=== PATIENT | female | born 1975 | race Hispanic/Latino ===

== ENCOUNTER 2018-02-08 07:41 | Emergency (ER) | payer BC ==
--- NOTE | 2018-02-08 08:19 | ER ---
Nurse's Notes [facility] Name: Melody Hoffman Age: 42 yrs Sex: Female : 1975 Arrival Date: 02/08/2018 Time: 07:43 Bed 14 Private MD: Zev Jean Baptiste Diagnosis: Cutaneous abscess of right lower limb Presentation: 02/08 07:59 Presenting complaint: Patient states: abscess to right inner thigh since Thursday, she iw squeezed it on Thursday and has been draining, also feels like her right knee is swollen and her thigh is painful, denies fever, c/o nausea. Transition of care: patient was not received from another setting of care. Onset of symptoms was February 05, 2018. Risk Assessment: Do you want to hurt yourself or someone else? Patient reports no desire to harm self or others. Initial Sepsis Screen: Does the patient meet any 2 criteria? No. Patient's initial sepsis screen is negative. Does the patient have a suspected source of infection? No. Patient's initial sepsis screen is negative. Care prior to arrival: None. 07:59 Method Of Arrival: Ambulatory iw 07:59 Acuity: ALMA 4 iw Triage Assessment: 08:25 Bite description: bite sustained to right leg and medial aspect of right thigh by an hj unknown animal, animal information: vaccination(s) is not applicable. General: Appears in no apparent distress. uncomfortable, Behavior is calm, cooperative, appropriate for age. Pain: Complains of pain in right leg and medial aspect of right thigh. 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 - Social history:: Smoking status: Patient/guardian denies using tobacco. - Ebola Screening: : Patient negative for fever greater than or equal to 101.5 degrees Fahrenheit, and additional compatible Ebola Virus Disease symptoms Patient denies exposure to infectious person Patient denies travel to an Ebola-affected area in the 21 days before illness onset No symptoms or risks identified at this time. Screenin:25 Abuse screen: Denies threats or abuse. Denies injuries from another. Nutritional hj screening: No deficits noted. Tuberculosis screening: No symptoms or risk factors identified. Fall Risk None identified. Assessment: 08:25 Derm: Skin Skin is pink, warm \T\ dry. hj Vital Signs: 08:03 BP 156 / 105; Pulse 70; Resp 16; Temp 98.2; Pulse Ox 97% on R/A; Weight 103.42 kg; iw Height 5 ft. 3 in. (160.02 cm); Pain 7/10; 08:03 Body Mass Index 40.39 (103.42 kg, 160.02 cm) iw ED Course: 07:43 Patient arrived in ED. rg4 07:44 Zev Jean Baptiste MD is Private Physician. rg4 07:48 Dori Luna FNP-C [facility]. kb 07:48 Giovanni Poon MD is Attending Physician. kb 08:02 Triage completed. iw 08:03 Arm band placed on. iw 08:24 Cortez Leon, RN is Primary Nurse. hj 08:24 Wound Culture Sent. hj 08:26 Patient has correct armband on for positive identification. Placed in gown. Bed in low hj position. Call light in reach. Side rails up X 1. 08:33 No provider procedures requiring assistance completed. Patient did not have IV access hj during this emergency room visit. Administered Medications: 08:18 Drug: Bactrim (160 mg-800 mg (DS) 1 tablet Route: PO; hj 08:24 Follow up: Response: No adverse reaction hj Outcome: 08:18 Discharge ordered by . kb 08:33 Discharged to home ambulatory, with family. hj 08:33 Condition: stable 08:33 Discharge instructions given to patient, family, Instructed on discharge instructions, follow up and referral plans. medication usage, Demonstrated understanding of instructions, follow-up care, medications, Prescriptions given X 1. 08:34 Patient left the ED. hj Addendum: 02/11/2018 10:20 Addendum: Culture Results: Positive wound culture. No further action required. Bacteria s s sensitive to prescribed antibiotic. Signatures: Dori Luna FNP-C FNP-Ckb Williams, Irene, RN RN Chel Neal RN RN Cortez Leon RN RN Opal Flowers rg4
--- NOTE | 2018-02-08 08:19 | EDPHYS ---
Physician Documentation [facility] Name: Melody Hoffman Age: 42 yrs Sex: Female : 1975 Arrival Date: 02/08/2018 Time: 07:43 Bed 14 Private MD: Zev Jean Baptiste ED Physician Giovanni Poon HPI: 02/08 08:17 This 42 yrs old Female presents to ER via Ambulatory with complaints of Insect kb Bite. 08:17 The patient presents with an abscess of the medial aspect of right thigh. Description: kb draining, erythematous, swollen. Onset: The symptoms/episode began/occurred 4 day(s) ago. Possible cause(s): unknown. Associated signs and symptoms: Pertinent positives: drainage, erythema, swelling, Pertinent negatives: foreign body sensation, fever, headache, nausea, shortness of breath, vomiting. Modifying factors: the symptoms are alleviated by nothing, the symptoms are aggravated by squeezing the lesion and expressing the contents, touching. Severity of symptoms: At their worst the symptoms were mild, in the emergency department the symptoms are unchanged. The patient has not experienced similar symptoms in the past. The patient has not recently seen a physician. 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 - Social history:: Smoking status: Patient/guardian denies using tobacco. - Ebola Screening: : Patient negative for fever greater than or equal to 101.5 degrees Fahrenheit, and additional compatible Ebola Virus Disease symptoms Patient denies exposure to infectious person Patient denies travel to an Ebola-affected area in the 21 days before illness onset No symptoms or risks identified at this time. ROS: 08:16 Constitutional: Negative for fever, chills, and weight loss, Cardiovascular: Negative kb for chest pain, palpitations, and edema, Respiratory: Negative for shortness of breath, cough, wheezing, and pleuritic chest pain, Abdomen/GI: Negative for abdominal pain, nausea, vomiting, diarrhea, and constipation, MS/Extremity: Negative for injury and deformity, Neuro: Negative for headache, weakness, numbness, tingling, and seizure. 08:16 Skin: Positive for abscess, of the medial aspect of right thigh. Exam: 08:16 Constitutional: This is a well developed, well nourished patient who is awake, alert, kb and in no acute distress. Head/Face: Normocephalic, atraumatic. Chest/axilla: Normal chest wall appearance and motion. Nontender with no deformity. No lesions are appreciated. Cardiovascular: Regular rate and rhythm with a normal S1 and S2. No gallops, murmurs, or rubs. Normal PMI, no JVD. No pulse deficits. Respiratory: Lungs have equal breath sounds bilaterally, clear to auscultation and percussion. No rales, rhonchi or wheezes noted. No increased work of breathing, no retractions or nasal flaring. Abdomen/GI: Soft, non-tender, with normal bowel sounds. No distension or tympany. No guarding or rebound. No evidence of tenderness throughout. MS/ Extremity: Pulses equal, no cyanosis. Neurovascular intact. Full, normal range of motion. Neuro: Awake and alert, GCS 15, oriented to person, place, time, and situation. Cranial nerves II-XII grossly intact. Motor strength 5/5 in all extremities. Sensory grossly intact. Cerebellar exam normal. Normal gait. 08:16 Skin: abscess, that is small, of the medial aspect of right thigh, with drainage, that is purulent. Vital Signs: 08:03 BP 156 / 105; Pulse 70; Resp 16; Temp 98.2; Pulse Ox 97% on R/A; Weight 103.42 kg; iw Height 5 ft. 3 in. (160.02 cm); Pain 7/10; 08:03 Body Mass Index 40.39 (103.42 kg, 160.02 cm) iw MDM: 07:52 Patient medically screened. kb 08:16 Data reviewed: vital signs, nurses notes. Data interpreted: Pulse oximetry: on room air kb is 97 %. Interpretation: normal. Counseling: I had a detailed discussion with the patient and/or guardian regarding: the historical points, exam findings, and any diagnostic results supporting the discharge/admit diagnosis, lab results, the need for outpatient follow up, a family practitioner, to return to the emergency department if symptoms worsen or persist or if there are any questions or concerns that arise at home. 02/08 08:15 Order name: Wound Culture kb Administered Medications: 08:18 Drug: Bactrim (160 mg-800 mg (DS) 1 tablet Route: PO; hj 08:24 Follow up: Response: No adverse reaction Disposition: 13:27 Co-signature as Attending Physician, Giovanni Poon MD I agree with the assessment and vicente plan of care. Disposition: 02/08/18 08:18 Discharged to Home. Impression: Cutaneous abscess of right lower limb. - Condition is Stable. - Discharge Instructions: Skin Abscess, [id number]. - Prescriptions for Bactrim DS 800- 160 mg Oral Tablet - take 1 tablet by ORAL route every 12 hours for 7 days; 14 tablet. - Work release form, Medication Reconciliation Form, Thank You Letter, Antibiotic Education, Family Work Release form. - Follow up: Emergency Department; When: As needed; Reason: Worsening of condition. Follow up: Private Physician; When: 2 - 3 days; Reason: Recheck today's complaints, Continuance of care, Re-evaluation by your physician. Signatures: Dispatcher [employer] EDDori Griggs, VALANCE CUTTER-C VALANCE CUTTER-Ckb Giovanni Poon MD MD cha Williams, Irene, JORDY RN Cortez Cunha RN RN Corrections: (The following items were deleted from the chart) 08:34 08:18 02/08/2018 08:18 Discharged to Home. Impression: Cutaneous abscess of right lower hj limb. Condition is Stable. Forms are Medication Reconciliation Form, Thank You Letter, Antibiotic Education, Prescription Opioid Use. Follow up: Emergency Department; When: As needed; Reason: Worsening of condition. Follow up: Private Physician; When: 2 - 3 days; Reason: Recheck today's complaints, Continuance of care, Re-evaluation by your physician. kb
[2018-02-08] MEDS ORDERED: SMZ./TMP. 800/160 MG TABLET ONE (08:26)
[2018-02-08 08:38] VITALS: BP 156/105; TEMP 98.2; O2SAT 97
== END 2018-02-08 08:34 | disposition home or self-care (01) ==
LOC: ER 07:41
DX: L02.415 Cutaneous abscess of right lower limb (principal); I10 Essential (primary) hypertension
CPT/HCPCS: 87070; 87077; 87186; 87205; 99283

== ENCOUNTER 2018-02-28 13:50 | Emergency (ER) | payer BC ==
[2018-02-28] MEDS ORDERED: HYDROCODONE/APAP 10/325 TAB ONE (15:38)
[2018-02-28] MEDS ORDERED: IBUPROFEN 200 MG TAB PO ONE (15:38)
[2018-02-28] MEDS ORDERED: IBUPROFEN 400 MG TAB ONE (15:38)
--- NOTE | 2018-02-28 16:44 | RAD REPORT ---
EXAM DESCRIPTION: RAD - Ankle Left 3 View - 02/28/2018 4:31 pm CLINICAL HISTORY: PAIN COMPARISON: No comparisons FINDINGS: Soft tissue swelling is seen about the ankle. A fracture is not identified. Small calcanea l spur seen. IMPRESSION: Soft tissue swelling without fracture.
--- NOTE | 2018-02-28 16:45 | RAD REPORT ---
EXAM DESCRIPTION: RAD - Knee Left 3 View - 02/28/2018 4:31 pm CLINICAL HISTORY: PAIN COMPARISON: No comparisons FINDINGS: Mild medial joint compartment space narrowing is present. No acute fracture or dislocation is seen. Soft tissue swelling is evident.
--- NOTE | 2018-02-28 16:45 | RAD REPORT ---
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 Small suprapatellar joint effusion is present. No acute fracture delineated.
--- NOTE | 2018-02-28 17:34 | ER ---
Nurse's Notes [facility] Name: Melody Hoffman Age: 42 yrs Sex: Female : 1975 Arrival Date: 02/28/2018 Time: 13:53 Bed 27 Private MD: Zev Jean Baptiste Diagnosis: Pain in left ankle and joints of left foot;Pain in right knee;Pain in left knee Presentation: 02/28 13:58 Presenting complaint: Patient states: last night i fell though a porch and hurt my L hj knee and L ankle; denies hitting head and LOC:. Transition of care: patient was not received from another setting of care. Onset of symptoms was February 28, 2018. Risk Assessment: Do you want to hurt yourself or someone else? Patient reports no desire to harm self or others. Initial Sepsis Screen: Does the patient meet any 2 criteria? No. Patient's initial sepsis screen is negative. Does the patient have a suspected source of infection? No. Patient's initial sepsis screen is negative. Care prior to arrival: None. 13:58 Method Of Arrival: Ambulatory 13:58 Acuity: ALMA 4 hj Triage Assessment: 14:00 General: Appears in no apparent distress. uncomfortable, Behavior is calm, cooperative, hj appropriate for age. Pain: Complains of pain in left leg. 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 - Social history:: Smoking status: Patient/guardian denies using tobacco, Patient uses alcohol, occasionally. - Ebola Screening: : Patient negative for fever greater than or equal to 101.5 degrees Fahrenheit, and additional compatible Ebola Virus Disease symptoms Patient denies exposure to infectious person Patient denies travel to an Ebola-affected area in the 21 days before illness onset. Screenin:00 Abuse screen: Denies threats or abuse. Denies injuries from another. Nutritional hj screening: No deficits noted. Tuberculosis screening: No symptoms or risk factors identified. Fall Risk None identified. Assessment: 17:08 Musculoskeletal: Circulation, motion, and sensation intact. Capillary refill < 3 mg2 seconds, Swelling present in left leg, left ankle. Vital Signs: 14:00 BP 130 / 92; Pulse 88; Resp 18; Temp 98.0(O); Pulse Ox 100% on R/A; Weight 95.25 kg; hj Height 5 ft. 3 in. (160.02 cm); Pain 10/10; 16:59 BP 137 / 81; Pulse 77; Resp 18; Pulse Ox 100% on R/A; mg2 17:32 BP 127 / 80; Pulse 88; Resp 18; Pulse Ox 100% on R/A; mg2 14:00 Body Mass Index 37.20 (95.25 kg, 160.02 cm) hj ED Course: 13:53 Patient arrived in ED. mr 13:54 Zev Jean Baptiste MD is Private Physician. mr 13:59 Triage completed. hj 14:00 Arm band placed on right wrist. hj 14:02 Patient has correct armband on for positive identification. Bed in low position. Call hj light in reach. Side rails up X 1. Adult w/ patient. 15:01 Edson Rajan, PHIL is PHCP. pm1 15:01 Delmer Mirza MD is Attending Physician. pm1 15:30 Marcello Blanco RN is Primary Nurse. mg2 16:26 X-ray completed. Portable x-ray completed in exam room. Patient tolerated procedure la2 well. 16:31 Knee Left 3 View XRAY In Process Unspecified. EDMS 16:31 Knee Right 3 View XRAY In Process Unspecified. EDMS 16:31 Ankle Left 3 View XRAY In Process Unspecified. EDMS 16:59 No provider procedures requiring assistance completed. Patient did not have IV access mg2 during this emergency room visit. 17:20 Crutch training done. Air stirrup applied to left ankle. mg2 17:33 Curtis Becerra MD is Referral Physician. pm1 Administered Medications: 15:57 Drug: [place] 10 mg-325 mg 1 tabs Route: PO; mg2 17:19 Follow up: Response: No adverse reaction; Marked relief of symptoms mg2 15:57 Drug: Ibuprofen 600 mg Route: PO; mg2 17:19 Follow up: Response: No adverse reaction; Marked relief of symptoms mg2 Outcome: 17:33 Discharge ordered by . pm1 17:48 Discharged to home via wheelchair. mg2 17:48 Condition: stable 17:48 Discharge instructions given to patient, Instructed on discharge instructions, follow up and referral plans. medication usage, crutch walking, Demonstrated understanding of instructions, follow-up care, crutch walking, Prescriptions given X 2. 17:48 Patient left the ED. mg2 Signatures: Dispatcher [employer] EDMA KaelChiara Henry, RN RN Edson Vasquez NP COFFEE TASTER pm1 Angie Moses la2 Marcello Blanco RN RN mg2
--- NOTE | 2018-02-28 17:34 | EDPHYS ---
Physician Documentation [facility] Name: Melody Hoffman Age: 42 yrs Sex: Female : 1975 Arrival Date: 02/28/2018 Time: 13:53 Bed 27 Private MD: Zev Jean Baptiste ED Physician Delmer Mirza HPI: 02/28 17:00 This 42 yrs old Female presents to ER via Ambulatory with complaints of Fall pm1 Injury. 17:00 Onset: The symptoms/episode began/occurred last night. Severity of symptoms: in the pm1 emergency department the symptoms are unchanged. The patient has not experienced similar symptoms in the past. Patient was walking on a rotten porch last night and her right leg broke through the porch with her left leg moving laterally, as if she was doing the splits. Patient complaining of pain to left ankle and bilateral knees. 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 - Social history:: Smoking status: Patient/guardian denies using tobacco, Patient uses alcohol, occasionally. - Ebola Screening: : Patient negative for fever greater than or equal to 101.5 degrees Fahrenheit, and additional compatible Ebola Virus Disease symptoms Patient denies exposure to infectious person Patient denies travel to an Ebola-affected area in the 21 days before illness onset. ROS: 17:00 Constitutional: Negative for fever, chills, and weight loss, Eyes: Negative for injury, pm1 pain, redness, and discharge, ENT: Negative for injury, pain, and discharge, Neck: Negative for injury, pain, and swelling, Cardiovascular: Negative for chest pain, palpitations, and edema, Respiratory: Negative for shortness of breath, cough, wheezing, and pleuritic chest pain, Abdomen/GI: Negative for abdominal pain, nausea, vomiting, diarrhea, and constipation, Back: Negative for injury and pain, : Negative for injury, bleeding, discharge, and swelling. 17:00 Skin: Negative for injury, rash, and discoloration, Neuro: Negative for headache, weakness, numbness, tingling, and seizure. 17:00 MS/extremity: Positive for pain, left knee, right knee, and right ankle. Exam: 17:00 Constitutional: This is a well developed, well nourished patient who is awake, alert, pm1 and in no acute distress. Head/Face: Normocephalic, atraumatic. Eyes: Pupils equal round and reactive to light, extra-ocular motions intact. Lids and lashes normal. Conjunctiva and sclera are non-icteric and not injected. Cornea within normal limits. Periorbital areas with no swelling, redness, or edema. ENT: Nares patent. No nasal discharge, no septal abnormalities noted. Tympanic membranes are normal and external auditory canals are clear. Oropharynx with no redness, swelling, or masses, exudates, or evidence of obstruction, uvula midline. Mucous membranes moist. Neck: Trachea midline, no thyromegaly or masses palpated, and no cervical lymphadenopathy. Supple, full range of motion without nuchal rigidity, or vertebral point tenderness. No Meningismus. Chest/axilla: Normal chest wall appearance and motion. Nontender with no deformity. No lesions are appreciated. Cardiovascular: Regular rate and rhythm with a normal S1 and S2. No gallops, murmurs, or rubs. Normal PMI, no JVD. No pulse deficits. Respiratory: Lungs have equal breath sounds bilaterally, clear to auscultation and percussion. No rales, rhonchi or wheezes noted. No increased work of breathing, no retractions or nasal flaring. Abdomen/GI: Soft, non-tender, with normal bowel sounds. No distension or tympany. No guarding or rebound. No evidence of tenderness throughout. Back: No spinal tenderness. No costovertebral tenderness. Full range of motion. 17:00 Skin: Warm, dry with normal turgor. Normal color with no rashes, no lesions, and no evidence of cellulitis. 17:00 Musculoskeletal/extremity: Extremities: grossly normal except: noted in the right knee: pain, noted in the left knee: tenderness, noted in the left lateral ankle: swelling, tenderness. 17:00 Musculoskeletal/extremity: ROM: intact in all extremities, Circulation is intact in all extremities. 17:00 Neuro: Orientation: is normal, Motor: is normal, no acute changes, moves all fours. Vital Signs: 14:00 BP 130 / 92; Pulse 88; Resp 18; Temp 98.0(O); Pulse Ox 100% on R/A; Weight 95.25 kg; hj Height 5 ft. 3 in. (160.02 cm); Pain 10/10; 16:59 BP 137 / 81; Pulse 77; Resp 18; Pulse Ox 100% on R/A; mg2 17:32 BP 127 / 80; Pulse 88; Resp 18; Pulse Ox 100% on R/A; mg2 14:00 Body Mass Index 37.20 (95.25 kg, 160.02 cm) hj MDM: 15:01 Patient medically screened. pm1 17:32 Data reviewed: vital signs. Counseling: I had a detailed discussion with the patient pm1 and/or guardian regarding: the historical points, exam findings, and any diagnostic results supporting the discharge/admit diagnosis, radiology results, the need for outpatient follow up, to return to the emergency department if symptoms worsen or persist or if there are any questions or concerns that arise at home. 02/28 17:25 Order name: Urine Dipstick--Ancillary (enter results) bd 02/28 17:25 Order name: Urine --Ancillary (enter results) bd 02/28 15:23 Order name: Knee Left 3 View XRAY; Complete Time: 16:48 pm1 02/28 15:23 Order name: Knee Right 3 View XRAY; Complete Time: 16:48 pm1 02/28 15:23 Order name: Ankle Left 3 View XRAY; Complete Time: 16:48 pm1 02/28 15:23 Order name: Urine Dipstick-Ancillary (obtain specimen); Complete Time: 15:57 pm1 02/28 15:23 Order name: Urine Test (obtain specimen); Complete Time: 15:57 pm1 02/28 16:49 Order name: Crutches; Complete Time: 17:19 pm1 02/28 16:49 Order name: Aircast Ankle Splint; Complete Time: 17:19 pm1 Administered Medications: 15:57 Drug: [place] 10 mg-325 mg 1 tabs Route: PO; mg2 17:19 Follow up: Response: No adverse reaction; Marked relief of symptoms mg2 15:57 Drug: Ibuprofen 600 mg Route: PO; mg2 17:19 Follow up: Response: No adverse reaction; Marked relief of symptoms mg2 Disposition: 03/01 09:58 Co-signature as Attending Physician, Delmer Mirza MD. Chart complete. ma2 Disposition: 02/28/18 17:33 Discharged to Home. Impression: Pain in left ankle and joints of left foot, Pain in right knee, Pain in left knee. - Condition is Stable. - Discharge Instructions: Cast or Splint Care, Adult, Crutch Use, Knee Pain, Ankle Pain. - Prescriptions for Tylenol- Codeine #3 300-30 mg Oral Tablet - take 2 tablets by ORAL route every 6 hours As needed; 20 tablet. Naprosyn 500 mg Oral Tablet - take 1 tablet by ORAL route 2 times per day take with food; 30 tablet. - Medication Reconciliation Form, Thank You Letter, Prescription Opioid Use form. - Follow up: Emergency Department; When: As needed; Reason: Worsening of condition. Follow up: Curtis Becerra MD; When: 5 - 6 days; Reason: Recheck today's complaints, Continuance of care, Re-evaluation by your physician. Follow up: Private Physician; When: 5 - 6 days; Reason: Recheck today's complaints, Continuance of care, Re-evaluation by your physician. - Problem is new. - Symptoms have improved. Signatures: Dispatcher [employer] EDMS Cortez Leon RN RN hj Edson Rajan NP WASH OPERATOR pm1 Delmer Mirza MD MD ma2 Marcello Blanco RN RN mg2 Corrections: (The following items were deleted from the chart) 02/28 17:48 17:33 02/28/2018 17:33 Discharged to Home. Impression: Pain in left ankle and joints of mg2 left foot; Pain in right knee; Pain in left knee. Condition is Stable. Forms are Medication Reconciliation Form, Thank You Letter, Antibiotic Education, Prescription Opioid Use. Follow up: Emergency Department; When: As needed; Reason: Worsening of condition. Follow up: Curtis Becerra; When: 5 - 6 days; Reason: Recheck today's complaints, Continuance of care, Re-evaluation by your physician. Follow up: Private Physician; When: 5 - 6 days; Reason: Recheck today's complaints, Continuance of care, Re-evaluation by your physician. Problem is new. Symptoms have improved. pm1
[2018-02-28 22:07] LABS: Urine Blood NEGATIVE (NEG); Urine Glucose NEGATIVE (NEG); Urine Protein NEGATIVE (NEG)
[2018-03-02 13:58] VITALS: BP 127/80; TEMP 98; O2SAT 100
== END 2018-02-28 17:48 | disposition home or self-care (01) ==
LOC: ER 13:50
DX: M25.562 Pain in left knee (principal); M25.561 Pain in right knee; I10 Essential (primary) hypertension
CPT/HCPCS: 81003; 81025; 99284

== ENCOUNTER 2018-04-19 18:31 | Emergency (ER) | payer BC, SELFPAY ==
[2018-04-19] MEDS ORDERED: DEXAMETHASONE 4 MG TAB ONE (19:36)
--- NOTE | 2018-04-19 20:11 | EDPHYS ---
Physician Documentation [facility] Name: Melody Hoffman Age: 43 yrs Sex: Female : 1975 Arrival Date: 04/19/2018 Time: 18:35 Bed 11 Private MD: Zev Jean Baptiste ED Physician Adolfo Schafer HPI: 04/19 19:17 This 43 yrs old Female presents to ER via Ambulatory with complaints of Ear snw Pain, Sore Throat. 19:17 The patient presents with pain. The complaints affect the bilateral. Onset: The snw symptoms/episode began/occurred suddenly, 3 day(s) ago, and became worse and became persistent. Associated signs and symptoms: Pertinent positives: sore throat. Severity of symptoms: At their worst the symptoms were moderate severe. The patient has not experienced similar symptoms in the past. It is unknown whether or not the patient has recently seen a physician. 19:[address] Jean Baptiste. 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 - Social history:: Smoking status: Patient/guardian denies using tobacco, Patient uses alcohol, occasionally. Patient/guardian denies using street drugs, IV drugs. - Ebola Screening: : No symptoms or risks identified at this time. ROS: 19:16 Constitutional: Negative for fever, chills, and weight loss, Eyes: Negative for injury, snw pain, redness, and discharge, Neck: Negative for injury, pain, and swelling, Cardiovascular: Negative for chest pain, palpitations, and edema, Respiratory: Negative for shortness of breath, cough, wheezing, and pleuritic chest pain, Abdomen/GI: Negative for abdominal pain, nausea, vomiting, diarrhea, and constipation, Back: Negative for injury and pain, : Negative for injury, bleeding, discharge, and swelling, MS/Extremity: Negative for injury and deformity, Skin: Negative for injury, rash, and discoloration, Neuro: Negative for headache, weakness, numbness, tingling, and seizure. 19:16 ENT: Positive for sinus congestion, sore throat. Exam: 19:10 Constitutional: This is a well developed, well nourished patient who is awake, alert, snw and in no acute distress. Head/Face: Normocephalic, atraumatic. Eyes: Pupils equal round and reactive to light, extra-ocular motions intact. Lids and lashes normal. Conjunctiva and sclera are non-icteric and not injected. Cornea within normal limits. Periorbital areas with no swelling, redness, or edema. Neck: Trachea midline, no thyromegaly or masses palpated, and no cervical lymphadenopathy. Supple, full range of motion without nuchal rigidity, or vertebral point tenderness. No Meningismus. Chest/axilla: Normal chest wall appearance and motion. Nontender with no deformity. No lesions are appreciated. Cardiovascular: Regular rate and rhythm with a normal S1 and S2. No gallops, murmurs, or rubs. Normal PMI, no JVD. No pulse deficits. Respiratory: Lungs have equal breath sounds bilaterally, clear to auscultation and percussion. No rales, rhonchi or wheezes noted. No increased work of breathing, no retractions or nasal flaring. Abdomen/GI: Soft, non-tender, with normal bowel sounds. No distension or tympany. No guarding or rebound. No evidence of tenderness throughout. Back: No spinal tenderness. No costovertebral tenderness. Full range of motion. Skin: Warm, dry with normal turgor. Normal color with no rashes, no lesions, and no evidence of cellulitis. MS/ Extremity: Pulses equal, no cyanosis. Neurovascular intact. Full, normal range of motion. Neuro: Awake and alert, GCS 15, oriented to person, place, time, and situation. Cranial nerves II-XII grossly intact. Motor strength 5/5 in all extremities. Sensory grossly intact. Cerebellar exam normal. Normal gait. 19:10 ENT: External ear(s): are unremarkable, Ear canal(s): are normal, TM's: are normal, Nose: is normal, Mouth: Oral mucosa: moist, Tongue: is normal, Posterior pharynx: swelling, is not appreciated, erythema, that is moderate, that is marked, exudate, that is mild, that is moderate, Voice: is normal. 19:10 Neck: External neck: no acute changes, Lymph nodes: lymphadenopathy is appreciated, anterior cervical nodes, + severe tenderness. Vital Signs: 18:51 BP 172 / 102; Pulse 83; Resp 18; Temp 99.2(O); Pulse Ox 98% on R/A; Weight 90.72 kg; mg2 Height 5 ft. 3 in. (160.02 cm); Pain 5/10; 18:51 Body Mass Index 35.43 (90.72 kg, 160.02 cm) mg2 MDM: 19:01 Patient medically screened. snw 20:12 Data reviewed: vital signs, nurses notes. Data interpreted: Pulse oximetry: on room air snw is 98 %. Interpretation: normal. Counseling: I had a detailed discussion with the patient and/or guardian regarding: the historical points, exam findings, and any diagnostic results supporting the discharge/admit diagnosis, the presence of at least one elevated blood pressure reading (>120/80) during this emergency department visit, lab results, the need for outpatient follow up, to return to the emergency department if symptoms worsen or persist or if there are any questions or concerns that arise at home. Special discussion: Based on the history and exam findings, there is no indication for further emergent testing or inpatient evaluation. I discussed with the patient/guardian the need to see the primary care provider for further evaluation of the symptoms. 04/19 18:53 Order name: Strep; Complete Time: 19:38 mg2 04/19 18:54 Order name: Flu; Complete Time: 19:56 snw 04/19 19:41 Order name: Throat Culture EDMS Administered Medications: 19:34 Drug: Decadron 10 mg Route: PO; aj1 20:46 Follow up: Response: No adverse reaction aj1 Disposition: 04/19/18 20:10 Discharged to Home. Impression: Acute pharyngitis. - Condition is Stable. - Discharge Instructions: Hypertension, Pharyngitis, Rehydration, Adult. - Prescriptions for Tessalon Perles 100 mg Oral Capsule - take 1 capsule by ORAL route every 8 hours As needed; 15 capsule. Prednisone 20 mg Oral Tablet - take 2 tablet by ORAL route once daily for 5 days; 10 tablet. - Work release form, Medication Reconciliation Form, Thank You Letter, Antibiotic Education, Prescription Opioid Use form. - Follow up: Zev Jean Baptiste MD; When: 2 - 3 days; Reason: Recheck today's complaints, Continuance of care, Re-evaluation by your physician. Follow up: Emergency Department; When: As needed; Reason: Worsening of condition. Addendum: 04/21/2018 20:52 Co-signature as Attending Physician, Adolfo Schafer MD. g s Signatures: Dispatcher [employer] EDMica Smith RN RN aj1 Sonal Padilla, TESTS SUPERINTENDENT-C TESTS SUPERINTENDENT-Csnw Adolfo Schafer MD MD Marcello Blanco RN RN mg2 Corrections: (The following items were deleted from the chart) 04/19 20:46 20:10 04/19/2018 20:10 Discharged to Home. Impression: Acute pharyngitis. Condition is aj1 Stable. Forms are Medication Reconciliation Form, Thank You Letter, Antibiotic Education, Prescription Opioid Use. Follow up: Zev Jean Baptiste; When: 2 - 3 days; Reason: Recheck today's complaints, Continuance of care, Re-evaluation by your physician. Follow up: Emergency Department; When: As needed; Reason: Worsening of condition. snw
--- NOTE | 2018-04-19 20:11 | ER ---
Nurse's Notes [facility] Name: Melody Hoffman Age: 43 yrs Sex: Female : 1975 Arrival Date: 04/19/2018 Time: 18:35 Bed 11 Private MD: Zev Jean Baptiste Diagnosis: Acute pharyngitis Presentation: 04/19 18:50 Presenting complaint: Patient states: she has fever, sore throat and bilateral ear pain mg2 for 3 days. tylenol taken \T\ 1500H. Transition of care: patient was not received from another setting of care. Onset of symptoms was April 16, 2018. Risk Assessment: Do you want to hurt yourself or someone else? Patient reports no desire to harm self or others. Initial Sepsis Screen: Does the patient meet any 2 criteria? No. Patient's initial sepsis screen is negative. Does the patient have a suspected source of infection? No. Patient's initial sepsis screen is negative. Care prior to arrival: None. 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 - Social history:: Smoking status: Patient/guardian denies using tobacco, Patient uses alcohol, occasionally. Patient/guardian denies using street drugs, IV drugs. - Ebola Screening: : No symptoms or risks identified at this time. Screenin:53 Abuse screen: Denies threats or abuse. Denies injuries from another. Nutritional mg2 screening: No deficits noted. Tuberculosis screening: No symptoms or risk factors identified. Fall Risk None identified. Assessment: 19:15 General: Appears in no apparent distress. uncomfortable, Behavior is calm, cooperative, aj1 appropriate for age. Pain: Complains of pain in left aspect of posterior pharynx and right aspect of posterior pharynx. Neuro: Level of Consciousness is awake, alert, obeys commands. Cardiovascular: Patient's skin is warm and dry. Respiratory: Airway is patent Respiratory effort is even, unlabored, Respiratory pattern is regular, symmetrical. GI: No signs and/or symptoms were reported involving the gastrointestinal system. : No signs and/or symptoms were reported regarding the genitourinary system. EENT: Reports difficulty swallowing. Derm: No signs and/or symptoms reported regarding the dermatologic system. Skin is pink, warm \T\ dry. normal. Musculoskeletal: No signs and/or symptoms reported regarding the musculoskeletal system. Circulation, motion, and sensation intact. 20:15 Reassessment: Patient appears in no apparent distress at this time. No changes from aj1 previously documented assessment. Patient and/or family updated on plan of care and expected duration. Pain level reassessed. Patient is alert, oriented x 3, equal unlabored respirations, skin warm/dry/pink. Vital Signs: 18:51 BP 172 / 102; Pulse 83; Resp 18; Temp 99.2(O); Pulse Ox 98% on R/A; Weight 90.72 kg; mg2 Height 5 ft. 3 in. (160.02 cm); Pain 5/10; 18:51 Body Mass Index 35.43 (90.72 kg, 160.02 cm) mg2 ED Course: 18:35 Patient arrived in ED. mr 18:35 Zev Jean Baptiste MD is Private Physician. mr 18:46 Marcello Blanco, JORDY is Primary Nurse. mg2 18:51 Triage completed. mg2 18:53 Sonal Padilla FNP-C is [facility]. snw 18:53 Adolfo Schafer MD is Attending Physician. snw 19:15 Patient has correct armband on for positive identification. Bed in low position. Call aj1 light in reach. 19:15 Arm band placed on. aj1 19:15 No provider procedures requiring assistance completed. Patient did not have IV access aj1 during this emergency room visit. 20:09 Zev Jean Baptiste MD is Referral Physician. snw Administered Medications: 19:34 Drug: Decadron 10 mg Route: PO; aj1 20:46 Follow up: Response: No adverse reaction aj1 Outcome: 20:10 Discharge ordered by . snw 20:46 Discharged to home ambulatory. aj1 20:46 Condition: good 20:46 Discharge instructions given to patient, Instructed on discharge instructions, follow up and referral plans. medication usage, Demonstrated understanding of instructions, follow-up care, medications, Prescriptions given X 1. 20:46 Patient left the ED. aj1 Signatures: Mica Vega RN RN aj1 Sonal Padilla, SUPERVISOR INSPECTION DEPARTMENT-C SUPERVISOR INSPECTION DEPARTMENT-Csnw Chiara Scruggs mr Marcello Blanco, RN RN mg2
[2018-04-19 21:08] VITALS: BP 172/102; TEMP 99.2; O2SAT 98
== END 2018-04-19 20:46 | disposition home or self-care (01) ==
LOC: ER 18:31
DX: J02.9 Acute pharyngitis, unspecified (principal); I10 Essential (primary) hypertension
CPT/HCPCS: 87070; 87081; 87804; 99283

== ENCOUNTER 2018-11-28 04:28 | Emergency (ER) | payer BC, SELFPAY ==
--- OUTSIDE RECORDS SUMMARY | 2018-11-28 04:30 | XMS REPORT ---
:1975 [facility] [address] [place] [address] Dr. Dave [address] [place] [id number] Care Team Providers Name Role Phone Unavailable Unavailable Unavailable Problems This patient has no known problems. Allergies, Adverse Reactions, Alerts This patient has no known allergies or adverse reactions. Medications This patient has no known medications.
--- NOTE | 2018-11-28 05:13 | EDPHYS ---
Physician Documentation [facility] Name: Melody Dominguez Age: 43 yrs Sex: Female : 1975 Arrival Date: 11/28/2018 Time: 04:29 Bed 5 Private MD: ED Physician Adolfo Schafer HPI: 11/28 05:01 This 43 yrs old Female presents to ER via Wheelchair with complaints of Knee gs Pain. 05:01 The patient presents with pain. The complaints affect the right knee. Onset: The gs symptoms/episode began/occurred 3 month(s) ago. Modifying factors: The symptoms are alleviated by nothing. the symptoms are aggravated by movement, weight bearing, bending knee. Associated signs and symptoms: Pertinent negatives calf tenderness, numbness. Treatment prior to arrival includes: no previous treatment. Severity of symptoms: At their worst the symptoms were moderate, in the emergency department the symptoms are unchanged. The patient has experienced similar episodes in the past, chronically. The patient has been recently seen by a physician: an orthopedic surgeon, 3 month(s) ago, with similar presenting complaints. 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 - Social history:: Smoking status: Patient/guardian denies using tobacco, Patient/guardian denies using alcohol, street drugs. - Ebola Screening: : Patient negative for fever greater than or equal to 101.5 degrees Fahrenheit, and additional compatible Ebola Virus Disease symptoms Patient denies exposure to infectious person Patient denies travel to an Ebola-affected area in the 21 days before illness onset. ROS: 05:01 All other systems are negative. gs Exam: 05:01 Cardiovascular: Regular rate and rhythm with a normal S1 and S2. No gallops, murmurs, gs or rubs. Normal PMI, no JVD. No pulse deficits. Respiratory: Lungs have equal breath sounds bilaterally, clear to auscultation and percussion. No rales, rhonchi or wheezes noted. No increased work of breathing, no retractions or nasal flaring. Back: No spinal tenderness. No costovertebral tenderness. Full range of motion. Skin: Warm, dry with normal turgor. Normal color with no rashes, no lesions, and no evidence of cellulitis. Neuro: Awake and alert, GCS 15, oriented to person, place, time, and situation. Cranial nerves II-XII grossly intact. Motor strength 5/5 in all extremities. Sensory grossly intact. Cerebellar exam normal. Normal gait. 05:01 Constitutional: The patient appears alert, awake. 05:01 Musculoskeletal/extremity: ROM: limited active range of motion due to pain, limited passive range of motion due to pain, Circulation is intact in all extremities. Joints: the right knee displays tenderness, mild swelling . Vital Signs: 04:50 BP 121 / 75; Pulse 70; Resp 17; Temp 97.5; Pulse Ox 97% ; Weight 99.79 kg; Height 5 ft. rr5 3 in. (160.02 cm); Pain 10/10; 04:50 Body Mass Index 38.97 (99.79 kg, 160.02 cm) rr5 MDM: 04:52 Patient medically screened. 05:01 Data reviewed: vital signs, nurses notes. Administered Medications: No medications were administered Disposition: 11/28/18 05:12 Discharged to Home. Impression: Encounter for screening, unspecified. - Condition is Stable. - Medication Reconciliation Form, Thank You Letter, Antibiotic Education, Prescription Opioid Use form. Signatures: Adolfo Schafer MD MD Robin Merida RN RN rr5 Corrections: (The following items were deleted from the chart) 05:16 05:12 11/28/2018 05:12 Discharged to Home. Impression: Encounter for screening, rr5 unspecified. Condition is Stable. Forms are Medication Reconciliation Form, Thank You Letter, Antibiotic Education, Prescription Opioid Use.
--- NOTE | 2018-11-28 05:13 | ER ---
Nurse's Notes [facility] Name: Melody Dominguez Age: 43 yrs Sex: Female : 1975 Arrival Date: 11/28/2018 Time: 04:29 Bed 5 Private MD: Diagnosis: Encounter for screening, unspecified Presentation: 11/28 04:45 Presenting complaint: Patient states: patient started several months ago right knee rr5 pain,seen by dr. brown advised for MRI but I have not done it yet. few days ago started having sharp pain, then last night unable to bend my knee and swelling on my right leg noted. its like a sharp pain right knee radiating right buttock. denies any trauma. Transition of care: patient was not received from another setting of care. Onset of symptoms was 2018. Risk Assessment: Do you want to hurt yourself or someone else? Patient reports no desire to harm self or others. Initial Sepsis Screen: Does the patient meet any 2 criteria? No. Patient's initial sepsis screen is negative. Does the patient have a suspected source of infection? No. Patient's initial sepsis screen is negative. Care prior to arrival: None. 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 - Social history:: Smoking status: Patient/guardian denies using tobacco, Patient/guardian denies using alcohol, street drugs. - Ebola Screening: : Patient negative for fever greater than or equal to 101.5 degrees Fahrenheit, and additional compatible Ebola Virus Disease symptoms Patient denies exposure to infectious person Patient denies travel to an Ebola-affected area in the 21 days before illness onset. Screenin:57 Abuse screen: Denies threats or abuse. Denies injuries from another. Nutritional rr5 screening: No deficits noted. Tuberculosis screening: No symptoms or risk factors identified. Fall Risk Ambulatory Aid- None/Bed Rest/Nurse Assist (0 pts). Gait- Impaired (20 pts.). Total Ramos Fall Scale indicates No Risk (0-24 pts). Assessment: 04:50 General: Appears in no apparent distress. uncomfortable, Behavior is calm, cooperative, rr5 appropriate for age. Pain: Complains of pain in right leg Pain radiates to right gluteus taylor Pain currently is 10 out of 10 on a pain scale. Quality of pain is described as sharp, Pain began gradually, Is intermittent. 04:50 Neuro: Level of Consciousness is awake, alert, obeys commands, Oriented to person, rr5 place, time, situation, Appropriate for age. Cardiovascular: Capillary refill < 3 seconds Patient's skin is warm and dry. Respiratory: Airway is patent Respiratory effort is even, unlabored, Respiratory pattern is regular, symmetrical. GI: No signs and/or symptoms were reported involving the gastrointestinal system. : No signs and/or symptoms were reported regarding the genitourinary system. EENT: No signs and/or symptoms were reported regarding the EENT system. Derm: Skin is intact, Skin temperature is warm. Musculoskeletal: Capillary refill < 3 seconds, Range of motion: limited in right knee Swelling present in right leg. 04:57 Reassessment: seen by ED provider ordered for medical screen. patient declined for the rr5 treatment. Vital Signs: 04:50 BP 121 / 75; Pulse 70; Resp 17; Temp 97.5; Pulse Ox 97% ; Weight 99.79 kg; Height 5 ft. rr5 3 in. (160.02 cm); Pain 10/10; 04:50 Body Mass Index 38.97 (99.79 kg, 160.02 cm) rr5 ED Course: 04:29 Patient arrived in ED. ds1 04:40 Adolfo Schafer MD is Attending Physician. gs 04:45 Robin Merida, JORDY is Primary Nurse. rr5 04:50 Arm band placed on. rr5 04:50 Patient has correct armband on for positive identification. rr5 04:51 Triage completed. rr5 05:01 No provider procedures requiring assistance completed. Patient did not have IV access rr5 during this emergency room visit. Administered Medications: No medications were administered Outcome: 05:00 Medical screen evaluation completed per provider. Patient declined treatment. rr5 05:00 Condition: unchanged 05:00 Following a medical screening exam, the patient was provided information regarding alternative care sites and resources available per registration personnel. 05:12 Discharge ordered by . lesly 05:16 Patient left the ED. rr5 Signatures: Ana Bravo ds1 Adolfo Schafer MD MD gs Roque, Raymond RN RN rr5
[2018-11-28 06:00] VITALS: BP 121/75; TEMP 97.5; O2SAT 97
== END 2018-11-28 05:16 | disposition home or self-care (01) ==
LOC: ER 04:28
DX: M25.561 Pain in right knee (principal); I10 Essential (primary) hypertension; E11.9 Type 2 diabetes mellitus without complications
CPT/HCPCS: 99281

== ENCOUNTER 2019-01-17 15:17 | Emergency (ER) | payer BC ==
--- OUTSIDE RECORDS SUMMARY | 2019-01-17 15:19 | XMS REPORT ---
:1975 [facility] Address [address] [place] [address] Dr. Dave [address] [place] [id number] Care Team Providers Name Role Phone Unavailable Unavailable Unavailable Problems This patient has no known problems. Allergies, Adverse Reactions, Alerts This patient has no known allergies or adverse reactions. Medications This patient has no known medications.
[2019-01-17 16:17] LABS: Absolute Lymphocytes (CBC) 1.7 K/uL (0.7-4.9); Basophils % 0.8 % (0-1.3); Hematocrit 34.2 % (36.0-45.0); Lymphocytes % 23.6 % (15.3-44.8); MPV 9.8 fL (7.6-11.3); RBC Red Blood Cell Count 4.29 M/uL (3.86-4.86)
[2019-01-17 16:18] LABS: Protime INR 0.92
[2019-01-17 16:36] LABS: ALT/SGPT 25 U/L (12-78); AST/SGOT 18 U/L (15-37); Albumin 3.2 g/dL (3.4-5.0); Alkaline Phosphatase 75 U/L (45-117); BUN Blood Urea Nitrogen 9 mg/dL (7-18); Bicarbonate 28 mmol/L (21-32); Bilirubin Direct < 0.1 mg/dL (0-0.2); Bilirubin Total 0.2 mg/dL (0.2-1.0); Glucose Level 129 mg/dL (74-106); Lipase 187 U/L (73-393); Magnesium 1.5 mg/dL (1.8-2.4); NT PRO-BNP 224 pg/mL (<125); Potassium 3.4 mmol/L (3.5-5.1); Protein, Total 6.7 g/dL (6.4-8.2); Sodium Level 142 mmol/L (136-145); Troponin (Emerg Dept Use Only) < 0.02 ng/mL (0.0-0.045)
[2019-01-17 16:41] LABS: Urine Blood NEGATIVE (NEG); Urine Glucose NEGATIVE (NEG); Urine Protein NEGATIVE (NEG); Urine pH 5.5 (5.0-7.0)
[2019-01-17] MEDS ORDERED: NA CHLORIDE 0.9% 1,000 ML ONE (16:45)
--- NOTE | 2019-01-17 16:55 | ER ---
Nurse's Notes [facility] Name: Melody Dominguez Age: 43 yrs Sex: Female : 1975 Arrival Date: 01/17/2019 Time: 15:19 Bed 19 Private MD: Zev Jean Baptiste Diagnosis: Dizziness and giddiness;Essential (primary) hypertension;Type 2 diabetes mellitus;Hypokalemia;Hypomagnesemia Presentation: 01/17 15:22 Presenting complaint: Patient states: fatigue, dizziness, BLE and BUE swelling started sv today. Transition of care: patient was not received from another setting of care. Onset of symptoms was January 17, 2019. Risk Assessment: Do you want to hurt yourself or someone else? Patient reports no desire to harm self or others. Care prior to arrival: None. 15:22 Method Of Arrival: Ambulatory sv 15:22 Acuity: ALMA 3 sv Triage Assessment: 15:22 General: Appears in no apparent distress. uncomfortable, well developed, Behavior is sv cooperative. General: Reports fatigue for 0-12 hours. Neuro: Level of Consciousness is awake, alert, obeys commands, Oriented to person, place, time, situation, Gait is steady, Reports dizziness. Respiratory: Respiratory effort is even, unlabored, Respiratory pattern is regular, symmetrical. Musculoskeletal: Reports swelling. Historical: - Allergies: 15:23 NKA; sv - PMHx: 15:23 Anemia; Diabetes - NIDDM; Hypertension; Vitamin B12 Deficiency; sv - PSHx: 15:23 Cholecystectomy; Gastric Bypass; laparoscopy reversal of gastric sleeve; sv - Immunization history:: Adult Immunizations up to date. - Social history:: Smoking status: Patient/guardian denies using tobacco. - Ebola Screening: : No symptoms or risks identified at this time. - Family history:: not pertinent. Screenin:37 Abuse screen: Denies injuries from another. Nutritional screening: No deficits noted. la1 Tuberculosis screening: No symptoms or risk factors identified. Fall Risk None identified. Assessment: 15:36 General: Appears in no apparent distress. Behavior is calm, cooperative. Pain: Denies la1 pain. Neuro: Level of Consciousness is awake, alert, obeys commands, Oriented to person, place, time, situation. Cardiovascular: Capillary refill < 3 seconds Patient's skin is warm and dry. Cardiovascular: Heart tones S1 S2 present. Respiratory: Airway is patent Respiratory effort is even, unlabored, Respiratory pattern is regular, symmetrical. GI: No signs and/or symptoms were reported involving the gastrointestinal system. : No signs and/or symptoms were reported regarding the genitourinary system. 17:08 Reassessment: D/C ordered at same time as one gram of magnesium IV over one hour Will la1 dc after completion. Vital Signs: 15:23 BP 153 / 92; Pulse 87; Resp 18; Temp 98.3; Pulse Ox 98% ; Weight 99.79 kg; Height 5 ft. sv 3 in. (160.02 cm); Pain 10/10; 17:47 BP 112 / 65; Pulse 74; Resp 16; Temp 97.1; Pulse Ox 100% on R/A; la1 15:23 Body Mass Index 38.97 (99.79 kg, 160.02 cm) sv ED Course: 15:19 Patient arrived in ED. as 15:19 Zev Jean Baptiste MD is Private Physician. as 15:22 Triage completed. sv 15:23 Arm band placed on. sv 15:29 Alex Fink, RN is Primary Nurse. la1 15:37 Patient has correct armband on for positive identification. la1 15:53 Giovanni Poon MD is Attending Physician. vicente 16:19 X-ray completed. Portable x-ray completed in exam room. Patient tolerated procedure kw well. 16:20 XRAY Chest (1 view) In Process Unspecified. EDMS 16:53 Zev Jean Baptiste MD is Referral Physician. vicente 16:53 Nick Lee MD is Referral Physician. vicente 17:16 EKG done, by ED staff, reviewed by Giovanni Poon MD. 5 17:17 Warm blanket given. cardiac monitor technician on. Pulse ox on. NIBP on. mh5 17:49 No provider procedures requiring assistance completed. IV discontinued, intact, la1 bleeding controlled, No redness/swelling at site. Pressure dressing applied. Administered Medications: 16:50 Drug: NS 0.9% 1000 ml Route: IV; Rate: 1 bolus; Site: right antecubital; la1 17:35 Follow up: IV Status: Completed infusion la1 17:48 Follow up: IV Status: Completed infusion la1 17:06 Drug: Magnesium Sulfate 1 grams Route: IVPB; Infused Over: 1 hrs; Site: right la1 antecubital; 17:35 Follow up: IV Status: Completed infusion la1 17:48 Follow up: IV Status: Completed infusion la1 17:07 Drug: Magnesium Oxide 400 mg Route: PO; la1 17:36 Follow up: Response: No adverse reaction la1 17:48 Follow up: Response: No adverse reaction la1 17:07 Drug: Potassium Effervescent Tablet 25 mEq Route: PO; la1 17:36 Follow up: Response: No adverse reaction la1 17:48 Follow up: Response: No adverse reaction la1 Outcome: 16:54 Discharge ordered by MD. zhang 17:49 Discharged to home ambulatory. la1 17:49 Condition: stable 17:49 Discharge instructions given to patient, Instructed on discharge instructions, follow up and referral plans. Demonstrated understanding of instructions, follow-up care. 17:50 Patient left the ED. la1 Signatures: Dispatcher [employer] Lorenza Walton RN RN sv Anderson, Corey, MD MD cha Martinez, Amelia as Whitley, Kimberlee kw Attema, Lee, RN RN la1 Martinez, Maria [facility]
--- NOTE | 2019-01-17 16:56 | EDPHYS ---
Physician Documentation [facility] [place], [place] Name: Melody Dominguez Age: 43 yrs Sex: Female : 1975 Arrival Date: 01/17/2019 Time: 15:19 Bed 19 Private MD: Zev Jean Baptiste ED Physician Giovanni Poon HPI: 01/17 16:05 This 43 yrs old Female presents to ER via Ambulatory with complaints of vicente Dizziness, Edema, Fatigue. 16:05 The patient presents with dizziness. Onset: The symptoms/episode began/occurred just vicente prior to arrival, this morning. 16:06 The patient presents with pain, swelling. The complaints affect the right arm, left vicente arm, right leg and left leg. Modifying factors: The symptoms are alleviated by nothing. the symptoms are aggravated by nothing. Associated signs and symptoms: Pertinent positives: weakness. Historical: - Allergies: 15:23 NKA; sv - PMHx: 15:23 Anemia; Diabetes - NIDDM; Hypertension; Vitamin B12 Deficiency; sv - PSHx: 15:23 Cholecystectomy; Gastric Bypass; laparoscopy reversal of gastric sleeve; sv - Immunization history:: Adult Immunizations up to date. - Social history:: Smoking status: Patient/guardian denies using tobacco. - Ebola Screening: : No symptoms or risks identified at this time. - Family history:: not pertinent. ROS: 16:06 Constitutional: Negative for fever, chills, and weight loss, Eyes: Negative for injury, vicente pain, redness, and discharge, ENT: Negative for injury, pain, and discharge, Neck: Negative for injury, pain, and swelling, Cardiovascular: Negative for chest pain, palpitations, and edema, Respiratory: Negative for shortness of breath, cough, wheezing, and pleuritic chest pain, Abdomen/GI: Negative for abdominal pain, nausea, vomiting, diarrhea, and constipation, Back: Negative for injury and pain, : Negative for injury, bleeding, discharge, and swelling, Skin: Negative for injury, rash, and discoloration, Psych: Negative for depression, anxiety, suicide ideation, homicidal ideation, and hallucinations, Allergy/Immunology: Negative for hives, rash, and allergies, Endocrine: Negative for neck swelling, polydipsia, polyuria, polyphagia, and marked weight changes, Hematologic/Lymphatic: Negative for swollen nodes, abnormal bleeding, and unusual bruising. 16:06 MS/extremity: Positive for swelling. Exam: 16:06 Constitutional: This is a well developed, well nourished patient who is awake, alert, vicente and in no acute distress. Head/Face: Normocephalic, atraumatic. Eyes: Pupils equal round and reactive to light, extra-ocular motions intact. Lids and lashes normal. Conjunctiva and sclera are non-icteric and not injected. Cornea within normal limits. Periorbital areas with no swelling, redness, or edema. ENT: Nares patent. No nasal discharge, no septal abnormalities noted. Tympanic membranes are normal and external auditory canals are clear. Oropharynx with no redness, swelling, or masses, exudates, or evidence of obstruction, uvula midline. Mucous membranes moist. Neck: Trachea midline, no thyromegaly or masses palpated, and no cervical lymphadenopathy. Supple, full range of motion without nuchal rigidity, or vertebral point tenderness. No Meningismus. Chest/axilla: Normal chest wall appearance and motion. Nontender with no deformity. No lesions are appreciated. Cardiovascular: Regular rate and rhythm with a normal S1 and S2. No gallops, murmurs, or rubs. Normal PMI, no JVD. No pulse deficits. Respiratory: Lungs have equal breath sounds bilaterally, clear to auscultation and percussion. No rales, rhonchi or wheezes noted. No increased work of breathing, no retractions or nasal flaring. Abdomen/GI: Soft, non-tender, with normal bowel sounds. No distension or tympany. No guarding or rebound. No evidence of tenderness throughout. Back: No spinal tenderness. No costovertebral tenderness. Full range of motion. Female : Normal external genitalia. Skin: Warm, dry with normal turgor. Normal color with no rashes, no lesions, and no evidence of cellulitis. MS/ Extremity: Pulses equal, no cyanosis. Neurovascular intact. Full, normal range of motion. Neuro: Awake and alert, GCS 15, oriented to person, place, time, and situation. Cranial nerves II-XII grossly intact. Motor strength 5/5 in all extremities. Sensory grossly intact. Cerebellar exam normal. Normal gait. Psych: Awake, alert, with orientation to person, place and time. Behavior, mood, and affect are within normal limits. 16:06 Respiratory: the patient does not display signs of respiratory distress, Respirations: normal, Breath sounds: are clear throughout. 16:06 Musculoskeletal/extremity: DVT Exam: No signs of deep vein thrombosis. no pain, no swelling, no tenderness, negative Homans' sign noted on exam, no appreciated bluish discoloration, no erythema, no increased warmth. Vital Signs: 15:23 BP 153 / 92; Pulse 87; Resp 18; Temp 98.3; Pulse Ox 98% ; Weight 99.79 kg; Height 5 ft. sv 3 in. (160.02 cm); Pain 10/10; 17:47 BP 112 / 65; Pulse 74; Resp 16; Temp 97.1; Pulse Ox 100% on R/A; la1 15:23 Body Mass Index 38.97 (99.79 kg, 160.02 cm) sv MDM: 15:55 Patient medically screened. [facility] 16:07 Data reviewed: vital signs, nurses notes, lab test result(s), EKG, radiologic studies, vicente plain films. 01/17 15:54 Order name: Basic Metabolic Panel; Complete Time: 16:52 [facility] 01/17 15:54 Order name: CBC with Diff; Complete Time: 16:52 [facility] 01/17 15:54 Order name: LFT's; Complete Time: 16:52 [facility] 01/17 15:54 Order name: Magnesium; Complete Time: 16:52 [facility] 01/17 15:54 Order name: NT PRO-BNP; Complete Time: 16:52 [facility] 01/17 15:54 Order name: PT-INR; Complete Time: 16:52 [facility] 01/17 15:54 Order name: Troponin (emerg Dept Use Only); Complete Time: 16:52 [facility] 01/17 15:54 Order name: XRAY Chest (1 view) [facility] 01/17 15:54 Order name: Lipase; Complete Time: 16:52 [facility] 01/17 15:54 Order name: Urine Culture [facility] 01/17 16:13 Order name: Urine Dipstick--Ancillary (enter results); Complete Time: 16:52 sd 01/17 16:13 Order name: Urine --Ancillary (enter results); Complete Time: 16:52 sd 01/17 15:54 Order name: EKG; Complete Time: 15:55 [facility] 01/17 15:54 Order name: Cardiac monitoring; Complete Time: 16:42 [facility] 01/17 15:54 Order name: EKG - Nurse/Tech; Complete Time: 16:42 [facility] 01/17 15:54 Order name: IV Saline Lock; Complete Time: 16:15 [facility] 01/17 15:54 Order name: Labs collected and sent; Complete Time: 16:15 [facility] 01/17 15:54 Order name: O2 Per Protocol; Complete Time: 16:15 [facility] 01/17 15:54 Order name: O2 Sat Monitoring; Complete Time: 16:15 [facility] 01/17 15:54 Order name: Urine Dipstick-Ancillary (obtain specimen); Complete Time: 16:12 [facility] Administered Medications: 16:50 Drug: NS 0.9% 1000 ml Route: IV; Rate: 1 bolus; Site: right antecubital; la1 17:35 Follow up: IV Status: Completed infusion la1 17:48 Follow up: IV Status: Completed infusion la1 17:06 Drug: Magnesium Sulfate 1 grams Route: IVPB; Infused Over: 1 hrs; Site: right la1 antecubital; 17:35 Follow up: IV Status: Completed infusion la1 17:48 Follow up: IV Status: Completed infusion la1 17:07 Drug: Magnesium Oxide 400 mg Route: PO; la1 17:36 Follow up: Response: No adverse reaction la1 17:48 Follow up: Response: No adverse reaction la1 17:07 Drug: Potassium Effervescent Tablet 25 mEq Route: PO; la1 17:36 Follow up: Response: No adverse reaction la1 17:48 Follow up: Response: No adverse reaction la1 Disposition: 01/17/19 16:54 Discharged to Home. Impression: Dizziness and giddiness, Essential (primary) hypertension, Type 2 diabetes mellitus, Hypokalemia, Hypomagnesemia. - Condition is Stable. - Discharge Instructions: Type 2 Diabetes Mellitus, Diagnosis, Adult, Dizziness, Hypertension, Hypomagnesemia, Hypertension, [id number], How to Take Your Blood Pressure, [id number], Aspirin and Your Heart, Type 2 Diabetes Mellitus, Diagnosis, Adult, [id number], Dizziness, Hgzk-de-Ivyi, Managing Your Hypertension. - Medication Reconciliation Form, Thank You Letter, Antibiotic Education, Prescription Opioid Use form. - Follow up: Zev Jean Baptiste MD; When: 2 - 3 days; Reason: Recheck today's complaints, Continuance of care, Re-evaluation by your physician. Follow up: Nick Lee MD; When: 2 - 3 days; Reason: Recheck today's complaints, Continuance of care, Re-evaluation by your physician. - Problem is new. - Symptoms have improved. Signatures: Dispatcher [employer] EDLorenza Mathew RN RN sv Anderson, Corey, MD MD cha Attema, Lee, RN RN la1 Corrections: (The following items were deleted from the chart) 17:50 16:54 01/17/2019 16:54 Discharged to Home. Impression: Dizziness and giddiness; la1 Essential (primary) hypertension; Type 2 diabetes mellitus; Hypokalemia; Hypomagnesemia. Condition is Stable. Forms are Medication Reconciliation Form, Thank You Letter, Antibiotic Education, Prescription Opioid Use. Follow up: Zev Jean Baptiste; When: 2 - 3 days; Reason: Recheck today's complaints, Continuance of care, Re-evaluation by your physician. Follow up: Nick Lee; When: 2 - 3 days; Reason: Recheck today's complaints, Continuance of care, Re-evaluation by your physician. Problem is new. Symptoms have improved. vicente
[2019-01-17] MEDS ORDERED: MAGNESIUM OXIDE 400 MG TAB ONE (17:02)
[2019-01-17] MEDS ORDERED: POTASSIUM 25 MEQ EFFERV TAB ONE (17:02)
[2019-01-17] MEDS ORDERED: MAGNESIUM SULFATE 1 gm IVPB 1 GM/100 ML BAG IV ONE (17:03)
--- NOTE | 2019-01-17 17:03 | RAD REPORT ---
EXAM DESCRIPTION: RAD - Chest Single View - 01/17/2019 4:20 pm CLINICAL HISTORY: Cough COMPARISON: None. TECHNIQUE: AP portable chest image was obtained 1616 hours . FINDINGS: Lung volumes are low. Lung chávez are clear. Heart and vasculature are normal. No measurab le pleural effusion and no pneumothorax. No acute bony abnormality seen. No acute aortic findings ismael pected. IMPRESSION: No acute cardiopulmonary process.
[2019-01-17 18:23] VITALS: BP 112/65; TEMP 97.1; O2SAT 100
--- NOTE | 2019-01-18 17:37 | EKG ---
Test Date: 2019-01-17 Test Time: 16:38:21 Commercial Attache: TRIP MEASUREMENT RESULTS: Intervals: Rate: 66 MT: 192 QRSD: 92 QT: 438 QTc: 459 Mobile: P: 11 MT: 192 QRS: 26 T: 34 INTERPRETIVE STATEMENTS: Normal sinus rhythm Incomplete right bundle branch block Cannot rule out Anterior infarct, age undetermined Abnormal ECG No previous ECG available for comparison Electronically Signed On 01-18-19 17:35:09 CDT by Nick Lee
== END 2019-01-17 17:50 | disposition home or self-care (01) ==
LOC: ER 15:17
DX: I10 Essential (primary) hypertension (principal); E11.9 Type 2 diabetes mellitus without complications; E87.6 Hypokalemia; E83.42 Hypomagnesemia
CPT/HCPCS: 96365; 93005; 87088; 85025; 87086; 80048; 36415; 83735; 81025; 85610; 80076; 81003; 84484; 83690; 83880; 71045; 99284; J3475; J7030

== ENCOUNTER 2019-03-28 08:16 | Emergency (ER) | payer BC ==
--- OUTSIDE RECORDS SUMMARY | 2019-03-28 08:19 | XMS REPORT ---
:1975 [facility] [address] [place] [address] Dr. Dave [address] [place] [id number] Care Team Providers Name Role Phone Unavailable Unavailable Unavailable Problems This patient has no known problems. Allergies, Adverse Reactions, Alerts This patient has no known allergies or adverse reactions. Medications This patient has no known medications.
[2019-03-28 09:18] LABS: Urine Blood NEGATIVE (NEG); Urine Glucose NEGATIVE (NEG); Urine Protein NEGATIVE (NEG); Urine pH 7.5 (5.0-7.0)
[2019-03-28 09:18] LABS: Absolute Lymphocytes (CBC) 1.5 K/uL (0.7-4.9); Basophils % 1.4 % (0-1.3); Hematocrit 33.3 % (36.0-45.0); Lymphocytes % 29.3 % (15.3-44.8); MPV 9.1 fL (7.6-11.3); RBC Red Blood Cell Count 4.16 M/uL (3.86-4.86)
[2019-03-28 09:36] LABS: ALT/SGPT 27 U/L (12-78); AST/SGOT 24 U/L (15-37); Albumin 3.3 g/dL (3.4-5.0); Alkaline Phosphatase 62 U/L (45-117); BUN Blood Urea Nitrogen 10 mg/dL (7-18); Bicarbonate 28 mmol/L (21-32); Bilirubin Direct < 0.1 mg/dL (0-0.2); Bilirubin Total 0.3 mg/dL (0.2-1.0); Glucose Level 110 mg/dL (74-106); Lipase 95 U/L (73-393); Potassium 3.7 mmol/L (3.5-5.1); Protein, Total 6.8 g/dL (6.4-8.2); Sodium Level 140 mmol/L (136-145)
[2019-03-28 09:46] LABS: Urine Bacteria 20-50 /HPF (<20); Urine Culture Reflex Order REFLEXED; Urine Mucus SLIGHT /HPF (NONE SEEN); Urine RBC <5 /HPF (NONE SEEN)
--- NOTE | 2019-03-28 10:10 | RAD REPORT ---
EXAM DESCRIPTION: CTAbdomen Pelvis W Contrast - 03/28/2019 9:59 am CLINICAL HISTORY: Abdominal pain. abd distension;Abd pain COMPARISON: No comparisons TECHNIQUE: Biphasic CT imaging of the abdomen and pelvis was performed with 100 ml non-ionic IV cont rast. All CT scans are performed using dose optimization technique as appropriate and may include automated exposure control or mA/KV adjustment according to patient size. FINDINGS: The lung bases are clear.Cholecystectomy clips. Postsurgical changes are seen about the st omach with mild distention of the distal esophagus. The liver, spleen, pancreas, adrenal glands and kidneys are within normal limits. No bowel obstruction, free air, free fluid or abscess. The appendix is normal. No evidence of signi ficant lymphadenopathy. No suspicious bony findings. IMPRESSION: No acute intra-abdominal or pelvic finding.
--- NOTE | 2019-03-28 10:44 | ER ---
Nurse's Notes [facility] Name: Melody Dominguez Age: 44 yrs Sex: Female : 1975 Arrival Date: 03/28/2019 Time: 08:20 Bed 18 Private MD: Zev Jean Baptiste Diagnosis: Unspecified abdominal pain Presentation: 03/28 08:34 Presenting complaint: Patient states: hx of gastric sleeve, stomach has been distended iw X 1 week , felt heaviness down in pelvic region last night, started having more pain today, appt with GI because esophagus feels inflamed, Dr. Fulton. Transition of care: patient was not received from another setting of care. Onset of symptoms was March 21, 2019. Risk Assessment: Do you want to hurt yourself or someone else? Patient reports no desire to harm self or others. Initial Sepsis Screen: Does the patient meet any 2 criteria? No. Patient's initial sepsis screen is negative. Does the patient have a suspected source of infection? No. Patient's initial sepsis screen is negative. Care prior to arrival: None. 08:34 Method Of Arrival: Ambulatory iw 08:34 Acuity: ALMA 3 iw Triage Assessment: 09:00 General: Appears in no apparent distress. comfortable, obese, Behavior is cooperative, bp appropriate for age, anxious. Pain: Complains of pain in suprapubic area, right lower quadrant and left lower quadrant. EENT: No deficits noted. Neuro: No deficits noted. Cardiovascular: No deficits noted. Respiratory: No deficits noted. GI: Reports lower abdominal pain, bloating. : No signs and/or symptoms were reported regarding the genitourinary system. Derm: No deficits noted. Musculoskeletal: No deficits noted. 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 - Ebola Screening: : Patient negative for fever greater than or equal to 101.5 degrees Fahrenheit, and additional compatible Ebola Virus Disease symptoms Patient denies exposure to infectious person Patient denies travel to an Ebola-affected area in the 21 days before illness onset No symptoms or risks identified at this time. - Family history:: not pertinent. - Social history:: Smoking status: Patient/guardian denies using tobacco. - Hospitalizations: : No recent hospitalization is reported. Screenin:00 Abuse screen: Denies threats or abuse. Denies injuries from another. Nutritional bp screening: No deficits noted. Tuberculosis screening: No symptoms or risk factors identified. Fall Risk None identified. Assessment: 09:00 General: SEE TRIAGE NOTE. bp 09:00 GI: Bowel sounds present X 4 quads. Abd is soft X 4 quads. bp 10:10 Reassessment: PT RETURNED FROM CT. bp 10:59 Reassessment: PT D/C HOME AMBULATORY, DX WITH UNSPECIFIED ABDOMINAL PAIN. bp Vital Signs: 08:37 BP 183 / 110; Pulse 85; Resp 16; Temp 98.2; Pulse Ox 98% on R/A; Weight 99.79 kg; iw Height 5 ft. 3 in. (160.02 cm); Pain 9/10; 10:10 BP 162 / 103; Pulse 73; Resp 16; Pulse Ox 99% ; bp 11:00 BP 163 / 98; Pulse 67; Resp 16; Temp 98; Pulse Ox 97% ; bp 08:37 Body Mass Index 38.97 (99.79 kg, 160.02 cm) ED Course: 08:20 Patient arrived in ED. ag5 08:21 Zev Jean Baptiste MD is Private Physician. ag5 08:36 Triage completed. iw 08:37 Arm band placed on. iw 08:49 Yefri Correa MD is Attending Physician. rn 08:51 Zev Broussard, JORDY is Primary Nurse. bp 08:56 Radiology exam delayed due to lab results not completed at this time. (BUN/Creatinine). md1 08:57 Urine collected: clean catch specimen, clear, Amount Voided: 20mL. ms 09:00 Patient has correct armband on for positive identification. Bed in low position. Call bp light in reach. Side rails up X2. 09:13 Inserted saline lock: 20 gauge in right antecubital area, using aseptic technique. bp Blood collected. 09:54 CT completed. Patient tolerated procedure well. Patient moved to CT via wheelchair. sw 10:00 CT Abd/Pelvis - IV Contrast Only In Process Unspecified. EDMS 11:00 No provider procedures requiring assistance completed. IV discontinued, intact, bp bleeding controlled, No redness/swelling at site. Pressure dressing applied. Administered Medications: No medications were administered Outcome: : Discharge ordered by . rn 11:00 Discharged to home ambulatory. bp 11:00 Condition: stable 11:00 Discharge instructions given to patient, Instructed on discharge instructions, follow up and referral plans. Demonstrated understanding of instructions, follow-up care. 11:02 Patient left the ED. bp Signatures: Dispatcher [employer] EDRI Sahara Zhong RN Lucy Posada ms Yefri Correa MD MD rn Warren, Shannon sw Peltier, Brian, RN RN Charlie Camarillo ag5 Lala Salguero md1
--- NOTE | 2019-03-28 10:44 | EDPHYS ---
Physician Documentation [facility] Name: Melody Dominguez Age: 44 yrs Sex: Female : 1975 Arrival Date: 03/28/2019 Time: 08:20 Bed 18 Private MD: Zev Jean Baptiste ED Physician Yefri Correa HPI: 03/28 10:04 This 44 yrs old Female presents to ER via Ambulatory with complaints of rn Abdominal Problem. 10:04 The patient presents with abdominal distention. Onset: The symptoms/episode rn began/occurred 1 month(s) ago. The symptoms do not radiate. Associated signs and symptoms: Pertinent negatives: nausea and vomiting, anorexia, blood in stools, chest pain, constipation, diarrhea, dysuria, fever, hematuria, vaginal discharge, vomiting, vomiting blood. The symptoms are described as dull. Modifying factors: The symptoms are alleviated by nothing, the symptoms are aggravated by nothing. Severity of pain: At its worst the pain was mild in the emergency department the pain is unchanged. The patient has not experienced similar symptoms in the past. The patient has not recently seen a physician. Reports atleast a month of abd discomfort and feeling like is bloated, no vomiting/diarrhea/constipation. Having normal bowel movements. Reports gastric sleeve 2 years ago and never followed up. Reports weight gain. . 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 - Ebola Screening: : Patient negative for fever greater than or equal to 101.5 degrees Fahrenheit, and additional compatible Ebola Virus Disease symptoms Patient denies exposure to infectious person Patient denies travel to an Ebola-affected area in the 21 days before illness onset No symptoms or risks identified at this time. - Family history:: not pertinent. - Social history:: Smoking status: Patient/guardian denies using tobacco. - Hospitalizations: : No recent hospitalization is reported. ROS: 10:04 Constitutional: Negative for fever, chills, and weight loss, Eyes: Negative for injury, rn pain, redness, and discharge, Neck: Negative for injury, pain, and swelling, Cardiovascular: Negative for chest pain, palpitations, and edema, Respiratory: Negative for shortness of breath, cough, wheezing, and pleuritic chest pain, Abdomen/GI: Negative for nausea, vomiting, diarrhea, and constipation, MS/Extremity: Negative for injury and deformity, Skin: Negative for injury, rash, and discoloration, Neuro: Negative for headache, weakness, numbness, tingling, and seizure. Exam: 10:04 Constitutional: This is a well developed, well nourished patient who is awake, alert, rn and in no acute distress. Head/Face: Normocephalic, atraumatic. ENT: MMM Cardiovascular: Regular rate and rhythm. No pulse deficits. Respiratory: No increased work of breathing, no retractions or nasal flaring. Abdomen/GI: soft, non-tender, non-distended, no fluid wave MS/ Extremity: Pulses equal, no cyanosis. Neurovascular intact. Full, normal range of motion. Equal circumference. Neuro: Awake and alert, GCS 15, oriented to person, place, time, and situation. Cranial nerves II-XII grossly intact. Motor strength 5/5 in all extremities. Sensory grossly intact. Vital Signs: 08:37 BP 183 / 110; Pulse 85; Resp 16; Temp 98.2; Pulse Ox 98% on R/A; Weight 99.79 kg; iw Height 5 ft. 3 in. (160.02 cm); Pain 9/10; 10:10 BP 162 / 103; Pulse 73; Resp 16; Pulse Ox 99% ; bp 11:00 BP 163 / 98; Pulse 67; Resp 16; Temp 98; Pulse Ox 97% ; bp 08:37 Body Mass Index 38.97 (99.79 kg, 160.02 cm) iw MDM: 08:49 Patient medically screened. rn 10:42 Differential diagnosis: bowel obstruction, diverticulitis, gastritis, gastroesophageal rn reflux disease, non-specific abd pain, pancreatitis, Peptic Ulcer Disease, Ureterolithiasis, urinary tract infection. Data reviewed: vital signs, nurses notes, lab test result(s), radiologic studies, CT scan, and as a result, I will discharge patient. Counseling: I had a detailed discussion with the patient and/or guardian regarding: the historical points, exam findings, and any diagnostic results supporting the discharge/admit diagnosis, lab results, radiology results, the need for outpatient follow up, to return to the emergency department if symptoms worsen or persist or if there are any questions or concerns that arise at home. Special discussion: I discussed with the patient/guardian in detail that at this point there is no indication for admission to the hospital. It is understood, however, that if the symptoms persist or worsen the patient needs to return immediately for re-evaluation. Based on the history and exam findings, there is no indication for further emergent testing or inpatient evaluation. I discussed with the patient/guardian the need to see the secret code expert for further evaluation of the symptoms. I discussed with the patient/guardian the need to see the primary care provider for further evaluation of the symptoms. ED course: No acute findings on bloodwork or ct abdomen, has appt with GI for scope. Recommend f/u with pcp as well in addition to her gastric surgeon. . 03/28 08:58 Order name: Basic Metabolic Panel; Complete Time: 09:47 rn 03/28 08:58 Order name: CBC with Diff; Complete Time: 09:47 rn 03/28 08:58 Order name: Creatinine for Radiology; Complete Time: 09:47 rn 03/28 08:58 Order name: Hepatic Function; Complete Time: 09:47 rn 03/28 08:58 Order name: Lipase; Complete Time: 09:47 rn 03/28 08:58 Order name: Urine Microscopic Only; Complete Time: 09:47 rn 03/28 08:58 Order name: IV Saline Lock; Complete Time: : rn 03/28 08:58 Order name: Labs collected and sent; Complete Time: : rn 03/28 08:58 Order name: CT Abd/Pelvis - IV Contrast Only; Complete Time: 10:23 rn 03/28 08:58 Order name: Urine Test (obtain specimen); Complete Time: : rn 03/28 08:58 Order name: Urine Dipstick-Ancillary (obtain specimen); Complete Time: 09: rn 03/28 09:02 Order name: Urine Dipstick--Ancillary (enter results); Complete Time: 09:47 bd 03/28 09:02 Order name: Urine --Ancillary (enter results); Complete Time: 09:47 bd 03/28 09:51 Order name: Urine Culture EDMS Administered Medications: No medications were administered Disposition: 03/28/19 10:43 Discharged to Home. Impression: Unspecified abdominal pain. - Condition is Stable. - Discharge Instructions: Abdominal Pain, Adult. - Medication Reconciliation Form, Thank You Letter, Antibiotic Education, Prescription Opioid Use, Work release form form. - Follow up: Private Physician; When: As needed; Reason: Recheck today's complaints, Re-evaluation by your physician. - Problem is an ongoing problem. - Symptoms have improved. Signatures: Dispatcher [employer] EDMS Sahara Zhong RN Yefri Smith MD MD rn Peltier, Brian, RN RN bp Corrections: (The following items were deleted from the chart) 11:02 10:43 03/28/2019 10:43 Discharged to Home. Impression: Unspecified abdominal pain. bp Condition is Stable. Forms are Medication Reconciliation Form, Thank You Letter, Antibiotic Education, Prescription Opioid Use. Follow up: Private Physician; When: As needed; Reason: Recheck today's complaints, Re-evaluation by your physician. Problem is an ongoing problem. Symptoms have improved. rn
[2019-03-28 11:12] VITALS: BP 163/98; TEMP 98; O2SAT 97
== END 2019-03-28 11:02 | disposition home or self-care (01) ==
LOC: ER 08:16
DX: R10.9 Unspecified abdominal pain (principal); I10 Essential (primary) hypertension
CPT/HCPCS: 36415; 74177; 80048; 80076; 81003; 81015; 81025; 83690; 85025; 87077; 87086; 87088; 87186; 99284

== ENCOUNTER 2020-01-27 10:35 | Emergency (ER) | payer BC, SELFPAY ==
--- OUTSIDE RECORDS SUMMARY | 2020-01-27 10:50 | XMS REPORT | Continuity of Care Document ---
:1975 Author Organization [facility] t Address [address] [place] [address] Care Team Providers Name Role Phone Carmita SPENCE, Arely Boyd Attending Clinician Unavailable Problems This patient has no known problems. Allergies, Adverse Reactions, Alerts This patient has no known allergies or adverse reactions. Medications This patient has no known medications. Procedures This patient has no known procedures. Encounters Start End Encounter Admission Attending Care Care Encounter Source Date/Time Date/Time Type Type Clinicians Facility Department ID 2019-11-26 2019-11-26 Nurse Arely Vizcarra [id number] 00:00:00 00:00:00 Triage [facility] [id number] [facility] [id number] Results This patient has no known results.
--- OUTSIDE RECORDS SUMMARY | 2020-01-27 10:50 | XMS REPORT | Summary of Care ---
:1975 Author Organization [facility] Address [address] [place] [id number] Care Team Providers Name Role Phone Zev Jean Baptiste Colt Primary Care Provider Ernie York MD Unavailable Unavailable 2, Lab Unavailable Unavailable Reason for Visit Reason Comments Information Encounter Details Date Type Department Care Team Description 11/26/2019 Nurse Triage [facility] Arely Vizcarra RN Information [address] [place] [phone] [place] [address] Allergies No Known Allergiesdocumented as of this encounter (statuses as of 11/26/2019) Medications Medication Sig Dispensed Refills Start Date End Date Status levoFLOXacin 500 mg tablet 0 08/08/2016 Active ondansetron 4 mg tablet 0 08/24/2016 Active tamsulosin 0.4 mg 24 hr 0 08/08/2016 Active capsule lisinopril 10 mg tablet Take 10 mg by 0 Active mouth daily. naproxen 500 mg Take 1 tablet 30 tablet 0 08/26/2016 Active tabletIndications: Pain by mouth 2 pelvic (two) times daily with meals. losartan 50 mg tablet Take 50 mg by 0 Active mouth daily. acetaminophen-codeine Take 1 tablet 10 tablet 0 06/12/2018 Active (TYLENOL-CODEINE #3) by mouth every 300-30 mg 4 (four) hours tabletIndications: Dysuria as needed for Pain (scale 4-6). hydroCHLOROthiazide 12.5 TAKE 1 TABLET 1 10/25/2018 Active mg tablet BY MOUTH EVERY DAY. PATIENT DUE FOR LABS AND OFFICE VISIT BEFORE NEXT REFILL. ertugliflozin (STEGLATRO) Take by 0 Active 5 mg Tab mouth. losartan-hydrochlorothiazi Take 1 tablet 0 Active de 50-12.5 mg per tablet by mouth daily. Cholecalciferol, Vitamin Take by 0 Active D3, (VITAMIN D3) 5,000 mouth. unit tablet ferrous sulfate (IRON Take by 0 Active ORAL) mouth. cyanocobalamin/salcaprozat Take by 0 Active sod (ELIGEN B12 ORAL) mouth. cyanocobalamin, vitamin Inject as 0 Active B-12, (DIRECTOR PROCESS IMPROVEMENT-B12 INJECTION) directed. vitamin B complex (B Take by 0 Active COMPLEX 1 ORAL) mouth. metroNIDAZOLE 500 mg Take 1 tablet 14 tablet 0 11/22/2018 Active tabletIndications: BV by mouth every (bacterial vaginosis) 12 (twelve) hours. documented as of this encounter (statuses as of 11/26/2019) Active Problems Problem Noted Date Morbid obesity with body mass index of 40.0-49.9 11/09 Obesity (BMI 30-39.9) 10/30/2016 Seroma of breast 09/23/2016 Chronic midline low back pain without sciatica 017 Dysplasia of cervix, high grade ROMANA 2 09/18/2016 Absence of menstruation 09/18/2016 History of laparoscopic cholecystectomy 08/26/2016 History of removal of laparoscopic gastric banding dev ice 08/26/2016 Pain pelvic 08/26/2016 Mammogram abnormal 08/26/2016 Estrogen increased 08/26/2016 Right ovarian cyst 08/26/2016 Postcoital bleeding 08/26/2016 Dyspareunia in female 08/26/2016 Pelvic adhesive disease 08/26/2016 documented as of this encounter (statuses as of 11/26/2019) Social History Tobacco Use Types Packs/Day Years Used Date Never Smoker Smokeless Tobacco: Never Used Alcohol Use Drinks/Week oz/Week Comments Yes occasional Sex Assigned at Date Recorded Not on file Job Start Date Occupation Industry Not on file Not on file Not on file Travel History Travel Start Travel End No recent travel history available. documented as of this encounter Last Filed Vital Signs Not on filedocumented in this encounter Plan of Treatment Health Maintenance Due Date Last Done Comments DTaP,Tdap,and Td Vaccines (1 1985 - Tdap) Depression Screening 1986 Breast Cancer Screening 09/11/2017 09/11/2016 (MAMMOGRAM) INFLUENZA VACCINE (#1) 2020 PAP SMEAR 11/09/2021 11/09/2018, 12/13/2009 PNEUMOCOCCAL 0-64 YEARS Aged Out No longe r eligible based COMBINED SERIES on patient's age to complete this to [facility] documented as of this encounter Results Not on filedocumented in this encounter Insurance Payer Benefit Plan Subscriber ID Effective Dates Phone Address Type / Group [facility] [id number] 2014-[place] [phone] [address] [place] P[place] [id number] [place] [address] documented as of this encounter
--- NOTE | 2020-01-27 11:50 | RAD REPORT ---
EXAM DESCRIPTION: CT - Head Brain Wo Cont - 01/27/2020 11:43 am CLINICAL HISTORY: right sided weakness Headache, drowsiness COMPARISON: HEAD BRAIN W O CONTRAST dated 03/08/2012 TECHNIQUE: All CT scans are performed using dose optimization technique as appropriate and may inclu de automated exposure control or mA/KV adjustment according to patient size. FINDINGS: No intracranial hemorrhage, hydrocephalus or extra-axial fluid collection.No areas of brai n edema or evidence of midline shift. The paranasal sinuses and mastoids are clear. The calvarium is intact. IMPRESSION: No acute intracranial abnormality.
--- NOTE | 2020-01-27 12:22 | RAD REPORT ---
EXAM DESCRIPTION: RAD - Chest Single View - 01/27/2020 12:04 pm CLINICAL HISTORY: CONGESTION Chest pain. COMPARISON: Chest Single View dated 01/17/2019; ABDOMEN 1 VIEW KUB dated 10/02/2014 FINDINGS: Portable technique limits examination quality. The lungs are grossly clear. The heart is normal in size. No displaced fractures. IMPRESSION: No acute intrathoracic process suspected.
--- NOTE | 2020-01-27 12:34 | EDPHYS ---
Physician Documentation [facility] Name: Melody Dominguez Age: 44 yrs Sex: Female : 1975 Arrival Date: 01/27/2020 Time: 10:36 Bed 8 Private MD: ED Physician Delmer Mirza HPI: 01/26 11:16 This 44 yrs old Female presents to ER via Ambulatory with complaints of Covid ma2 + Shortness of Breath, Vision Issue, R side Weakness. 11:16 The patient has shortness of breath during heavy activity. Onset: The symptoms/episode ma2 began/occurred gradually, 4 week(s) ago. Associated signs and symptoms: Pertinent negatives: productive cough, dizziness, hemoptysis, nausea. Severity of symptoms: At their worst the symptoms were very mild in the emergency department the symptoms are unchanged have improved. The patient has not experienced similar symptoms in the past. diagnosed with covid on November that resolved,, patient states that she think that her right arm and leg are weakner than left, she states that she may have balance issue as well.. she never had this before has mild headache.. no similar issues before . Historical: - Allergies: 11:15 NKA; ss - PMHx: 11:15 Anemia; Diabetes - NIDDM; Hypertension; Vitamin B12 Deficiency; ss - PSHx: 11:15 Cholecystectomy; Gastric Bypass; laparoscopy reversal of gastric sleeve; ss - Immunization history:: Adult Immunizations up to date. - Social history:: Smoking status: Patient denies any tobacco usage or history of. Patient/guardian denies using alcohol, street drugs, The patient lives with family. - Family history:: not pertinent. ROS: 11:16 Constitutional: Negative for fever, chills, and weight loss. ma2 11:16 All other systems are negative. Exam: 11:16 Constitutional: This is a well developed, well nourished patient who is awake, alert, ma2 and in no acute distress. Head/Face: Normocephalic, atraumatic. Eyes: Pupils equal round and reactive to light, extra-ocular motions intact. Lids and lashes normal. Conjunctiva and sclera are non-icteric and not injected. Cornea within normal limits. Periorbital areas with no swelling, redness, or edema. ENT: Nares patent. No nasal discharge, no septal abnormalities noted. Tympanic membranes are normal and external auditory canals are clear. Oropharynx with no redness, swelling, or masses, exudates, or evidence of obstruction, uvula midline. Mucous membranes moist. Neck: Trachea midline, no thyromegaly or masses palpated, and no cervical lymphadenopathy. Supple, full range of motion without nuchal rigidity, or vertebral point tenderness. No Meningismus. Chest/axilla: Normal chest wall appearance and motion. Nontender with no deformity. No lesions are appreciated. Cardiovascular: Regular rate and rhythm with a normal S1 and S2. No gallops, murmurs, or rubs. Normal PMI, no JVD. No pulse deficits. Respiratory: Lungs have equal breath sounds bilaterally, clear to auscultation and percussion. No rales, rhonchi or wheezes noted. No increased work of breathing, no retractions or nasal flaring. Abdomen/GI: Soft, non-tender, with normal bowel sounds. No distension or tympany. No guarding or rebound. No evidence of tenderness throughout. Back: No spinal tenderness. No costovertebral tenderness. Full range of motion. Skin: Warm, dry with normal turgor. Normal color with no rashes, no lesions, and no evidence of cellulitis. MS/ Extremity: Pulses equal, no cyanosis. Neurovascular intact. Full, normal range of motion. Neuro: Awake and alert, GCS 15, oriented to person, place, time, and situation. Cranial nerves II-XII grossly intact. Motor strength 5/5 in all extremities. Sensory grossly intact. Cerebellar exam normal. Normal gait. Psych: Awake, alert, with orientation to person, place and time. Behavior, mood, and affect are within normal limits. Vital Signs: 10:40 Resp 18; Weight 104.33 kg; Height 5 ft. 3 in. (160.02 cm); Pain 0/10; ss 11:15 BP 128 / 75; Pulse 90; Resp 18; Pulse Ox 97% on R/A; em 10:40 Body Mass Index 40.74 (104.33 kg, 160.02 cm) ss MDM: 10:41 Patient medically screened. ma2 11:16 Differential diagnosis: Anxiety Reaction Psychogenic sob dd inlcudes pneumonia vs ma2 bronchitis, exam and vs wnl, other dd includes tia although this is unlikley she will need outpatient workup for tia as she is a low risk for tia. 12:28 Data reviewed: vital signs, nurses notes. Counseling: I had a detailed discussion with merna the patient and/or guardian regarding: the historical points, exam findings, and any diagnostic results supporting the discharge/admit diagnosis, the presence of at least one elevated blood pressure reading (>120/80) during this emergency department visit, the need for outpatient follow up. ED course: grossly intact exam and cxr and cth and vs, unlikely tia, however to be in the safe side i told her that this could be a tia and she will need outpatietn tia workup including lipid profile aechocardiography and carotids US +/- MRI brain. she will call dr. correa as tia workup in a low risk patient can be done as outpatient . 01/26 11:16 Order name: CT Head Brain wo Cont; Complete Time: 11:55 ok2 01/26 11:16 Order name: Chest Single View XRAY ok2 Administered Medications: No medications were administered Disposition: 01/27/20 12:33 Discharged to Home. Impression: Other transient cerebral ischemic attacks and related syndromes. - Condition is Stable. - Discharge Instructions: Transient Ischemic Attack, Bakv-ty-Gykg. - Prescriptions for Albuterol Sulfate 90 mcg/actuation - inhale 1-2 puff by INHALATION route every 4-6 hours; 1 Inhaler. - Medication Reconciliation Form, Thank You Letter, Antibiotic Education, Prescription Opioid Use form. - Follow up: Ezio Jung; When: Today; Reason: Continuance of care. Signatures: Dispatcher [employer] Rafael Tompkins RN RN em Smirch, Shelby, RN RN Delmer Mirza MD MD ma2 Corrections: (The following items were deleted from the chart) 12:51 12:33 01/27/2020 12:33 Discharged to Home. Impression: Other transient cerebral em ischemic attacks and related syndromes. Condition is Stable. Forms are Medication Reconciliation Form, Thank You Letter, Antibiotic Education, Prescription Opioid Use. Follow up: Ezio Jung; When: Today; Reason: Continuance of care. ma2
--- NOTE | 2020-01-27 12:34 | ER ---
Nurse's Notes [facility] Name: Melody Dominguez Age: 44 yrs Sex: Female : 1975 Arrival Date: 01/27/2020 Time: 10:36 Bed 8 Private MD: Diagnosis: Other transient cerebral ischemic attacks and related syndromes Presentation: 01/26 10:40 Chief complaint: Patient states: Tested positive in November for Covid. Pt reports all of ss her symptoms have since gone, but she notices when she works out, she is breathing harder than normal, and has a harder time focusing her vision. Pt states, "I don't know exactly when it started, but I noticed today when I was walking/working out that I was leaning to the right. When I got to my sister's house she had me lift some light weights and I noticed that I had to think harder to lift with my right side and it was a little weaker.". Coronavirus screen: Client denies travel out of the [place] in the last 14 days. sob on exertion. Ebola Screen: Patient denies exposure to infectious person. Patient denies travel to an Ebola-affected area in the 21 days before illness onset. Initial Sepsis Screen: Does the patient meet any 2 criteria? No. Patient's initial sepsis screen is negative. Does the patient have a suspected source of infection? No. Patient's initial sepsis screen is negative. Risk Assessment: Do you want to hurt yourself or someone else? Patient reports no desire to harm self or others. Onset of symptoms is unknown. 10:40 Method Of Arrival: Ambulatory ss 10:40 Acuity: ALMA 3 ss Historical: - Allergies: 11:15 NKA; ss - PMHx: 11:15 Anemia; Diabetes - NIDDM; Hypertension; Vitamin B12 Deficiency; ss - PSHx: 11:15 Cholecystectomy; Gastric Bypass; laparoscopy reversal of gastric sleeve; ss - Immunization history:: Adult Immunizations up to date. - Social history:: Smoking status: Patient denies any tobacco usage or history of. Patient/guardian denies using alcohol, street drugs, The patient lives with family. - Family history:: not pertinent. Screenin:15 Abuse screen: Denies threats or abuse. Nutritional screening: No deficits noted. em Tuberculosis screening: No symptoms or risk factors identified. Fall Risk None identified. Assessment: 11:15 General: Appears in no apparent distress. comfortable, Behavior is cooperative, em anxious. Pain: Denies pain. Neuro: Level of Consciousness is awake, alert, obeys commands, Oriented to person, place, time, situation, Appropriate for age Package Sorter are equal bilaterally Moves all extremities. Speech is normal, Facial symmetry appears normal, Pupils are PERRLA, Reports blurred vision dizziness. Cardiovascular: Capillary refill < 3 seconds Patient's skin is warm and dry. Respiratory: Airway is patent Respiratory effort is even, unlabored, Respiratory pattern is regular, symmetrical. GI: Patient currently denies nausea, vomiting. Derm: Skin is intact, is healthy with good turgor, Skin is pink, warm \\T\\ dry. Musculoskeletal: Capillary refill < 3 seconds, Range of motion: intact in all extremities. 12:30 Reassessment: Patient appears in no apparent distress at this time. Patient and/or em family updated on plan of care and expected duration. Pain level reassessed. Patient is alert, oriented x 3, equal unlabored respirations, skin warm/dry/pink. Patient states feeling better. Patient states symptoms have improved. Vital Signs: 10:40 Resp 18; Weight 104.33 kg; Height 5 ft. 3 in. (160.02 cm); Pain 0/10; ss 11:15 BP 128 / 75; Pulse 90; Resp 18; Pulse Ox 97% on R/A; em 10:40 Body Mass Index 40.74 (104.33 kg, 160.02 cm) ED Course: 10:36 Patient arrived in ED. ds1 10:41 Delmer Mirza MD is Attending Physician. ma2 10:41 Rafael Wilkerson, RN is Primary Nurse. em 11:15 Triage completed. ss 11:15 Arm band placed on right wrist. ss 11:15 Patient has correct armband on for positive identification. Placed in gown. Bed in low em position. Call light in reach. Side rails up X2. Pulse ox on. NIBP on. 11:43 CT Head Brain wo Cont In Process Unspecified. EDMS 12:05 Chest Single View XRAY In Process Unspecified. EDMS 12:33 Ezio Jung MD is Referral Physician. ma2 12:49 No provider procedures requiring assistance completed. Patient did not have IV access em during this emergency room visit. Administered Medications: No medications were administered Outcome: 12:33 Discharge ordered by . [email or web address] 12:49 Discharged to home ambulatory. em 12:49 Condition: improved 12:49 Discharge instructions given to patient, Instructed on discharge instructions, follow up and referral plans. medication usage, Demonstrated understanding of instructions, follow-up care, medications, Prescriptions given X 1. 12:51 Patient left the ED. em Signatures: Dispatcher [employer] EDRafael Coleman RN RN Ana Bravo ds1 Chel Neal RN RN Delmer Mirza MD MD ma2
[2020-01-27 13:00] VITALS: BP 128/75; O2SAT 97
== END 2020-01-27 12:51 | disposition home or self-care (01) ==
LOC: ER 10:35
DX: G45.8 Other transient cerebral ischemic attacks and related syndromes (principal); I10 Essential (primary) hypertension; Z86.19 Personal history of other infectious and parasitic diseases; Z98.84 Bariatric surgery status
CPT/HCPCS: 70450; 71045; 99283

== ENCOUNTER 2020-08-24 13:13 | Emergency (ER) | payer SELFPAY ==
--- OUTSIDE RECORDS SUMMARY | 2020-08-24 13:18 | XMS REPORT | Continuity of Care Document ---
:1975 Author Organization [facility] t Address [address] [place] [id number] Care Team Providers Name Role Phone Wilber Varghese DO Attending Clinician Mook METAL FENCE ERECTOR, R Attending Clinician ANSELMO Attending Clinician Unavailable Edelmira ALFARO Attending Clinician Rosalia ALFARO Attending Clinician Anselmo ALFARO Attending Clinician Cornelia SPENCE MSN, J Attending Clinician Unavailable Colt WARREN Attending Clinician Unavailable Colt Warren MD Attending Clinician EDELMIRA Admitting Clinician Unavailable Problems Condition Condition Condition Status Onset Resolution Last Treating Co mments Source Name Details Category Date Date Treatment Clinician Date Swelling Swelling Disease Active 2020- MD of left of left 2-22 Anderso upper limb upper limb 00:00: n 00 Pain in Pain in Disease Active 2020-0 MD left arm left arm 2-21 Kilo o 00:00: n 00 Acute Acute Disease Active 2020- MD headache headache 2-20 Kilo o 00:00: n 00 Abdominal Abdominal Disease Active 2020-0 MD pain pain 2-20 Anderso 00:00: n 00 Hypertensi Hypertensi Disease Active 2020-0 M D on on 07-07 Anderso 00:00: n 00 Allergies, Adverse Reactions, Alerts This patient has no known allergies or adverse reactions. Family History Family Member Diagnosis Comments Start Date Stop Date Source Natural father Parkinsonism Joe son Natural father Hypertension Joe son Natural mother Dementia MD Stuart cevallos Natural mother Diabetes MD Stuart cevallos Natural mother Kidney disease And valente Natural daughter Cancer Joe son Social History Social Habit Start Date Stop Date Quantity Comments Source Sex Assigned At MD Boateng on Tobacco use and 2020-07-07 2020-07-07 Never used MD Boateng on exposure 00:00:00 00:00:00 Alcohol intake 2020-07-07 2020-07-07 Current drinker of MD Poon 00:00:00 00:00:00 alcohol (finding) Alcohol Comment 2020-07-07 2020-07-07 occassional Joe barton 00:00:00 00:00:00 Smoking Status Start Date Stop Date Source Never smoker MD Poon Medications Ordered Filled Start Stop Current Ordering Indication Dosage Frequency Signature Comments Components Source Medication Medication Date Date Medication? Clinician (SIG) Name Name losartan-hy Yes Take by drochloroth 2-22 mouth Anderso iazide 16:47: daily. n (HYZAAR) 36 100-12.5 mg per tablet esomeprazol Yes 40mg Take 40 mg MD shepherd (NexIUM) 2-22 by mouth. Joel rso 40 MG 16:47: n capsule 36 cetirizine Yes Take by (ZyrTEC) 5 2-22 mouth. Anderso mg tablet 16:47: n 36 Vital Signs Vital Name Observation Time Observation Value Comments Source HEIGHT 2020-07-08 13:30:00 160 cm WEIGHT 2020-07-08 13:30:00 110.7 kg HEIGHT 2020-07-08 13:30:00 160 cm WEIGHT 2020-07-08 13:30:00 110.7 kg WEIGHT 2020-07-07 15:14:00 111.9 kg HEIGHT 2020-07-07 15:11:00 160 cm WEIGHT 2020-07-07 15:14:00 111.9 kg HEIGHT 2020-07-07 15:11:00 160 cm Systolic blood pressure 2020-07-09 16:12:00 122 mm[Hg] MD Poon Diastolic blood pressure 2020-07-09 16:12:00 77 mm[Hg] MD Poon Heart rate 2020-07-09 16:12:00 71 /min MD Joe barton Body temperature 2020-07-09 14:03:19 36.5 Shannan MD Veronika underwood Respiratory rate 2020-07-09 14:03:19 19 /min MD Veronika underwood Oxygen saturation in 2020-07-09 14:03:19 96 /min MD Poon Arterial blood by Pulse oximetry Body height 2020-07-08 19:30:00 160 cm MD Joe barton Body weight 2020-07-08 19:30:00 110.7 kg MD Joe barton BMI 2020-07-08 19:30:00 43.24 kg/m2 MD Joe barton Procedures Procedure Date / Time Performed Performing Clinician [facility] e US LEG VENOUS DOPPLER RIGHT 2020-07-08 19:42:48 Jaimie Avila MD PROTHROMBIN TIME 2020-07-08 16:31:00 Brent Hickey MD PARTIAL THROMBOPLASTIN TIME 2020-07-08 16:31:00 Brent Hickey MD MANUAL DIFFERENTIAL 2020-07-08 16:31:00 Brent Hickey MD COMPLETE BLOOD COUNT W/ 2020-07-08 16:31:00 Brent Hickey MD INDICES US ARM VENOUS DOPPLER LEFT 2020-07-08 16:16:57 Brent Hickey COMPLETE BLOOD COUNT W/ 2020-07-08 15:35:00 Brent Hickey MD DIFFERENTIAL COMPREHENSIVE METABOLIC PANEL 2020-07-08 15:35:00 Brent Hickey MD MAGNESIUM LEVEL 2020-07-08 15:35:00 Brent Hickey MD PHOSPHORUS LEVEL 2020-07-08 15:35:00 Brent Hickey MD Results CBC 2020-07-08 15:35:00 Brent Hickey MD GLUCOSE LEVEL 2020-07-08 15:35:00 Brent Hickey MD BLOOD UREA NITROGEN 2020-07-08 15:35:00 Brent Hickey MD ELECTROLYTE PANEL 2020-07-08 15:35:00 AlexayBrent lazo MD SERUM CREATININE 2020-07-08 15:35:00 AlexayBrent lazo MD .GLOMERULAR FILTRATION RATE 2020-07-08 15:35:00 Brent Hickey MD CALCIUM LEVEL TOTAL 2020-07-08 15:35:00 AlexayBrent lazo MD son ALBUMIN LEVEL 2020-07-08 15:35:00 ElsayBrent lazo MD ALKALINE PHOSPHATASE 2020-07-08 15:35:00 ElsayBrent lazo MD rson ALANINE AMINOTRANSFERASE 2020-07-08 15:35:00 ElsayBrent lazo MD ASPARTATE AMINOTRANSFERASE 2020-07-08 15:35:00 ElsayBrent lazo TOTAL PROTEIN 2020-07-08 15:35:00 AlexayBrent lazo MD FRACTIONATED BILIRUBIN 2020-07-08 15:35:[address] ABDOMEN PELVIS W CONTRAST 2020-07-08 00:46:15 Arpita Diaz MD XR CHEST 1 VW 2020-07-08 00:40:05 Brennen Diaz MD rszoey CT HEAD WO CONTRAST 2020-07-07 23:24:48 Brennen Diaz MD INFLUENZA A/B + COVID-19 2020-07-07 22:47:00 Luis Antonio Diaz MD ASYMPTOMATIC-L TOTAL PROTEIN 2020-07-07 22:24:00 Dutch, Lucy Boateng on FRACTIONATED BILIRUBIN 2020-07-07 22:24:00 Lucy Judd MD URINE CULTURE 2020-07-07 22:24:00 Dutch, Lucy Boateng on COMPLETE BLOOD COUNT W/ 2020-07-07 22:24:00 Dutch, Lucy Poon DIFFERENTIAL COMPREHENSIVE METABOLIC PANEL 2020-07-07 22:24:00 Dutch, Lucy Poon MAGNESIUM LEVEL 2020-07-07 22:24:00 Dutch, Lucy Boateng on PHOSPHORUS LEVEL 2020-07-07 22:24:00 Dutch, Lcuy Valeri MD Joe son URINALYSIS WITH MICROSCOPIC IF 2020-07-07 22:24:00 [facility], Lucy Poon INDICATED AMYLASE LEVEL 2020-07-07 22:24:00 Brennen Diaz MD Joel rson LIPASE LEVEL 2020-07-07 22:24:00 Brennen Diaz MD Joel rson C REACTIVE PROTEIN 2020-07-07 22:24:00 Brennen Diaz MD nderson Results CBC 2020-07-07 22:24:00 [facility], Lucy Boateng on MANUAL DIFFERENTIAL 2020-07-07 22:24:00 [facility], Lucy Cameron derson GLUCOSE LEVEL 2020-07-07 22:24:00 [facility], Lucy Boateng on BLOOD UREA NITROGEN 2020-07-07 22:24:00 [facility], Lucy Cameron derson ELECTROLYTE PANEL 2020-07-07 22:24:00 [facility], Lucy Trammell MD Joel rson SERUM CREATININE 2020-07-07 22:24:00 [facility], Lucy Trammell MD Joe son .GLOMERULAR FILTRATION RATE 2020-07-07 22:24:00 [facility], Lucy Poon CALCIUM LEVEL TOTAL 2020-07-07 22:24:00 [facility], Lucy nolan ALBUMIN LEVEL 2020-07-07 22:24:00 [facility], Lucy Boateng on ALKALINE PHOSPHATASE 2020-07-07 22:24:00 [facility], Lucy andinorszoey ALANINE AMINOTRANSFERASE 2020-07-07 22:24:00 [facility], Lucy Poon ASPARTATE AMINOTRANSFERASE 2020-07-07 22:24:00 [facility], Lucy Poon EKG, 12-LEAD (PORTABLE) 2020-07-07 00:00:00 Brennen Diaz MD Encounters Start End Encounter Admission Attending Care Care Encounter Source Date/Time Date/Time Type Type Clinicians Facility Department ID 2020-08-02 2020-08-02 Patient Abimael SDJAIME [id number] 00:00:00 00:00:00 [facility] [id number] [facility] [id number] PAVILLION [id number] 2020-08-01 2020-08-01 Office Mook [facility] [id number] 10:53:21 11:46:20 Visit Kunal Ana Luisa CLINIC BUSINESS MANAGER [id number] [facility] [id number] MATERNAL [id number] & CHILD 107 [facility] 2020-07-08 2020-07-09 Outpatient UR ANSELMO RAINA Emergency 002 [id number] 08:14:00 10:47:00 HEATHER cevallos 2020-07-07 2020-07-07 Emergency ER KELVIN RIANA Emergency [id number] 15:15:00 20:42:00 AVRIL cevallos Results Test Description Test Time Test Comments Results Result Comments Source Urine Culture 2020-07-10 22:12:54 Test Item Value Reference Range Interpretation Comme nts Final Report (test code = 8488) <10,000 cfu/ml Gram Negative Rods.. .10 A - 50,000 cfu/ml Normal site star present. Path Review - Urine (test code = 8483) The results have been review ed and A electronically signed by Pathologist:Lala Coon MD, PhD #[id number] Lab Interpretation (test code = 36541-8) Abnormal MD Penn Leg Venous Doppler [id number] 21:03:34 No deep venous thrombosis in the right lower extremity. I personally reviewed these image(s) alongwith the resident's/fellow's interpretations, certify that if a procedure was performed I was physically present, and agree with the final report.Interface, Radiology Results In - 07/08/2020 3:05 PM CSTFULL RESULT:Examination: US LEG VENOUS DOPPLER RIGHT, 07/08/2020 1:42 PMClinical History: 45-year-old female with a history of hypertension. No cancer history.Indication: Right lower extremity edema. Comparison: CT abdomen/pelvis 07/07/2020.Technique: Grayscale and color/spectral Doppler ultrasound ofthe right lower extremity veins was performed.Findings: In the right lower extremity, there is normal compressibility and spontaneous flow within the common femoral vein and its junction with the greater saphenous vein, femoral vein and its junction with the deep femoral vein, and popliteal vein. Visualized segments of the anterior and posterior tibial veins as well as of the peroneal vein are patent.IMPRESSION:No deep venous thrombosis in the right lower extremity.I personally reviewed these image(s) along with the resident's/fellow's interpretations, certify that if a procedure was performed I was physically present, and agree with the final report.MD Penn Arm Venous Doppler Left 2020-07-08 17:59:50 No deep venous thrombosis in the left upper extremity. I personally reviewed these image(s) along with the resident's/fellow's interpretations, certify that if a procedure was performed I was physically present, and agree with the final report.Interface, Radiology Results In - 07/08/2020 12:02 PM CSTFULL RESULT:Examination: US ARM VENOUS DOPPLER LEFT, 07/08/2020 10:16 AMClinical History: 45-year-old female with a history of hypertension. No cancer history.Indication: Left upper extremity swelling.Com parison: None available.Technique: Grayscale and color/spectral Doppler ultrasound of the left upperextremity veins was performed.Findings: Normal compressibility and spontaneous flow in the left internal jugular vein. Spontaneous flow in the proximal segment of the innominate vein and throughout theleft subclavian vein. Normal compressibility and spontaneous flow in the left axillary, brachial, basilic, and cephalic veins.IMPRESSION:No deep venous thrombosis in the left upper extremity.I personally reviewed these image(s) along with the resident's/fellow's interpretations, certify that if a procedure was performed I was physically present, and agree with the final report.MD PoonPartial Thromboplastin [id number] 17:48:46 Test Item Value Reference Range Interpretation Comments PTT (test code = 28.0 See_Comment [Automated message] The 5320) system which [employer] nerated this result transmit esperanza reference range : 24.2 - 36.0 second(s). The reference range was not used to interpr et this result as onelia l/abnormal. MD PoonProthrombin Time with [id number] 17:48:45 Test Item Value Reference Range Interpretation Comments PT (test code = 6746) 13.3 See_Comment [Auto mated message] The system which [employer] nerated this result transmit esperanza reference range : 12.0 - 14.3 second(s). The reference range was not used to interpr et this result as onelia l/abnormal. INR (test code = 1.04 0.90-1.10 5973) MD PoonComplete Blood Count w/o [id number] 17:24:45 Test Item Value Reference Range Interpretation Comments WBC (test code = 6.0 K/uL 4-11 6690-2) RBC (test code = 789-8) 4.52 See_Comment [Au tomated message] The system [employer] generated this result transmitted ref erence range: 4.00 - 5 .50 M/uL. The refer ence range was not u sed to interpret this result as normal/abnor mal. Hgb (test code = 718-7) 10.8 See_Comment L [Au tomated message] The system [employer] generated this result transmitted ref erence range: 12.0 - 1 6.0 gm/dL. The refe rence range was not u sed to interpret this result as normal/abnor mal. Hct (test code = 35.4 % 37-47 L 4544-3) MPV (test code = 787-2) 11.6 fL 4-10.4 H MCH (test code = 785-6) 23.9 pg 27-31 L MCHC (test code = 30.5 See_Comment L [Automate d message] 786-4) The system [employer] generated this result transmitted ref erence range: 31.0 - 3 6.0 gm/dL. The refe rence range was not u sed to interpret this result as normal/abnor mal. RDW-SD (test code = 44.9 fL 35.1-46.3 15189-2) RDW-CV (test code = 15.9 % 12-15.5 H 788-0) Platelet count (test 360 K/uL 140-440 code = 777-3) INRBC (test code = 0.0 % See_Comment The INRBC (instrument 5974) NRBC) value ref lects the enumeration of nucleated red b lood cells contained in a 200uL sampleof whole blood analyzed by the instrument. Thi s value maydiffer from the NRBC value repo rted in a manual differential,wh ich is based on a 100 cell differential. [Automated mess age] The system [employer] generated this result transmitted ref erence range: <=0.0. T he reference range was not used to int erpret this result as normal/abnormal . Lab Interpretation Abnormal (test code = 49501-2) MD PoonCorxenywEpxpbxqcoqnz3105-10-07 17:17:55 Test Item Value Reference Range Interpretation Comments Neutrophil % (test code = 63.0 % 42-66 85489-8) Lymphocyte % (test code = 26.2 % 24-44 737-7) Monocyte % (test code = 7.8 % 2-7 H 744-3) Eosinophil % (test code = 2.0 % 1-4 713-8) Basophil % (test code = 0.8 % 0-1 707-0) IGRE % (test code = 0.2 % 0-0.4 IGRE % c ount 42376-8) includes Metamyelocytes, Myelocytes, and Promyelocytes. Neutrophil Abs (test code 3.88 K/uL 1.7-7.3 = 753-4) Lymphocyte Abs (test code 1.61 K/uL 1-4.8 = 732-8) Monocyte Abs (test code = 0.48 K/uL 0.08-0.7 743-5) Eosinophil Abs (test code 0.12 K/uL 0.04-0.4 = 712-0) Basophil Abs (test code = 0.05 K/uL 0-0.1 705-4) IG Abs (test code = 0.01 K/uL 0-0.04 48773-0) Lab Interpretation (test Abnormal code = 82154-6) MD PoonFractionated [id number] 16:11:33 Test Item Value Reference Range Interpretation Comments Bili Total (test 0.3 mg/dL See_Comment Indocyanine Green (ICG) code = 5096) may cause false ly elevated biliru bin results. Total and direct bilirubin must not be measured from s amples containing indo cyanine green. False el evation of total bilirubin can be seen in patient s with IgG concentrations above 28 g/L. [Automate d message] The system [employer] generated this result transmitted ref erence range: <=1.2. T he reference range was not used to interpr et this result as normal/abnormal . Bili Direct (test <0.2 See_Comment Indocyanin e Green (ICG) code = 5094) may cause false ly elevated biliru bin results. Total and direct bilirubin must not be measured from s amples containing indo cyanine green. [Automat ed message] The sy stem which generated this result transmitted ref erence range: <=0.3 mg /dL. The reference range was not used to interpr et this result as normal/abnormal . Bili Indirect (test See Note 0-0.9 Unable t o calculate code = 5095) Indirect Biliru bin result due to some par ameters are outside rep ortable range MD PoonGlomerular Filtration [id number] 16:11:32 Test Item Value Reference Range Interpretation Comments eGFR-AA (test code 136 See_Comment Normal eG FR: >= 60 = 8062) mL/min/1.73 m2N ote: The eGFR is calculated u sing the CKD-EPI equatio n. The eGFR declines with a ge. eGFR <60 mL/min/1.73 m2 is considered as "decreased". This equation should only be used for patients 18 and older. According to e National Kidney [employer] on's Kidney Disease Outcome Quality Initiative (KDO QI) classification and 2012 Kidney Disease Improving Global Outcomes (KDIGO) Clinical Practi ce Guideline, the stage of CK D should be categorized bas ed on estimated GFR. Stage Description GFR mL/min/1.73 m21 Normal or high GFR >=902 Mildly decrease d GFR 60-893a M ildly to moderately decr eased GFR 45-593b Moderat mic to severely decrea sed GFR 30-444 Severely decreased GFR 15-295 Kid andre failure <15 [Automa esperanza message] The system [employer] generated this result tra nsmitted reference range : >=60 mL/min/1.73 sq. m. The reference range was not used to interpret is result as normal/abnormal . eGFR-CIERA (test code 118 See_Comment Normal e GFR: >= 60 = 8063) mL/min/1.73 m2N ote: The eGFR is calculated u sing the CKD-EPI equatio n. The eGFR declines with a ge. eGFR <60 mL/min/1.73 m2 is considered as "decreased". This equation should only be used for patients 18 and older. According to e National [employer] on's Kidney Disease Outcome Quality Initiative (KDO QI) classification and 2012 Kidney Disease Improving Global Outcomes (KDIGO) Clinical Practi ce Guideline, the stage of CK D should be categorized bas ed on estimated GFR. Stage Description GFR mL/min/1.73 m21 Normal or high GFR >=902 Mildly decrease d GFR 60-893a M ildly to moderately decr eased GFR 45-593b Moderat mic to severely decrea sed GFR 30-444 Severely decreased GFR 15-295 Kid andre failure <15 [Automa esperanza message] The system [employer] generated this result tra nsmitted reference range : >=60 mL/min/1.73 sq. m. The reference range was not used to interpret th is result as normal/abnormal . MD PoonTotal [id number] 16:11:31 Test Item Value Reference Range Interpretation Comments Total Protein (test code = 7649) 6.9 g/dL 6.4-8.3 MD PoonMagnesium [id number] 16:11:29 Test Item Value Reference Range Interpretation Comments Magnesium (test code = 6359) 1.7 mg/dL 1.6-2.6 MD PoonPhosphorus [id number] 16:11:28 Test Item Value Reference Range Interpretation Comments Phosphorus (test code = 6817) 3.2 mg/dL 2.5-4.5 MD PoonAlkaline [id number] 16:11:27 Test Item Value Reference Range Interpretation Comments Alk Phos (test code = 4768) 67 U/L 35-104 MD PonoCalcium [id number] 16:11:25 Test Item Value Reference Range Interpretation Comments Calcium Lvl (test code = 5258) 9.0 mg/dL 8.4-10.2 MD [id number] 16:11:24 Test Item Value Reference Range Interpretation Comments ALT (test code = 4705) 46 U/L See_Comment H [Aut omated message] The system [employer] generated this result transmitted ref erence range: <=33. Th e reference range was not used to int erpret this result as normal/abnormal . Lab Interpretation (test Abnormal code = 79440-0) MD PoonAlbumin [id number] 16:11:23 Test Item Value Reference Range Interpretation Comments Albumin Lvl (test code 3.5 See_Comment [Aut omated message] The = 7552) system which ge nerated this result tra nsmitted reference range : 3.5 - 5.2 gm/dL. The refe rence range was not used to interpret this result as normal/abnormal . MD Poon.Serum [id number] 16:11:22 Test Item Value Reference Range Interpretation Comments Creatinine (test code = 5399) 0.48 mg/dL 0.51-0.95 L Lab Interpretation (test code = Abnormal 87306-4) CleveAspartate [id number] 16:11:21 Test Item Value Reference Range Interpretation Comments AST (test code = 4731) 51 U/L See_Comment H Speci men is hemolyzed. Resu lts may be falsely elevated. Repea t test if needed. [Aut omated message] The sy stem which generated this result transmit esperanza reference range : <=32. The refer ence range was not u sed to interpret this result as normal/abnor mal. Lab Interpretation (test Abnormal code = 81276-5) MD [id number] 16:11:20 Test Item Value Reference Range Interpretation Comments BUN (test code = 5055) 12 mg/dL 6-23 MD PoonElectrolyte [id number] 16:11:19 Test Item Value Reference Range Interpretation Comments Sodium Lvl (test code = 135 See_Comment L [Au tomated message] 1856) The system [employer] generated this result transmitted ref erence range: 136 - 14 5 mEq/L. The refe rence range was not u sed to interpret this result as normal/abnor mal. Potassium Lvl (test code 4.0 See_Comment [A utomated message] = 8211) The system [employer] generated this result transmitted ref erence range: 3.5 - 5. 1 mEq/L. The refe rence range was not u sed to interpret this result as normal/abnor mal. Chloride (test code = 101 See_Comment [Auto mated message] 7775) The system [employer] generated this result transmitted ref erence range: 98 - 107 mEq/L. The refe rence range was not u sed to interpret this result as normal/abnor mal. CO2 (test code = 5227) 21 See_Comment L [Aut omated message] The system [employer] generated this result transmitted ref erence range: 22 - 29 mEq/L. The reference r billie was not used to interpret this result as normal/abnor mal. Anion Gap (test code = 13 See_Comment [Aut omated message] 9325) The system [employer] generated this result transmitted ref erence range: 4 - 14 m Eq/L. The reference r billie was not used to interpret this result as normal/abnor mal. Lab Interpretation (test Abnormal code = 08703-3) MD PoonGlucose [id number] 16:11:18 Test Item Value Reference Range Interpretation Comments Glucose Level (test code 126 mg/dL 70-99 H Eff ective 12/12/15, = 5699) the glucose reference inter vals have been updat ed based on [place] an Diabetes Associ ation guidelines (Standards of Medical Care in Diabetes 2016. Diabetes Care 2 016; 39: S13-S22).Fa sting blood glucose:Normal: 70 99 mg/dLImpaire d fasting glucose (increased risk for diabetes or pre-diabetes): 100 125 mg/dLDiabet es mellitus: >/=1 26 mg/dL Random bl ood glucose:Normal: 70 199 mg/dLNote: Random glucose >100 mg/dL is associ ated with increased risk for diabetes Lab Interpretation (test Abnormal code = 23587-9) MD Poon.[id number] 15:58:44 Test Item Value Reference Range Interpretation Comments WBC (test code = See Note 4-11 A Clotted roselyn ple. Notified 6690-2) Ligi/RN at 07/08 9:54:34 AM POCKETBOOK MAKER, to recollect RBC (test code = See Note See_Comment A Clotted roselyn ple. Notified 789-8) Ligi/RN at 07/08 9:54:34 AM POCKETBOOK MAKER, to recollectCorrec esperanza from 4.63 M/uL on 9:58:44 POCKETBOOK MAKER by Sushila Isaacs. [Aut omated message] The sy stem which generated this result transmit esperanza reference range : 4.00 - 5.50 M/uL. The reference range was not u sed to interpret this result as normal/abnormal . Hgb (test code = See Note See_Comment A Clotted roselyn ple. Notified 718-7) Ligi/RN at 07/08 9:54:34 AM POCKETBOOK MAKER, to recollectCorrec esperanza from 11.2 gm/dL [LOW ] on 07/08/20 9:58:4 4 P[employer]ET[employer]OOK MAKER by Soo Isaacs. [Automated mess age] The system which ge nerated this result tra nsmitted reference range : 12.0 - 16.0 gm/dL. The reference range was not used to interpr et this result as normal/abnormal . Hct (test code = See Note 37-47 A Clotted roselyn ple. Notified 4544-3) Ligi/RN at 07/08 9:54:34 AM POCKETBOOK MAKER, to recollectCorrec esperanza from 35.5 % [LOW] on 07/08/20 9:58:44 POCKETBOOK MAKER by Sushila Isaacs. MPV (test code = See Note 4-10.4 A Clotted roselyn ple. Notified 787-2) Ligi/RN at 07/08 9:54:34 AM POCKET[employer]OOK MAKER, to recollect MCH (test code = See Note 27-31 A Clotted roselyn ple. Notified 785-6) Ligi/RN at 07/08 9:54:34 AM POCKETBOOK MAKER, to recollectCorrec esperanza from 24.2 pg [LOW] o n 07/08/20 9:58:4 4 P[employer]OOK MAKER by Soo Isaacs. MCHC (test code = See Note See_Comment A Clotted sa mple. Notified 786-4) Ligi/RN at 07/08 9:54:34 AM POCKETBOOK MAKER, to recollectCorrec esperanza from 31.5 gm/dL on 0 07/08/20 9:58:44 POCKETBOOK MAKER by Sushila Isaacs. [Aut omated message] The sy stem which generated this result transmit esperanza reference range : 31.0 - 36.0 gm/dL. The reference range was not used to interpr et this result as normal/abnormal . RDW-SD (test code = See Note 35.1-46.3 A Clotted sample. Notified 30303-3) Ikeri/RN at 07/08 9:54:34 AM POCKETBOOK MAKER, to recollectCorrec esperanza from 43.3 fL on 06/19 06/07 9:58:44 POCKETBOOK MAKER by Sushila Isaacs. RDW-CV (test code = See Note 12-15.5 A Clotted sample. Notified 788-0) kIeri/RN at 07/08 9:54:34 AM POCKETBOOK MAKER, to recollectCorrec esperanza from 15.7 % [HI] on 07/08/20 9:58:44 POCKETBOOK MAKER by Sushila Isaacs. Platelet count (test See Note 140-440 A Clotted sample. Notified code = 777-3) Ikeri/RN at 06/19 9:54:34 AM POCKETBOOK MAKER, to recollect Lab Interpretation Abnormal (test code = 04732-1) MD PoonCT Abdomen Pelvis with [id number] 03:12:031. No acute abdominal abnormality, specifically no CT evidence for pancreatitis.2. Left physiologic ovarian cysts. I personally reviewed these image(s) along with the resident's/fellow's interpretations, certify that if a procedure was performed I was physically present, and agree with the finalreport.Interface, Radiology Results In - 07/07/2020 9:14 PM CSTFULL RESULT:Examination: CT ABDOMEN PELVIS W CONTRAST, 07/07/2020 6:46 PMClinical History: A 45-year-old female patient with no cancer history. Hypertension.Indication: RUQ pain and epigastric pain, radiating to the back; suspicious for pancreatitisComparison: NoneTechnique: CT of the abdomen and pelvis was performed with intravenous contr ast. Findings:LOWER THORAX: No areas of consolidation present. There is a tiny subpleural nodule in the right lower lobe on series 10 image 12 and tiny left lower lobe and right middle lobe lung nodules on images 3 and 26, likely infectious or inflammatory in etiology. Visualized portions of the heartand pericardium are unremarkable.LIVER: Diffuse hepatic steatosis limits evaluation of the liver with no suspicious liver lesions identified. GALLBLADDER AND BILIARY TREE: Status post cholecystectomy.PANCREAS: The pancreas demonstrates normal enhancement without focal lesion or peripancreatic fat stranding. No pancreatic ductal dilatation. No acute peripancreatic fluid collections.SPLEEN: No splenomegaly. No focal splenic lesion seen.ADRENALS: No adrenal nodules are seen.GASTROINTESTINAL TRACT: Postsurgical changes in the distal esophagus and stomach. No bowel obstruction. The appendix is normal. KIDNEYS/URETERS/BLADDER: Both Kidneys appear normal with no enhancing lesions. Punctate left lower pole renal stone on series 10 image 84. There is no hydronephrosis. The urinary bladder show no mass lesions. PERITONEUM/MESENTERY: No free air or free fluid seen.UTERUS AND OVARIES: There are 3.6 x 3.1 cmand 1.6 cm physiologic cysts in the left ovary. A rounded indeterminate hyperdense focus is seen along the posterior vagina on image 184 which may represent an inspissated complex cyst.LYMPH NODES: There is no evidence of abnormally enlarged retroperitoneal, mesenteric or pelvic adenopathy.BONES: There is no evidence of osteoblastic or osteolytic bony lesions. There are mild degenerative changes of the spine. There is mild retrolisthesis of L5 on S1 vertebra.SOFT TISSUES: No acute abnormality of thesoft tissues.IMPRESSION:1. No acute abdominal abnormality, specifically no CT evidence for pancreatitis.2. Left physiologic ovarian cysts.I personally reviewed these image(s) along with the resident's/fellow's interpretations, certify that if a procedure was performed I was physically present, and agree with the final report.MD PoonX-ray Chest 1 [id number] 01:21:45Intact chest with exception being mild enlarged cardiac silhouette but no consolidations, lobar pneumonia or findings of congestive failure.. Interface, Radiology Results In - 07/07/2020 7:23 PM CSTFULL RESULT:Examination: XR CHEST 1 VW, 07/07/2020 6:40 PMClinical History: HypertensionIndication: Abnormal physical findings, COVID-19 Not SuspectedComparison: NoneTechnique: Anteroposterior radiograph of the chest.Findings:The lungs are clear with low volume inspiration. There is no pleural effusion or pneumothorax. There is no mediastinal or hilar adenopathy. Cardiac silhouette is prominent but no pu lmonary findings of congestive failure or pulmonary venous hypertension.. IMPRESSION:Intact chest with exception being mild enlarged cardiac silhouette but no consolidations, lobar pneumonia or findings of congestive failure..MD PoonCT Head without [id number] 00:03:34 1. No evidence of hemorrhage or any other acute intracranial abnormality on CT. Occasional jacket changer errors may have occurred due to the inherent limitations of voice recognition software, and incorrect words/phrases may have been missed during proofreading. Please interpret using context where substitutions have occurred. Interface, Radiology Results In - 07/07/2020 6:05 PM CSTFULL RESULT :Examination: CT HEAD WO CONTRAST on 07/07/2020 5:24 PMClinical History: HypertensionIndication: HeadacheComparison: NoneTechnique: CT of the head was performed in the axial plane without contrast as per departmental protocol.Findings: There is no evidence of extra-axial fluid collection, parenchymal hemorrhage, midline shift, mass effect, or a large acute territorial infarction. The ventricles, sulciand cisterns are age appropriate in size and configuration.The orbits, calvarium and overlying soft tissues do not reveal any focal lesions. Trace mucosal thickening is noted within the left maxillary s inus without any fluid level.IMPRESSION:1. No evidence of hemorrhage or any other acute intracranialabnormality on CT.Occasional jacket changer errors may have occurred due to the inherent limitations of voice recognition software, and incorrect words/phrases may have been missed during proofreading. Please interpret using context where substitutions have occurred.MD PoonInfluenza A/B + COVID-19 Asymptomatic- [id number] 23:31:26 Test Item Value Reference Range Interpretation Comments Influenza A (test Not Detected Not Detected code = 20392-5) Influenza B (test Not Detected Not Detected code = 58735-9) COVID19 Not Detected Not Detected (SARS-CoV-2) (test code = 74579-9) COVID19 SARS Inpatient Indication (test Admission code = 12165) Inf AB+Cov19 See Note The rene SARS- CoV-2 Comment (test & Influenza A/ B code = 51762) nucleic acid t est for use on the jennifer s [employer] System is a mul [employer] real-time RT-PC R assay intended for the simultaneou s, qualitative det ection and differentia l of SARS-CoV-2 (COVID-19), inf luenza A, and influenz a B viral RNA in nasopharyngeal swabs in transport me ariane from patients suspected of dowell ving a respiratory inf ection with one of the se viruses or poss ibly exposure to COV ID-19 by a healthcare provider. Resul ts must be interpr eted within the cont ext of all relevant cl inical and laboratory findings and sh ould not form the so le basis for a ariane gnosis or treatment decision. A fac t sheet for patie nts provided by the java developer consultant ([employer]) can be rev iewed at: https://www.fda .gov/m edia/463713/oksana nloadA fact sheet for Health Care providers is provided by the java developer consultant ([employer]) and can be reviewed at: https://www.fda .gov/m edia/688302/oksana nload Influenza A and Influenza B neg ative results should be considered presumptive in samples that dowell ve a positive SARS-C oV-2 result. If co-infection wi th influenza A or influenza B vir us is suspected in sa mples with a positive SARS-CoV-2 resu lts, the sample shou ld be re-tested with another approve d influenza test. This assay has been authorized by t FDA for use only un abhishek Emergency Use Authorization ( EUA) in laboratories that have been CLIA-certified to perform moderate-comple xity and high-comple xity tests. The Micro[facility] Laboratory at [facility], CLIA Accreditation #[id number] and CAP Accreditation #[id number], verif ied the performance characteristics of this assay. Int ernal controls are us ed to monitor all sta ges of the test proces s. MD [id number] 23:08:03 Test Item Value Reference Range Interpretation Comments CRP (test code = 5.96 mg/L Reference r palmira for HS CRP 5235) assay are as fo llows: Reference range s when used to assess cardi ac risk: <1.00 mg/L Low cardiovascular risk 1.00-3.00 mg/L Average cardiovascular risk >3.00 mg/L High cardi ovascular risk.Reference ranges when used to assess inflammatory responses: Les s than or equal to 10.00 mg/L. MD [id number] 23:05:14 Test Item Value Reference Range Interpretation Comments Lipase Lvl (test code = 6165) 24 U/L 13-60 MD [id number] 23:05:13 Test Item Value Reference Range Interpretation Comments Amylase Lvl (test code = 4806) 52 U/L 28-100 MD PoonUrinalysis w/Microscopic if [id number] 22:59:11 Test Item Value Reference Range Interpretation Comments UA Color (test code Yellow Yellow = 7877) UA Appear (test code Clear Clear = 7868) UA Glucose (test NEG NEG mg/dL code = 7881) UA Bili (test code = NEG NEG 7871) UA Ketones (test NEG NEG mg/dL code = 7884) UA Spec Grav (test 1.021 1.002-1.035 code = 7894) UA Blood (test code NEG NEG = 7872) UA pH (test code = 6.0 4.5-8.0 7909) UA Protein (test NEG NEG mg/dL code = 7890) UA Urobilinogen NEG NEG (test code = 7903) UA Nitrite (test NEG NEG code = 7888) UA Leuk Est (test NEG NEG code = 7886) UA Comment (test See Comment No microsco pic exam code = 8512) performed, physiochemical findings are lesley Poon
[2020-08-24 15:23] LABS: Basophils % 0.2 % (0-1.3); Hematocrit 32.4 % (36.0-45.0); Lymphocytes % 27.8 % (15.3-44.8); MPV 9.1 fL (7.6-11.3); RBC Red Blood Cell Count 4.32 M/uL (3.86-4.86)
[2020-08-24 15:38] LABS: ALT/SGPT 58 U/L (12-78); AST/SGOT 28 U/L (15-37); Albumin 3.3 g/dL (3.4-5.0); Alkaline Phosphatase 79 U/L (45-117); BUN Blood Urea Nitrogen 9 mg/dL (7-18); Bicarbonate 27 mmol/L (21-32); Bilirubin Direct < 0.1 mg/dL (0-0.2); Bilirubin Total 0.2 mg/dL (0.2-1.0); Glucose Level 111 mg/dL (74-106); Lipase 115 U/L (73-393); Potassium 3.8 mmol/L (3.5-5.1); Protein, Total 7.2 g/dL (6.4-8.2); Sodium Level 140 mmol/L (136-145)
--- NOTE | 2020-08-24 16:09 | RAD REPORT ---
EXAM DESCRIPTION: CTAbdomen Pelvis W Contrast - 08/24/2020 3:55 pm CLINICAL HISTORY: Abdominal pain. EPIGASTRIC PAIN COMPARISON: Abdomen Pelvis W Contrast dated 03/28/2019 TECHNIQUE: Biphasic CT imaging of the abdomen and pelvis was performed with 100 ml non-ionic IV cont rast. All CT scans are performed using dose optimization technique as appropriate and may include automated exposure control or mA/KV adjustment according to patient size. FINDINGS: The lung bases are clear.Small hiatal hernia. Surgical changes about the stomach noted. Ch olecystectomy clips. The liver demonstrates diffuse fatty infiltration. The spleen, pancreas, adrenal glands and kidneys a re within normal limits. No bowel obstruction, free air, free fluid or abscess. The appendix is normal. No evidence of signi ficant lymphadenopathy. 42 mm left ovarian cyst/ follicle. No suspicious bony findings. IMPRESSION: Mild diffuse fatty liver. 42 mm left ovarian cyst/ follicle.
--- NOTE | 2020-08-24 16:24 | ER ---
Nurse's Notes [facility] Name: Melody Dominguez Age: 45 yrs Sex: Female : 1975 Arrival Date: 08/24/2020 Time: 13:17 Bed 17 Private MD: Diagnosis: Epigastric abdominal tenderness Presentation: 08/24 13:42 Chief complaint: Patient states: "I had a gastric sleeve years ago, but for the past ss 1.5 weeks, when I eat or drink anything I feel like I just want to pass out. I get this pain right here (pointing to epigastric area), then I just feel like i'm going to pass out. I've been under a lot of stress lately and gained 45 lbs.". Coronavirus screen: Client denies travel out of the [place] in the last 14 days. Ebola Screen: Patient denies exposure to infectious person. Patient denies travel to an Ebola-affected area in the 21 days before illness onset. Initial Sepsis Screen: Does the patient meet any 2 criteria? No. Patient's initial sepsis screen is negative. Does the patient have a suspected source of infection? No. Patient's initial sepsis screen is negative. Risk Assessment: Do you want to hurt yourself or someone else? Patient reports no desire to harm self or others. Onset of symptoms was August 14, 2020. 13:42 Method Of Arrival: Ambulatory ss 13:42 Acuity: ALMA 3 ss Triage Assessment: 17:44 General: Appears in no apparent distress. Behavior is calm, cooperative, appropriate bw for age. TOEING STOCKINGS: 17:44 LMP N/A - Irregular menses bw Historical: - Allergies: 13:44 NKA; ss - PMHx: 13:44 Anemia; Diabetes - NIDDM; Hypertension; Vitamin B12 Deficiency; ss - PSHx: 13:44 Cholecystectomy; Gastric Bypass; gastric sleeve revision; ss - Immunization history:: Adult Immunizations up to date. - Social history:: Smoking status: Patient denies any tobacco usage or history of. Screenin:04 Abuse screen: Denies threats or abuse. Nutritional screening: No deficits noted. bw Tuberculosis screening: No symptoms or risk factors identified. Assessment: 16:04 Pain: Complains of pain in abdomen. Neuro: No deficits noted. Cardiovascular: No bw deficits noted. Respiratory: No deficits noted. GI: Reports lower abdominal pain, upper abdominal pain, bloating, nausea. : No deficits noted. EENT: No deficits noted. Derm: No deficits noted. 17:44 Reassessment: Patient appears in no apparent distress at this time. Patient and/or bw family updated on plan of care and expected duration. Pain level reassessed. Patient is alert, oriented x 3, equal unlabored respirations, skin warm/dry/pink. Vital Signs: 13:42 BP 166 / 102; Pulse 69; Resp 16; Temp 98.4(O); Pulse Ox 99% on R/A; Weight 112.49 kg; ss Height 5 ft. 3 in. (160.02 cm); Pain 0/10; 16:04 BP 160 / 98; Pulse 67; Resp 18; Pulse Ox 99% on R/A; bw 13:42 Body Mass Index 43.93 (112.49 kg, 160.02 cm) ED Course: 13:17 Patient arrived in ED. mr 13:44 Triage completed. ss 13:44 Arm band placed on left wrist. ss 14:51 Giovanni Godoy PA is PHCP. cp 14:51 Giovanni Poon MD is Attending Physician. cp 15:14 Inserted saline lock: 20 gauge in right antecubital area, using aseptic technique. mt Blood collected. 15:55 CT Abd/Pelvis - IV Contrast Only In Process Unspecified. EDMS 16:03 Betsy Saunders, RN is Primary Nurse. bw 16:04 Patient has correct armband on for positive identification. Call light in reach. Side bw rails up X 1. Pulse ox on. NIBP on. Warm blanket given. 16:04 No provider procedures requiring assistance completed. bw 16:23 Andrea Sherwood MD is Referral Physician. cp 17:44 IV discontinued. bw Administered Medications: 16:36 Drug: NS 0.9% 500 ml Route: IV; Rate: bolus; Site: right antecubital; bw 16:36 Drug: ProTONIX 40 mg Route: IVP; Site: right antecubital; bw 16:36 Drug: Zofran (Ondansetron) 4 mg Route: IVP; Site: right antecubital; Outcome: 16:23 Discharge ordered by . cp 17:44 Discharged to home ambulatory. bw 17:44 Condition: stable 17:44 Discharge instructions given to patient, Prescriptions given X 1. 17:51 Patient left the ED. bw Signatures: Dispatcher [employer] RHINA ScruggsChiara Shelby, RN RN Giovanni Forte PA PA cp Thompson, Moriah mt Webb, Bethany, RN RN bw
--- NOTE | 2020-08-24 16:24 | EDPHYS ---
Physician Documentation [facility] Name: Melody Dominguez Age: 45 yrs Sex: Female : 1975 Arrival Date: 08/24/2020 Time: 13:17 Bed 17 Private MD: MATEO Physician Giovanni Poon HPI: 08/24 15:05 This 45 yrs old Female presents to ER via Ambulatory with complaints of Feels cp Like fainting. 15:05 The patient presents with abdominal pain in the epigastric area. cp 15:05 Onset: The symptoms/episode began/occurred 1.5 week(s) ago. cp 15:05 The symptoms do not radiate. Associated signs and symptoms: Pertinent negatives: chest cp pain, constipation, diarrhea, vomiting. Patient c/o dizziness, epigastric discomfort and feeling like food gets stuck over past 1.5 weeks. Patient reports history of gastric sleeve surgery years ago. 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 - Social history:: Smoking status: Patient denies any tobacco usage or history of. ROS: 15:10 Constitutional: Negative for body aches, chills, fever, poor PO intake. cp 15:10 Eyes: Negative for injury, pain, redness, and discharge. cp 15:10 ENT: Negative for ear pain, sore throat, difficulty swallowing, difficulty handling secretions. 15:10 Cardiovascular: Negative for chest pain. 15:10 Respiratory: Negative for cough, shortness of breath, wheezing. 15:10 Abdomen/GI: Positive for abdominal pain, of the epigastric area, Negative for vomiting, diarrhea, constipation. 15:10 Neuro: Positive for dizziness, Negative for altered mental status, syncope, weakness. 15:10 All other systems are negative. Exam: 15:15 Constitutional: The patient appears in no acute distress, alert, awake, cp non-diaphoretic, non-toxic, well developed, well nourished, obese. 15:15 Head/Face: Normocephalic, atraumatic. cp 15:15 Eyes: Periorbital structures: appear normal, Conjunctiva: normal, no exudate, no injection, Sclera: no appreciated abnormality, Lids and lashes: appear normal, bilaterally. 15:15 ENT: External ear(s): are unremarkable, Nose: is normal, Posterior pharynx: Airway: no evidence of obstruction, patent. 15:15 Chest/axilla: Inspection: normal, Palpation: is normal, no crepitus, no tenderness. 15:15 Cardiovascular: Rate: normal, Rhythm: regular, Edema: is not appreciated, JVD: is not appreciated. 15:15 Respiratory: the patient does not display signs of respiratory distress, Respirations: normal, no use of accessory muscles, no retractions, labored breathing, is not present, Breath sounds: are clear throughout, no decreased breath sounds, no stridor, no wheezing. 15:15 Abdomen/GI: Inspection: abdomen appears normal, Bowel sounds: active, all quadrants, Palpation: soft, in all quadrants, mild abdominal tenderness, in the epigastric area, rebound tenderness, is not appreciated, voluntary guarding, is not appreciated, involuntary guarding, is not appreciated. 15:15 Back: pain, is absent, ROM is normal. 15:15 Neuro: Orientation: to person, place \T\ time. Mentation: is normal, Motor: moves all fours, strength is normal. Vital Signs: 13:42 BP 166 / 102; Pulse 69; Resp 16; Temp 98.4(O); Pulse Ox 99% on R/A; Weight 112.49 kg; ss Height 5 ft. 3 in. (160.02 cm); Pain 0/10; 16:04 BP 160 / 98; Pulse 67; Resp 18; Pulse Ox 99% on R/A; bw 13:42 Body Mass Index 43.93 (112.49 kg, 160.02 cm) ss MDM: 14:57 Patient medically screened. cp 16:20 Data reviewed: vital signs, nurses notes, lab test result(s), radiologic studies, CT cp scan, and as a result, I will discharge patient. 16:20 Differential diagnosis: gastritis, pancreatitis, Peptic Ulcer Disease, Perf. Duodenal cp Ulcer, Perf. Gastric Ulcer. 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 08/24 14:59 Order name: Basic Metabolic Panel; Complete Time: 15:42 cp 08/24 15:42 Interpretation: Normal except: CL 108; GLUC 111. cp 08/24 14:59 Order name: CBC with Diff; Complete Time: 15:42 cp 08/24 15:42 Interpretation: Normal except: HGB 10.5; HCT 32.4; MCV 75.0; MCH 24.3; RDW 15.8. cp 08/24 14:59 Order name: Hepatic Function; Complete Time: 15:42 cp 08/24 15:42 Interpretation: Normal except: ALB 3.3; GLOB 3.9; A/G 0.8. cp 08/24 14:59 Order name: Lipase; Complete Time: 15:42 cp 08/24 14:59 Order name: CT Abd/Pelvis - IV Contrast Only; Complete Time: 16:15 cp 08/24 16:33 Order name: CREATININE WHOLE BLOOD EDMS 08/24 14:59 Order name: IV Saline Lock; Complete Time: 15:15 cp 08/24 14:59 Order name: Labs collected and sent; Complete Time: 15:15 cp Administered Medications: 16:36 Drug: NS 0.9% 500 ml Route: IV; Rate: bolus; Site: right antecubital; bw 16:36 Drug: ProTONIX 40 mg Route: IVP; Site: right antecubital; bw 16:36 Drug: Zofran (Ondansetron) 4 mg Route: IVP; Site: right antecubital; bw Disposition: 08/25 07:26 Co-signature as Attending Physician, Giovanni Poon MD I agree with the assessment and vicente plan of care. Disposition: 08/24/20 16:23 Discharged to Home. Impression: Epigastric abdominal tenderness. - Condition is Stable. - Discharge Instructions: Abdominal Pain, Adult, Hiatal Hernia. - Prescriptions for Protonix 40 mg Oral Tablet - take 1 tablet by ORAL route once daily; 30 tablet. - Medication Reconciliation Form, Thank You Letter, Antibiotic Education, Prescription Opioid Use form. - Follow up: Andrea Sherwood MD; When: 2 - 3 days; Reason: Recheck today's complaints. - Problem is new. - Symptoms have improved. Signatures: Dispatcher [employer] EDMS Giovanni Poon MD MD cha Smirch, Shelby, RN RN Giovanni Godoy PA PA cp Webb, Bethany, RN RN Corrections: (The following items were deleted from the chart) 08/24 17:51 16:23 08/24/2020 16:23 Discharged to Home. Impression: Epigastric abdominal tenderness. bw Condition is Stable. Forms are Medication Reconciliation Form, Thank You Letter, Antibiotic Education, Prescription Opioid Use. Follow up: Andrea Sherwood; When: 2 - 3 days; Reason: Recheck today's complaints. Problem is new. Symptoms have improved. cp
[2020-08-24] MEDS ORDERED: ONDANSETRON 4 MG/2 ML VIAL ONE (16:49)
[2020-08-24] MEDS ORDERED: PANTOPRAZOLE 40 MG INJ ONE (16:49)
[2020-08-24] MEDS ORDERED: NA CHLORIDE 0.9% 500 ML ONE (16:49)
[2020-08-24 19:15] VITALS: TEMP 98.4; O2SAT 99
[2020-08-24 19:17] VITALS: BP 160/98
== END 2020-08-24 17:51 | disposition home or self-care (01) ==
LOC: ER 13:13
DX: R10.816 Epigastric abdominal tenderness (principal); I10 Essential (primary) hypertension; Z98.84 Bariatric surgery status
CPT/HCPCS: 36415; 74177; 80048; 80076; 82565; 83690; 85025; 96374; 96375; 99284; C9113; J2405; J7040; Q9967

== ENCOUNTER 2020-09-26 21:01 | Emergency (ER) | payer SELFPAY ==
--- OUTSIDE RECORDS SUMMARY | 2020-09-26 21:05 | XMS REPORT | Continuity of Care Document ---
:1975 Author Organization [facility] t Address [address] [place] [address] Care Team Providers Name Role Phone Kalli Rivera MD Attending Clinician Doctor Unassigned, Name Attending Clinician Unavailable Easton Varghese DO Attending Clinician Mook AKHTAR, R Attending Clinician ANSELMO Attending Clinician Unavailable [...] Treatment Clinician Date Swelling Swelling Disease Active MD of left of left 2-22 Anderso upper limb upper limb 00:00: n 00 Pain in Pain in Disease Active left arm left arm 2-21 Kilo o 00:00: n 00 Acute Acute Disease Active headache headache 2-20 Kilo o 00:00: n 00 Abdominal Abdominal Disease Active pain pain 07-07 Anderso 00:00: n 00 Hypertensi Hypertensi Disease Active M D on on 07-07 Anderso 00:00: n 00 Allergies, Adverse Reactions, Alerts This patient has no known allergies or adverse reactions. Family History Family Member Diagnosis Comments Start Date Stop Date Source Natural father Parkinsonism Joe son Natural father Hypertension Joe son Natural mother Dementia MD Stuart cevallos Natural mother Diabetes MD Stuart cevallos Natural mother Kidney disease And noemion Natural daughter Cancer Joe son Social History Social Habit Start Date Stop Date Quantity Comments Source Sex Assigned At MD Boateng on Tobacco use and 2020-07-07 2020-07-07 Never used MD Boateng on exposure 00:00:00 00:00:00 Alcohol intake 2020-07-07 2020-07-07 Current drinker of MD Poon 00:00:00 00:00:00 alcohol (finding) Alcohol Comment 2020-07-07 2020-07-07 occassional MD Joe barton 00:00:00 00:00:00 Smoking Status Start [...] Procedure Date / Time Performed Performing Clinician [facility] e US LEG VENOUS DOPPLER RIGHT 2020-07-08 [...] Brent Hickey MD ELECTROLYTE PANEL 2020-07-08 15:35:00 Brent Hickey MD SERUM CREATININE 2020-07-08 15:35:00 Brent Hickey MD .GLOMERULAR FILTRATION RATE 2020-07-08 15:35:00 Brent Hickey MD CALCIUM LEVEL TOTAL 2020-07-08 15:35:00 Brent Hickey MD ALBUMIN LEVEL 2020-07-08 15:35:00 ElsayBrent lazo MD ALKALINE PHOSPHATASE 2020-07-08 15:35:00 ElsBrent taveras MD rson ALANINE AMINOTRANSFERASE 2020-07-08 15:35:00 ElsayBrnet lazo MD ASPARTATE AMINOTRANSFERASE 2020-07-08 15:35:00 Brent Hickey TOTAL PROTEIN 2020-07-08 15:35:00 Brent Hickey MD FRACTIONATED BILIRUBIN 2020-07-08 15:35:[address] ABDOMEN PELVIS W CONTRAST 2020-07-08 00:46:15 Arpita Diaz MD XR CHEST 1 VW 2020-07-08 00:40:05 Brennen Diaz MD Joel rs CT HEAD WO CONTRAST 2020-07-07 23:24:48 Brennen Diaz MD INFLUENZA A/B + COVID-19 2020-07-07 22:47:00 Luis Antonio Diaz MD ASYMPTOMATIC-L TOTAL PROTEIN 2020-07-07 22:24:00 Lucy Judd MD on FRACTIONATED BILIRUBIN 2020-07-07 22:24:00 Lucy Judd MD URINE CULTURE 2020-07-07 22:24:00 Lucy Judd MD on COMPLETE BLOOD COUNT W/ 2020-07-07 22:24:00 Lucy Judd DIFFERENTIAL COMPREHENSIVE METABOLIC PANEL 2020-07-07 22:24:00 Lucy Judd MD MAGNESIUM LEVEL 2020-07-07 22:24:00 Dutch, Lucy Boateng on PHOSPHORUS LEVEL 2020-07-07 22:24:00 [facility], Lucy Trammell MD Joe son URINALYSIS WITH MICROSCOPIC IF 2020-07-07 22:24:00 [facility], Lucy Poon INDICATED AMYLASE LEVEL 2020-07-07 22:24:00 Brennen Diaz MD Joel rson LIPASE LEVEL 2020-07-07 22:24:00 Brennen Diaz MD Joel rson C REACTIVE PROTEIN 2020-07-07 22:24:00 Brennen Diaz MD nderson Results CBC 2020-07-07 22:24:00 [facility], Lucy Boateng on MANUAL DIFFERENTIAL 2020-07-07 22:24:00 [facility], Lucy Cameron derson GLUCOSE LEVEL 2020-07-07 22:24:00 [facility], Lucy Boateng on BLOOD UREA NITROGEN 2020-07-07 22:24:00 [facility], Lucy Cameron derson ELECTROLYTE PANEL 2020-07-07 22:24:00 [facility], Lucy Trammell MD Joel rson SERUM CREATININE 2020-07-07 22:24:00 [facility], Lucy Trammell MD Joe son .GLOMERULAR FILTRATION RATE 2020-07-07 22:24:00 [facility], Lucy Poon CALCIUM LEVEL TOTAL 2020-07-07 22:24:00 [facility], Lucy weissson ALBUMIN LEVEL 2020-07-07 22:24:00 [facility], Lucy Boateng on ALKALINE PHOSPHATASE 2020-07-07 22:24:00 [facility], Lucy Banda nderson ALANINE AMINOTRANSFERASE 2020-07-07 22:24:00 [facility], Lucy Poon ASPARTATE AMINOTRANSFERASE 2020-07-07 22:24:00 [facility], Lucy Poon EKG, 12-LEAD (PORTABLE) 2020-07-07 00:00:00 Brennen Diaz MD Encounters Start End Encounter Admission Attending Care Care Encounter Source Date/Time Date/Time Type Type Clinicians Facility Department ID 2020-09-12 2020-09-12 [facility] [id number] 16:00:00 23:59:00 Encounter Kalli shepherd [id number] [place] [id number] [place] [id number] 2020-09-12 2020-09-12 Orders Doctor AMANUEL [id number] 00:00:00 00:00:00 Only Unassigned, KARINA [id number] [facility] [id number] 2020-08-02 2020-08-02 Patient Abimael [facility] [id number] 00:00:00 00:00:00 Outreach [facility] [id number] [facility] [id number] [id number] 2020-08-01 2020-08-01 Office Delvalle [facility] [id number] 10:53:21 11:46:20 Visit Kunal Orosco DISASTER RECOVERY ANALYST [id number] [facility] 4.2.7.2.686 MATERNAL [id number] & CHILD 107 [facility] 2020-07-08 2020-07-09 Outpatient UR RAINA BRIONES Emergency [id number] 08:14:00 10:47:00 HEATHER cevallos 2020-07-07 2020-07-07 Emergency ER RAINA WARREN Emergency [id number] 15:15:00 20:42:00 AVRIL cevallos Results Test Description [...] electronically signed by Pathologist:Lala Coon MD, PhD #[id number] Lab Interpretation (test code = 90171-0) Abnormal MD [facility] Leg Venous Doppler [id number] 21:03:34 No deep venous thrombosis in the [...] agree with the final report.MD PoonPartial Thromboplastin [id number] 17:48:46 Test Item Value Reference Range Interpretation Comments PTT (test code = 28.0 See_Comment [Automated message] The 6773) system which ge nerated this result transmit esperanza reference range : 24.2 - 36.0 second(s). The reference range was not used to interpr et this result as onelia l/abnormal. MD PoonProthrombin Time with [id number] 17:48:45 Test Item Value Reference Range Interpretation Comments PT (test code = 6746) 13.3 See_Comment [Auto mated message] The system which ge nerated this result transmit esperanza reference range : 12.0 - 14.3 second(s). The reference range was not used to interpr et this result as onelia l/abnormal. INR (test code = 1.04 0.90-1.10 5973) MD PoonComplete Blood Count w/o [id number] 17:24:45 Test Item Value Reference Range Interpretation Comments WBC (test code = 6.0 K/uL 08-26 6690-2) RBC (test code = 789-8) 4.52 See_Comment [Au tomated message] The system [employer] generated this result transmitted ref erence range: 4.00 - 5 .50 M/uL. The refer ence range was not u sed to interpret this result as normal/abnor mal. Hgb (test code = 718-7) 10.8 See_Comment L [Au tomated message] The system [employer] generated this result transmitted ref erence range: [...] L [Automate d message] 786-4) The system [employer] generated this result transmitted ref erence range: 31.0 - 3 6.0 gm/dL. The refe rence range was not u sed to interpret this result as normal/abnor mal. RDW-SD (test code = 44.9 fL 35.1-46.3 38277-9) RDW-CV (test code = 15.9 % 12-15.5 [...] cell differential. [Automated mess age] The system [employer] generated this result transmitted ref erence range: <=0.0. T he reference range was not used to int erpret this result as normal/abnormal . Lab Interpretation Abnormal (test code = 68687-7) MD PoonJwvjqrtwKxrrzhpfuxlf2280-92-17 17:17:55 Test Item Value Reference Range Interpretation Comments Neutrophil % (test code = 63.0 % 42-66 60644-3) Lymphocyte % (test code = 26.2 % 24-44 737-7) Monocyte % (test code = 7.8 % 2-7 H 744-3) Eosinophil % (test code = 2.0 % 1-4 713-8) Basophil % (test code = 0.8 % 0-1 707-0) IGRE % (test code = 0.2 % 0-0.4 IGRE % c ount 03658-9) includes Metamyelocytes, Myelocytes, and Promyelocytes. Neutrophil Abs (test code 3.88 K/uL 1.7-7.3 = 753-4) Lymphocyte Abs (test code 1.61 K/uL 1-4.8 = 732-8) Monocyte Abs (test code = 0.48 K/uL 0.08-0.7 743-5) Eosinophil Abs (test code 0.12 K/uL 0.04-0.4 = 712-0) Basophil Abs (test code = 0.05 K/uL 0-0.1 705-4) IG Abs (test code = 0.01 K/uL 0-0.04 98009-8) Lab Interpretation (test Abnormal code = 84180-2) MD PoonFractionated [id number] 16:11:33 Test Item Value Reference Range Interpretation [...] 28 g/L. [Automate d message] The system [employer] generated this result transmitted ref erence range: [...] outside rep ortable range MD PoonGlomerular Filtration [id number] 16:11:32 Test Item Value Reference Range Interpretation [...] failure <15 [Automa esperanza message] The system [employer] generated this result tra nsmitted reference range : >=60 mL/min/1.73 sq. m. The reference range was not used to interpret th is result as normal/abnormal . eGFR-CIERA (test code 118 See_Comment Normal e GFR: >= 60 = 8063) mL/min/1.73 m2N ote: The eGFR is calculated u sing the CKD-EPI equatio n. The eGFR declines with a ge. eGFR <60 mL/min/1.73 m2 is considered as "decreased". This equation should only be used for patients 18 and older. According to th e National Kidney Foundati on's Kidney Disease [...] failure <15 [Automa esperanza message] The system [employer] generated this result tra nsmitted reference range : >=60 mL/min/1.73 sq. m. The reference range was not used to interpret th is result as normal/abnormal . MD PoonTotal [id number] 16:11:31 Test Item Value Reference Range Interpretation Comments Total Protein (test code = 7649) 6.9 g/dL 6.4-8.3 MD PoonMagnesium [id number] 16:11:29 Test Item Value Reference Range Interpretation Comments Magnesium (test code = 6359) 1.7 mg/dL 1.6-2.6 MD PoonPhosphorus [id number] 16:11:28 Test Item Value Reference Range Interpretation Comments Phosphorus (test code = 6817) 3.2 mg/dL 2.5-4.5 MD PoonAlkaline Yrscjmbhxab3423-27-55 16:11:27 Test Item Value Reference Range Interpretation Comments Alk Phos (test code = 4768) 67 U/L 35-104 MD PoonCalcium [id number] 16:11:25 Test Item Value Reference Range Interpretation Comments Calcium Lvl (test code = 5258) 9.0 mg/dL 8.4-10.2 MD PoonVmdldizuOPA1950-86-11 16:11:24 Test Item Value Reference Range Interpretation Comments ALT (test code = 4705) 46 U/L See_Comment H [Aut omated message] The system whic h generated this result transmitted ref erence range: <=33. Th e reference range was not used to int erpret this result as normal/abnormal . Lab Interpretation (test Abnormal code = 93450-7) MD PoonAlbumin [id number] 16:11:23 Test Item Value Reference Range Interpretation Comments Albumin Lvl (test code 3.5 See_Comment [Aut omated message] The = 4763) system which ge nerated this result tra nsmitted reference range : 3.5 - 5.2 gm/dL. The refe rence range was not used to interpret this result as normal/abnormal . MD Poon.Serum Cssltslsmv3059-31-56 16:11:22 Test Item Value Reference Range Interpretation Comments Creatinine (test code = 5399) 0.48 mg/dL 0.51-0.95 L Lab Interpretation (test code = Abnormal 39188-7) MD PoonAspartate [id number] 16:11:21 Test Item Value Reference Range Interpretation [...] mal. Lab Interpretation (test Abnormal code = 55840-7) MD [id number] 16:11:20 Test Item Value Reference Range Interpretation Comments BUN (test code = 5055) 12 mg/dL 6-23 MD PoonElectrolyte [id number] 16:11:19 Test Item Value Reference Range Interpretation Comments Sodium Lvl (test code = 135 See_Comment L [Au tomated message] 8221) The system [employer] generated this result transmitted ref erence range: 136 - 14 5 mEq/L. The refe rence range was not u sed to interpret this result as normal/abnor mal. Potassium Lvl (test code 4.0 See_Comment [A utomated message] = 8405) The system [employer] generated this result transmitted ref erence range: 3.5 - 5. 1 mEq/L. The refe rence range was not u sed to interpret this result as normal/abnor mal. Chloride (test code = 101 See_Comment [Auto mated message] 9300) The system [employer] generated this result transmitted ref erence range: 98 - 107 mEq/L. The refe rence range was not u sed to interpret this result as normal/abnor mal. CO2 (test code = 5227) 21 See_Comment L [Aut omated message] The system [employer] generated this result transmitted ref erence range: 22 - 29 mEq/L. The reference r billie was not used to interpret this result as normal/abnor mal. Anion Gap (test code = 13 See_Comment [Aut omated message] 0187) The system [employer] generated this result transmitted ref erence range: 4 - 14 m Eq/L. The reference r billie was not used to interpret this result as normal/abnor mal. Lab Interpretation (test Abnormal code = 15859-2) MD PoonGlucose [id number] 16:11:18 Test Item Value Reference Range Interpretation [...] diabetes Lab Interpretation (test Abnormal code = 96647-3) MD Poon.[id number] 15:58:44 Test Item Value Reference Range Interpretation Comments WBC (test code = See Note 4-11 A Clotted roselyn ple. Notified 6690-2) Ligi/RN at 07/08 9:54:34 AM VACUUM METALIZING SUPERVISOR, to recollect RBC (test code = See Note See_Comment A Clotted roselyn ple. Notified 789-8) Ligi/RN at 07/08 9:54:34 AM VACUUM METALIZING SUPERVISOR, to recollectCorrec esperanza from 4.63 M/uL on 9:58:44 VACUUM METALIZING SUPERVISOR by Sushila Isaacs. [Aut omated message] The sy stem which generated this result transmit esperanza reference range : 4.00 - 5.50 M/uL. The reference range was not u sed to interpret this result as normal/abnormal . Hgb (test code = See Note See_Comment A Clotted roselyn ple. Notified 718-7) Ligi/RN at 07/08 9:54:34 AM VACUUM METALIZING SUPERVISOR, to recollectCorrec esperanza from 11.2 gm/dL [LOW ] on 07/08/20 9:58:4 4 VACUUM METALIZING SUPERVISOR by Soo Isaacs. [Automated mess age] The system which ge nerated this result tra nsmitted reference range : 12.0 - 16.0 gm/dL. The reference range was not used to interpr et this result as normal/abnormal . Hct (test code = See Note 37-47 A Clotted roselyn ple. Notified 4544-3) Ligi/RN at 07/08 9:54:34 AM VACUUM METALIZING SUPERVISOR, to recollectCorrec esperanza from 35.5 % [LOW] on 07/08/20 9:58:44 VACUUM METALIZING SUPERVISOR by Sushila Isaacs. MPV (test code = See Note 4-10.4 A Clotted roselyn ple. Notified 787-2) Ligi/RN at 07/08 9:54:34 AM VACUUM METALIZING SUPERVISOR, to recollect MCH (test code = See Note 27-31 A Clotted roselyn ple. Notified 785-6) Ligi/RN at 2/21 /2021 9:54:34 AM VACUUM METALIZING SUPERVISOR, to recollectCorrec esperanza from 24.2 pg [LOW] o n 07/08/20 9:58:4 4 VACUUM METALIZING SUPERVISOR by Soo Isaacs. [facility] (test code = See Note See_Comment A Clotted sa mple. Notified 786-4) Ligi/RN at 07/08 9:54:34 AM VACUUM METALIZING SUPERVISOR, to recollectCorrec esperanza from 31.5 gm/dL on 0 07/08/20 9:58:44 VACUUM METALIZING SUPERVISOR by Sushila Isaacs. [Aut omated message] The sy stem which generated this result transmit esperanza reference range : 31.0 - 36.0 gm/dL. The reference range was not used to interpr et this result as normal/abnormal . RDW-SD (test code = See Note 35.1-46.3 A Clotted sample. Notified 65718-8) Ligi/RN at 07/08 9:54:34 AM VACUUM METALIZING SUPERVISOR, to recollectCorrec esperanza from 43.3 fL on 06/19 06/07 9:58:44 VACUUM METALIZING SUPERVISOR by Sushila Isaacs. RDW-CV (test code = See Note 12-15.5 A Clotted sample. Notified 788-0) Ligi/RN at 07/08 9:54:34 AM VACUUM METALIZING SUPERVISOR, to recollectCorrec esperanza from 15.7 % [HI] on 07/08/20 9:58:44 VACUUM METALIZING SUPERVISOR by Sushila Isaacs. Platelet count (test See Note 140-440 A Clotted sample. Notified code = 777-3) Ikeri/RN at 06/19 9:54:34 AM VACUUM METALIZING SUPERVISOR, to recollect Lab Interpretation Abnormal (test code = 47627-6) MD PoonCT Abdomen Pelvis with Mzdxztml6479-30-14 03:12:031. No acute abdominal abnormality, specifically no [...] with the final report.MD PoonX-ray Chest 1 [id number] 01:21:45Intact chest with exception being mild enlarged [...] findings of congestive failure..MD PoonCT Head without Mhwolxcs2068-99-58 00:03:34 1. No evidence of hemorrhage or any other acute intracranial abnormality on CT. Occasional receiver/laborer errors may have occurred due to the [...] or any other acute intracranialabnormality on CT.Occasional receiver/laborer errors may have occurred due to the inherent limitations of voice recognition software, and incorrect words/phrases may have been missed during proofreading. Please interpret using context where substitutions have occurred.MD PoonInfluenza A/B + COVID-19 Asymptomatic- [id number] 23:31:26 Test Item Value Reference Range Interpretation Comments Influenza A (test Not Detected Not Detected code = 75763-9) Influenza B (test Not Detected Not Detected code = 25621-7) COVID19 Not Detected Not Detected (SARS-CoV-2) (test code = 42147-1) COVID19 SARS Inpatient Indication (test Admission code = 09499) Inf AB+Cov19 See Note The rene SARS- CoV-2 Comment (test & Influenza A/ B code = 28001) nucleic acid t est for use on the jennifer s Anastasiya System is a [employer] real-time RT-PC R assay intended for the [...] sheet for patie nts provided by the founder and ceo ([employer]) can be rev iewed at: https://www.fda .gov/m edia/039865/oksana nloadA fact sheet for Health Care providers is provided by the founder and ceo ([employer]) and can be reviewed at: https://www.fda .gov/m edia/402346/oksana nload Influenza A and Influenza B neg [...] high-comple xity tests. The Microbiology Laboratory at [facility], CLIA Accreditation #[id number] and CAP Accreditation #[id number], verif ied the performance characteristics of this assay. Int ernal controls are ed to monitor all sta ges of the test proces s. MD [id number] 23:08:03 Test Item Value Reference Range Interpretation [...] than or equal to 10.00 mg/L. MD PoonRhbcrgveZyfwwl0552-28-12 23:05:14 Test Item Value Reference Range Interpretation Comments Lipase Lvl (test code = 6165) 24 U/L 13-60 MD PoonAhbrsigiZhbhitv6793-79-93 23:05:13 Test Item Value Reference Range Interpretation Comments Amylase Lvl (test code = 4806) 52 U/L 28-100 MD PoonUrinalysis w/Microscopic if [id number] 22:59:11 Test Item Value Reference Range Interpretation [...]
[2020-09-26] MEDS ORDERED: ONDANSETRON 4 MG (ODT) TAB ONE (22:00)
[2020-09-26] MEDS ORDERED: MORPHINE 4 MG/ML SYR ONE (22:00)
--- NOTE | 2020-09-26 23:01 | ER ---
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 C/O pain on R shoulder and unable to lift R arm. Coronavirus screen: Client denies travel out of the [place] in the last 14 days. At this time, the client does not indicate any symptoms associated with coronavirus-19. Ebola Screen: Patient negative for fever greater than or equal to 101.5 degrees Fahrenheit, and additional compatible Ebola Virus Disease symptoms Patient denies exposure to infectious person. Patient denies travel to an Ebola-affected area in the 21 days before illness onset. No symptoms or risks identified at this time. Initial Sepsis Screen: Does the patient meet any 2 criteria? No. Patient's initial sepsis screen is negative. Does the patient have a suspected source of infection? No. Patient's initial sepsis screen is negative. Risk Assessment: Do you want to hurt yourself or someone else? Patient reports no desire to harm self or others. Onset of symptoms was September 26, 2020. 21:20 Method Of Arrival: Ambulatory ca1 21:20 Acuity: ALMA 4 ca1 Triage Assessment: 22:12 General: Appears Behavior is calm, cooperative. Pain: Denies pain. ak2 Historical: - Allergies: 21:27 NKA; ca1 - PMHx: 21:27 Anemia; Diabetes - NIDDM; Hypertension; Vitamin B12 Deficiency; ca1 - PSHx: 21:27 Cholecystectomy; Gastric Bypass; gastric sleeve revision; ca1 - Immunization history:: Adult Immunizations up to date, Client reports having NOT received the Covid vaccine. Flu vaccine is not up to date. - Social history:: Smoking status: Patient denies any tobacco usage or history of. - Family history:: not pertinent. - Hospitalizations: : No recent hospitalization is reported. Screenin:09 Abuse screen: Denies threats or abuse. Denies injuries from another. Nutritional ak2 screening: No deficits noted. Tuberculosis screening: No symptoms or risk factors identified. Fall Risk None identified. Vital Signs: 21:20 BP 138 / 91; Pulse 91; Resp 16 S; Temp 98.2(O); Pulse Ox 99% on R/A; Weight 112.49 kg ca1 (R); Height 5 ft. 3 in. (160.02 cm) (R); Pain 10/10; 22:47 BP 115 / 67; Pulse 78; Resp 18; Pulse Ox 98% ; ak2 21:20 Body Mass Index 43.93 (112.49 kg, 160.02 cm) ca1 ED Course: 21:05 Patient arrived in ED. bp1 21:26 Triage completed. ca1 21:27 Arm band placed on right wrist. ca1 21:29 Yefri Correa MD is Attending Physician. rn 21:36 Shivam Ritter is Primary Nurse. ak2 22:15 XRAY Shoulder RIGHT 2 view In Process Unspecified. EDMS 22:59 Lit Gutiérrez MD is Referral Physician. rn 23:09 No apparent distress. ak2 23:09 Patient has correct armband on for positive identification. ak2 23:09 No provider procedures requiring assistance completed. intact. ak2 Administered Medications: 21:47 Drug: morphine 4 mg Route: IM; Site: left deltoid; ak2 21:47 Drug: Zofran (Ondansetron) 4 mg Route: PO; ak2 Outcome: 23:00 Discharge ordered by . rn 23:09 Transferred by ground EMS Note: [facility] ak2 23:09 Condition: good 23:11 Patient left the ED. ak2 Signatures: Dispatcher [employer] EDMS Yefri Correa MD MD rn Acob, Cheryl, RN RN ca1 Gisel James bp1 Shivam Ritter ak2
--- NOTE | 2020-09-26 23:02 | EDPHYS ---
Physician Documentation [facility] Name: Melody Dominguez Age: 45 yrs Sex: Female : 1975 Arrival Date: 09/26/2020 Time: 21:05 Bed 26 Private MD: ED Physician Yefri Correa HPI: 09/26 21:30 This 45 yrs old Female presents to ER via Ambulatory with complaints of rn Shoulder Injury. 21:30 The patient or guardian complains of decreased range of motion, an injury. right rn shoulder. Onset: The symptoms/episode began/occurred just prior to arrival. Modifying factors: the symptoms are alleviated by remaining still, The symptoms are aggravated by movement. Associated signs and symptoms: Pertinent negatives: Numbness in right arm Weakness in right arm. Severity of symptoms: At their worst the symptoms were moderate, in the emergency department the symptoms are unchanged. The patient has not experienced similar symptoms in the past. Reports fall from standing, landed on right arm/shoulder, + pain with movement, cannot lift right arm. No other injury.. Historical: - Allergies: 21:27 NKA; ca1 - PMHx: 21:27 Anemia; Diabetes - NIDDM; Hypertension; Vitamin B12 Deficiency; ca1 - PSHx: 21:27 Cholecystectomy; Gastric Bypass; gastric sleeve revision; ca1 - Immunization history:: Adult Immunizations up to date, Client reports having NOT received the Covid vaccine. Flu vaccine is not up to date. - Social history:: Smoking status: Patient denies any tobacco usage or history of. - Family history:: not pertinent. - Hospitalizations: : No recent hospitalization is reported. ROS: 21:30 Constitutional: Negative for fever, chills, and weight loss, Neck: Negative for injury, rn pain, and swelling, Cardiovascular: Negative for chest pain, palpitations, and edema, Respiratory: Negative for shortness of breath, cough, wheezing, and pleuritic chest pain, Abdomen/GI: Negative for abdominal pain, nausea, vomiting, diarrhea, and constipation, MS/Extremity: + right shoulder pain and injury Neuro: Negative for headache, weakness, numbness, tingling, and seizure. Exam: 21:30 Constitutional: This is a well developed, well nourished patient who is awake, alert, rn and in no acute distress. Ambulatory to room without assistance. Neck: NO midline tenderness Chest/axilla: Normal chest wall appearance and motion. Nontender with no deformity. No lesions are appreciated. Cardiovascular: Regular rate and rhythm. No pulse deficits. Respiratory: No increased work of breathing, no retractions or nasal flaring. MS/ Extremity: Pulses equal, no cyanosis. Neurovascular intact. + right arm held in passive flexion, + painful ROM with shoulder with tenderness proximal right humerus, no open wound,. Neuro: Awake and alert, GCS 15, oriented to person, place, time, and situation. Cranial nerves II-XII grossly intact. Motor strength 5/5 in all extremities. Sensory grossly intact. Cerebellar exam normal. Normal gait. Vital Signs: 21:20 BP 138 / 91; Pulse 91; Resp 16 S; Temp 98.2(O); Pulse Ox 99% on R/A; Weight 112.49 kg ca1 (R); Height 5 ft. 3 in. (160.02 cm) (R); Pain 10/10; 22:47 BP 115 / 67; Pulse 78; Resp 18; Pulse Ox 98% ; ak2 21:20 Body Mass Index 43.93 (112.49 kg, 160.02 cm) ca1 MDM: 21:29 Patient medically screened. rn 22:57 Differential diagnosis: Anterior dislocation with fracture, Anterior dislocation rn without fracture, Posterior dislocation with fracture, Posterior dislocation without fracture, humeral head fracture, glenoid fracture, tendon injury, ligamentous injury. Data reviewed: vital signs, nurses notes, radiologic studies, plain films, and as a result, I will discharge patient. Counseling: I had a detailed discussion with the patient and/or guardian regarding: the historical points, exam findings, and any diagnostic results supporting the discharge/admit diagnosis, radiology results, the need for outpatient follow up, to return to the emergency department if symptoms worsen or persist or if there are any questions or concerns that arise at home. Response to treatment: the patient's symptoms have mildly improved after treatment, and as a result, I will discharge patient. Special discussion: I discussed with the patient/guardian in detail that at this point there is no indication for admission to the hospital. It is understood, however, that if the symptoms persist or worsen the patient needs to return immediately for re-evaluation. ED course: Xray shoulder without fracture/dislocation, will sling and dc home with ortho f/u for MRI to eval for ligamentous injury.. 09/26 21:38 Order name: XRAY Shoulder RIGHT 2 view rn 09/26 21:38 Order name: Sling rn Administered Medications: 21:47 Drug: morphine 4 mg Route: IM; Site: left deltoid; ak2 21:47 Drug: Zofran (Ondansetron) 4 mg Route: PO; ak2 Disposition: 09/26/20 23:00 Discharged to Home. Impression: Unspecified sprain of right shoulder joint. - Condition is Stable. - Discharge Instructions: Shoulder Sprain, How to Use a Sling. - Medication Reconciliation Form, Thank You Letter, Antibiotic Education, Prescription Opioid Use form. - Follow up: Lit Gutiérrez MD; When: As needed; Reason: Recheck today's complaints, Re-evaluation by your physician. - Problem is new. - Symptoms have improved. Signatures: Dispatcher [employer] EDMS Yefri Correa MD MD rn Acob, JORDY Garza RN, Anthony sd2 Corrections: (The following items were deleted from the chart) 21:32 21:30 Constitutional: Negative for fever, chills, and weight loss, Neck: Negative for rn injury, pain, and swelling, Cardiovascular: Negative for chest pain, palpitations, and edema, Respiratory: Negative for shortness of breath, cough, wheezing, and pleuritic chest pain, Abdomen/GI: Negative for abdominal pain, nausea, vomiting, diarrhea, and constipation, MS/Extremity: + right shoulder pain and injury Neuro: Negative for headache, weakness, numbness, tingling, and seizure, rn 23:11 23:00 09/26/2020 23:00 Discharged to Home. Impression: Unspecified sprain of right ak2 shoulder joint. Condition is Stable. Forms are Medication Reconciliation Form, Thank You Letter, Antibiotic Education, Prescription Opioid Use. Follow up: Dr. Lit Gutiérrez; When: As needed; Reason: Recheck today's complaints, Re-evaluation by your physician. Problem is new. Symptoms have improved. rn
[2020-09-26 23:21] VITALS: TEMP 98.2
[2020-09-26 23:23] VITALS: BP 115/67; O2SAT 98
--- NOTE | 2020-09-27 11:02 | RAD REPORT ---
EXAM DESCRIPTION: Shoulder Right 2 View - 09/26/2020 10:15 pm CLINICAL HISTORY: PAIN COMPARISON: None. FINDINGS: 2 views of the right shoulder. No acute fracture or dislocation. Normal osseous mineraliza tion. No acute abnormalities of the left hemithorax. IMPRESSION: 1. No acute fracture or dislocation. Electronically signed by: Kei Donaldson 09/26/2020 10:40 PM CDT Due to temporary technical issues with the PACS/Fluency reporting system, reports are being signed by the in house radiologist without review as a courtesy to ensure prompt reporting. The interpreting r adiologist is fully responsible for the content of the report.
== END 2020-09-26 23:11 | disposition home or self-care (01) ==
LOC: ER 21:01
DX: S43.401A Unspecified sprain of right shoulder joint, initial encounter (principal); W18.30XA Fall on same level, unspecified, initial encounter; I10 Essential (primary) hypertension
CPT/HCPCS: 96372; 99285

== ENCOUNTER 2021-05-27 03:54 | Emergency (ER) | payer SELFPAY ==
--- OUTSIDE RECORDS SUMMARY | 2021-05-27 03:59 | XMS REPORT | Continuity of Care Document ---
:1975 Author Organization [facility] t Address [address] [place] [address] Care Team Providers Name Role Phone Zev Jean Baptiste Primary Care Physician Ana Luisa Charles Attending Clinician Martha Rivera MD Attending Clinician Martha RIVERA Attending Clinician Unavailable Doctor Unassigned, Name Attending Clinician Unavailable Ana Luisa TRUONG Attending Clinician Unavailable Easton Varghese DO Attending Clinician Alexi AKHTAR R Attending Clinician JENY Attending Clinician Unavailable Edelmira ALFARO Attending Clinician Rosalia ALFARO Attending Clinician Jeny ALFARO Attending Clinician Cornelia SPENCE MSN, J Attending Clinician Unavailable Colt WARREN Attending Clinician Unavailable Colt Warren MD Attending Clinician Carmita RN, M Attending Clinician Unavailable SOLO Attending Clinician Unavailable EDELMIRA Admitting Clinician Unavailable Payers Payer Name Policy Type Policy Number Effective Date Expiration Date S [facility] [id number] 2014 00:00:00 Problems Condition Condition Condition Status Onset Resolution Last Treating Co mments Source Name Details Category Date Date Treatment Clinician Date Screen for Screen for Disease Active U nivers STD STD 3-17 ity of ([place] transmit[place] transmitte 00 Me dical d disease) d disease) Br anch History of History of Disease Active U nivers abnormal abnormal 3-17 ity of cervical cervical 00:00: [place] Pap smear Pap smear [address] [facility] Branch BMI BMI Disease Active Univers 40.0-44.9, 40.0-44.9, 3-17 it y of adult adult 00:00: [place] [facility] Dysuria Dysuria Disease Active Univers 3-17 ity of 00:00: [place] [facility] Swelling Swelling Disease Active MD of left of left 2-22 [place] upper limb upper limb 00:00: n 00 Pain in Pain in Disease Active MD left arm left arm 2-21 [place] 00:00: n 00 Acute Acute Disease Active MD headache headache 2-20 [place] 00:00: n 00 Abdominal Abdominal Disease Active MD pain pain 2-20 Anderso 00:00: n 00 Hypertensi Hypertensi Disease Active M D on on - Anderso 00:00: n 00 Morbid Morbid Disease Active Univers obesity obesity 6-25 ity of 00:00: [place] [facility] Obesity Obesity Disease Active Univers (BMI (BMI 6-15 ity of 30-39.9) 30-39.9) 00:00: [place] [facility] Seroma of Seroma of Disease Active Uni vers breast breast 5-09 ity of 00:00: [place] [address] Medical Branch Chronic Chronic Disease Active Univers midline midline 5-04 ity of low back low back 00:00: [place] pain pain 00 [facility] without without Branch sciatica sciatica Dysplasia Dysplasia Disease Active Uni vers of cervix, of cervix, 5-04 it y of high grade [place] ROMANA 2 ROMANA 2 00 Medical Branch Absence of Absence of Disease Active U nivers menstruati menstruati 5-04 it y of on on 00:00: [place] [address] Medical Branch History of History of Disease Active U nivers laparoscop laparoscop 08-26 it y of ic ic 00:00: [place] cholecyste cholecyste 00 Me dical ctomy ctomy Branch History of History of Disease Active U nivers removal of removal of 08-26 it y of laparoscop laparoscop [place] gastric ic gastric 00 Me dical banding banding Branch device device Pain Pain Disease Active Univers pelvic pelvic - ity of 00:00: [place] [facility] Branch Mammogram Mammogram Disease Active Uni vers abnormal abnormal 08-26 ity of 00:00: [place] 00 [facility] Estrogen Estrogen Disease Active Unive rs increased increased 08-26 ity of 00:00: [place] [facility] Branch Right Right Disease Active Univers ovarian ovarian 08-26 ity of cyst cyst 00:00: [address] Postcoital Postcoital Disease Active U nivers bleeding bleeding 08-26 ity of 00:00: [place] 00 [facility] Branch Dyspareuni Dyspareuni Disease Active U nivers a in a in 08-26 ity of female female 00:00: [place] 00 [facility] Branch Pelvic Pelvic Disease Active Univers adhesive adhesive 08-26 ity of disease disease 00:00: [address] Allergies, Adverse Reactions, Alerts Allergy Allergy Status Severity Reaction(s) Onset Inactive Treating Comm ents Source Name Type Date Date Clinician NO KNOWN Drug Active Univers ALLERGIE Class ity of S [facility] [place] [facility] Family History Family Member Diagnosis Comments Start Date Stop Date Source Natural father Parkinsonism Joe son Natural father Hypertension Joe son Natural mother Dementia MD Stuart cevallos Natural mother Diabetes MD Stuart cevallos Natural mother Kidney disease Natural daughter Cancer Joe son Social History Social Habit Start Date Stop Date Quantity Comments Source Exposure to Not sure University of SARS-CoV-2 [place] [facility] (event) Branch History [facility] MD [place] Alcohol Frequency History [facility] MD [place] Alcohol Std Drinks History [facility] MD [place] Alcohol Binge Tobacco use and 2020-07-07 2020-07-07 Smokeless tobacco MD [place] exposure 00:00:00 00:00:00 non-user Alcohol intake 2020-07-07 2020-07-07 Current drinker of MD [place]oon 00:00:00 00:00:00 alcohol (finding) History [facility] 2020-07-072020-07-07 occassional MD [place] Alcohol Comment 00:00:00 00:00:00 [birth year] MD [place] on 00:00:00 00:00:00 Smoking Status Start Date Stop Date Source Never smoked tobacco MD [place] Medications Ordered Filled Start Stop Current Ordering Indication Dosage Frequency Signature Comments Components Source Medication Medication Date Date Medication? Clinician (SIG) Name Name acetaminoph 2020- No 1000mg 1,000 mg, Univers en 01-29 Oral, ONCE ity of (TYLENOL) 16:15: 15:11 NOW, 1 [place] tablet 00 :00 dose, On Medical 1,000 mg e Branch 01/29/21 at 1115, Routine acetaminoph 2020- No 1000mg 1,000 mg, Univers en 01-29 Oral, ONCE ity of (TYLENOL) 16:15: 15:11 NOW, 1 [place] tablet 00 :00 dose, On Medical 1,000 mg [facility] 01/29/21 at 1115, Routine vitamin B 2020- No Take by Uni vers complex (B 3-17 -17 mouth. ity of COMPLEX 1 17:25: 00:00 [place] ORAL) 12 :00 [facility] vitamin B 2020- No Take by Uni vers complex (B 3-17 03-17 mouth. ity of COMPLEX 1 17:25: 00:00 [place] ORAL) 12 :00 [facility] vitamin B 2020- No Take by Uni vers complex (B 3-17 -17 mouth. ity of COMPLEX 1 17:25: 00:00 [place] ORAL) 12 :00 [facility] vitamin B 2020- No Take by Uni vers complex (B 3-17 -17 mouth. ity of COMPLEX 1 17:25: 00:00 [place] ORAL) 12 :00 [facility] Branch losartan 50 2020- No 50mg Take 50 mg Univers mg tablet 08-01 by mouth ity o f 17:24: 00:00 daily. [place] 54 :00 [facility] losartan 50 2020- No 50mg Take 50 mg Univers mg tablet 08-01 by mouth ity o f 17:24: 00:00 daily. [place] 54 :00 Medical Branch losartan 50 0 2020- No 50mg Take 50 mg Univers mg tablet 08-01 by mouth ity o f 17:24: 00:00 daily. [place] 54 :00 [facility] losartan 50 0 2020- No 50mg Take 50 mg Univers mg tablet 08-01 by mouth ity o f 17:24: 00:00 daily. [place] 54 :00 [facility] Branch lisinopril 2020- No 10mg Take 10 mg Univers 10 mg 08-01 by mouth ity of tablet 17:24: 00:00 daily. [place] 51 :00 [facility] lisinopril 0 2020- No 10mg Take 10 mg Univers 10 mg 08-01 by mouth ity of tablet 17:24: 00:00 daily. [place] 51 :00 [facility] lisinopril 0 2020- No 10mg Take 10 mg Univers 10 mg 08-01 by mouth ity of tablet 17:24: 00:00 daily. [place] 51 :00 [facility] lisinopril 0 2020- No 10mg Take 10 mg Univers 10 mg 08-01 by mouth ity of tablet 17:24: 00:00 daily. [place] 51 :00 [facility] ferrous 2020-0 2020- No Take by Unive rs sulfate 08-01-17 mouth. ity of (IRON ORAL) 17:24: 00:00 [place] 48 :00 [facility] ferrous 2020-0 2020- No Take by Unive rs sulfate 08-01-17 mouth. ity of (IRON ORAL) 17:24: 00:00 [place] 48 :00 Medical Branch ferrous 2020-0 2020- No Take by Unive rs sulfate -01 08-17 mouth. ity of (IRON ORAL) 17:24: 00:00 [place] 48 :00 [facility] ferrous 2020-0 2020- No Take by Unive rs sulfate 08-01-17 mouth. ity of (IRON ORAL) 17:24: 00:00 [place] 48 :00 [facility] ertuglifloz 2020-0 2020- No Take by Moi villarreal in 08-01-17 mouth. ity of (STEGLATRO) 17:24: 00:00 [place] 5 mg Tab 45 :00 [facility] ertuglifloz 2020- No Take by U nivers in 08-01-17 mouth. ity of (STEGLATRO) 17:24: 00:00 [place] 5 mg Tab 45 :00 Medical Branch ertuglifloz 2020-2020- No Take by U nivers in 08-01-17 mouth. ity of (STEGLATRO) 17:24: 00:00 [place] 5 mg Tab 45 :00 Medical Branch ertuglifloz 2020- No Take by U nivers in 08-01-17 mouth. ity of (STEGLATRO) 17:24: 00:00 [place] 5 mg Tab 45 :00 Medical Branch cyanocobala 2020- No Take by U nivers min/salcapr 08-0117 mouth. ity o f ozat sod 17:24: 00:00 [place] (ELIGEN B12 42 :00 Medical ORAL) Branch cyanocobala 2020- No Take by U nivers min/salcapr 08-01-17 mouth. ity o f ozat sod 17:24: 00:00 [place] (ELIGEN B12 42 :00 Medical ORAL) Branch cyanocobala 2020- No Take by U nivers min/salcapr 08-01-17 mouth. ity o f ozat sod 17:24: 00:00 [place] (ELIGEN B12 42 :00 Medical ORAL) Branch cyanocobala 2020-2020- No Take by U nivers min/salcapr 08-0117 mouth. ity o f ozat sod 17:24: 00:00 [place] (ELIGEN B12 42 :00 Medical ORAL) Branch cyanocobala 2020-0 2020- No Inject as Univers min, 08-01 directed. ity of vitamin 17:24: 00:00 [place] B-12, 39 :00 Medical ([employer]-B12 Branch INJECTION) cyanocobala 2020-2020- No Inject as Univers min, 08-01- directed. ity of vitamin 17:24: 00:00 [place] B-12, 39 :00 Medical ([employer]-B12 Branch INJECTION) cyanocobala 20202020- No Inject as Univers min, 08-01 directed. ity of vitamin 17:24: 00:00 [place] B-12, 39 :00 Medical ([employer]-B12 Branch INJECTION) cyanocobala 2020- No Inject as Univers min, 08-01 directed. ity of vitamin 17:24: 00:00 [place] B-12, 39 :00 Medical ([employer]-B12 Branch INJECTION) Cholecalcif 2020- No Take by U nivers bijan, 08-01 mouth. ity of Vitamin D3, 16:35: 00:00 [place] (VITAMIN 25 :00 Medical D3) 5,000 Branch unit tablet Cholecalcif 2020- No Take by U nivers bijan, 08-01 mouth. ity of Vitamin D3, 16:35: 00:00 [place] (VITAMIN 25 :00 Medical D3) 5,000 Branch unit tablet Cholecalcif 2020- No Take by U nivers bijan, 08-01 mouth. ity of Vitamin D3, 16:35: 00:00 [place] (VITAMIN 25 :00 Medical D3) 5,000 Branch unit tablet Cholecalcif 2020- No Take by U nivers bijan, 08-01 mouth. ity of Vitamin D3, 16:35: 00:00 [place] (VITAMIN 25 :00 Medical D3) 5,000 Branch unit tablet esomeprazol Yes 40mg Take 40 mg Univers e (NEXIUM) 3-17 by mouth ity o f 40 mg 16:24: daily. [place] capsule 57 Medical Branch esomeprazol 0 Yes 40mg Take 40 mg Univers e (NEXIUM) 3-17 by mouth ity o f 40 mg 16:24: daily. [place] capsule 57 Medical Branch esomeprazol 0 Yes 40mg Take 40 mg Univers e (NEXIUM) 3-17 by mouth ity o f 40 mg 16:24: daily. [place] capsule 57 Medical Branch esomeprazol 0 Yes 40mg Take 40 mg Univers e (NEXIUM) 3-17 by mouth ity o f 40 mg 16:24: daily. [place] capsule 57 Medical Branch esomeprazol 0 Yes 40mg Take 40 mg Univers e (NEXIUM) 3-17 by mouth ity o f 40 mg 16:24: daily. [place] capsule 57 Medical Branch esomeprazol Yes 40mg Take 40 mg Univers e (NEXIUM) 3-17 by mouth ity o f 40 mg 16:24: daily. [place] capsule 57 Medical Branch esomeprazol Yes 40mg Take 40 mg Univers e (NEXIUM) 3-17 by mouth ity o f 40 mg 16:24: daily. [place] capsule 57 Medical Branch esomeprazol 0 Yes 40mg Take 40 mg Univers e (NEXIUM) 3-17 by mouth ity o f 40 mg 11:24: daily. [place] capsule 57 Medical Branch esomeprazol Yes 40mg Take 40 mg Univers e (NEXIUM) 3-17 by mouth ity o f 40 mg 11:24: daily. [facility] 57 [facility] Branch losartan-hy Yes Take by drochloroth 2-22 mouth [place] iazide 10:47: daily. n (HYZAAR) 36 100-12.5 mg per tablet esomeprazol Yes 40mg Take 40 mg MD e (NexIUM) 2-22 by mouth. Joel rso 40 MG 10:47: n capsule 36 cetirizine Yes Take by (ZyrTEC) 5 2-22 mouth. Anderso mg tablet 10:47: n 36 metroNIDAZO Yes [id number] 500mg Take 1 Univers LE 500 mg 7-08 tablet by ity o f tablet 00:00: mouth [place] 00 every 12 Medical (twelve) Branch hours. metroNIDAZO Yes [id number] 500mg Take 1 Univers LE 500 mg 7-08 tablet by ity o f tablet 00:00: mouth [place] 00 every 12 Medical (twelve) Branch hours. metroNIDAZO 2020- No [id number] 500mg Take 1 Univers LE 500 mg 7-08 -17 tablet by ity of tablet 00:00: 00:00 mouth [place] 00 :00 every 12 Medical (twelve) Branch hours. metroNIDAZO 2020- No [id number] 500mg Take 1 Univers LE 500 mg 7-08 -17 tablet by ity of tablet 00:00: 00:00 mouth [place] 00 :00 every 12 Medical (twelve) Branch hours. metroNIDAZO 2018-2020- No [id number] 500mg Take 1 Univers LE 500 mg 11-22 tablet by ity of tablet 00:00: 00:00 mouth [place] 00 :00 every 12 Medical (twelve) Branch hours. metroNIDAZO 2020- No [id number] 500mg Take 1 Univers LE 500 mg 11-22 tablet by ity of tablet 00:00: 00:00 mouth [place] 00 :00 every 12 Medical (twelve) Branch hours. losartan 50 Yes 50mg Take 50 mg Univers mg tablet 6-25 by mouth ity of 20:44: daily. [place] [address] Medical Branch ertuglifloz Yes Take by Un agapito in 6-25 mouth. ity of (STEGLATRO) 20:44: [place] 5 mg Tab 05 Medical Branch losartan-hy Yes 1{tbl} Take 1 Un agapito drochloroth 6-25 tablet by ity of iazide 20:44: mouth [place] 50-12.5 mg 05 daily. Medical per tablet Branch ferrous Yes Take by Univ s sulfate 6-25 mouth. ity of (IRON ORAL) 20:44: [place] [address] Medical Branch cyanocobala Yes Take by Un agapito min/salcapr 6-25 mouth. ity of ozat sod 20:44: [place] (ELIGEN B12 05 Medical ORAL) Branch cyanocobala Yes Inject as Univers min, 6-25 directed. ity of vitamin 20:44: [place] B-12, Medical ([employer]-B12 Branch INJECTION) vitamin B Yes Take by [facility] ers complex (B 6-25 mouth. ity of COMPLEX 1 20:44: [place] ORAL) 05 Medical Branch lisinopril 0 Yes 10mg Take 10 mg U nivers 10 mg 6-25 by mouth ity of tablet 20:44: daily. [place] [address] Medical Branch losartan 50 Yes 50mg Take 50 mg Univers mg tablet 6-25 by mouth ity of 20:44: daily. [place] [address] Medical Branch ertuglifloz Yes Take by Un agapito in 6-25 mouth. ity of (STEGLATRO) 20:44: [place] 5 mg Tab 05 Medical Branch losartan-hy Yes 1{tbl} Take 1 Un agapito drochloroth 6-25 tablet by ity of iazide 20:44: mouth [place] 50-12.5 mg 05 daily. Medical per tablet Branch ferrous Yes Take by Univer s sulfate 6-25 mouth. ity of (IRON ORAL) 20:44: [place] 05 Medical Branch cyanocobala Yes Take by Un agapito min/salcapr 6-25 mouth. ity of ozat sod 20:44: [place] (ELIGEN B12 05 Medical ORAL) Branch cyanocobala Yes Inject as Univers min, 6-25 directed. ity of vitamin 20:44: [place] B-12, 05 Medical ([employer]-B12 Branch INJECTION) vitamin B Yes Take by Univ ers complex (B 6-25 mouth. ity of COMPLEX 1 20:44: [place] ORAL) 05 Medical Branch losartan-hy Yes 1{tbl} Take 1 Un agapito drochloroth 6-25 tablet by ity of iazide 20:44: mouth [place] 50-12.5 mg 05 daily. Medical per tablet Branch losartan-hy Yes 1{tbl} Take 1 Un [place] drochloroth 6-25 tablet by ity of iazide 20:44: mouth [place] 50-12.5 mg 05 daily. Medical per tablet Branch losartan-hy Yes 1{tbl} Take 1 Un [place] drochloroth 6-25 tablet by ity of iazide 20:44: mouth [place] 50-12.5 mg 05 daily. Medical per tablet Branch losartan-hy Yes 1{tbl} Take 1 Un ag[place] drochloroth 6-25 tablet by ity of iazide 20:44: mouth [place] 50-12.5 mg 05 daily. Medical per tablet Branch losartan-hy Yes 1{tbl} Take 1 Un [place] drochloroth 6-25 tablet by ity of iazide 20:44: mouth [place] 50-12.5 mg 05 daily. Medical per tablet Branch losartan-hy Yes 1{tbl} Take 1 Un [place] drochloroth 6-25 tablet by ity of iazide 20:44: mouth [place] 50-12.5 mg 05 daily. Medical per tablet Branch losartan-hy Yes 1{tbl} Take 1 Un [place] drochloroth 6-25 tablet by ity of iazide 20:44: mouth [place] 50-12.5 mg 05 daily. Medical per tablet Branch lisinopril Yes 10mg Take 10 mg U nivers 10 mg 6-25 by mouth ity of tablet 20:44: daily. 05 Medical Branch Cholecalcif Yes Take by Un agapito bijan, 6-25 mouth. ity of Vitamin D3, 20:44: [place] (VITAMIN 04 Medical D3) 5,000 Branch unit tablet Cholecalcif Yes Take by Un agapito bijan, 6-25 mouth. ity of Vitamin D3, 20:44: [place] (VITAMIN 04 Medical D3) 5,000 Branch unit tablet losartan-hy Yes 1{tbl} Take 1 Un [place] drochloroth 6-25 tablet by ity of iazide 15:44: mouth [place] 50-12.5 mg 05 daily. Medical per tablet Branch losartan-hy Yes 1{tbl} Take 1 Un [place] drochloroth 6-25 tablet by ity of iazide 15:44: mouth [place] 50-12.5 mg 05 daily. Medical per tablet Branch hydroCHLORO Yes TAKE 1 Univ ers thiazide 6-10 TABLET BY ity of 12.5 mg 00:00: MOUTH [place] tablet 00 EVERY DAY. Medical PATIENT Branch DUE FOR LABS AND OFFICE VISIT BEFORE NEXT REFILL. hydroCHLORO Yes TAKE 1 Univ ers thiazide 6-10 TABLET BY ity of 12.5 mg 00:00: MOUTH [place] tablet 00 EVERY DAY. Medical PATIENT Branch DUE FOR LABS AND OFFICE VISIT BEFORE NEXT REFILL. hydroCHLORO 2020- No TAKE 1 Uni vers thiazide 6-10 03-17 TABLET BY ity o f 12.5 mg 00:00: 00:00 MOUTH [place] tablet 00 :00 EVERY DAY. Medical PATIENT Branch DUE FOR LABS AND OFFICE VISIT BEFORE NEXT REFILL. hydroCHLORO 2020- No TAKE 1 Uni vers thiazide 6-10 03-17 TABLET BY ity o f 12.5 mg 00:00: 00:00 MOUTH [place] tablet 00 :00 EVERY DAY. Medical PATIENT Branch DUE FOR LABS AND OFFICE VISIT BEFORE NEXT REFILL. hydroCHLORO 2020- No TAKE 1 Uni vers thiazide 6-10 03-17 TABLET BY ity o f 12.5 mg 00:00: 00:00 MOUTH [place] tablet 00 :00 EVERY DAY. Medical PATIENT Branch DUE FOR LABS AND OFFICE VISIT BEFORE NEXT REFILL. hydroCHLORO 2020- No TAKE 1 Uni vers thiazide 6-10 03-17 TABLET BY ity o f 12.5 mg 00:00: 00:00 MOUTH [place] tablet 00 :00 EVERY DAY. Medical PATIENT Branch DUE FOR LABS AND OFFICE VISIT BEFORE NEXT REFILL. acetaminoph Yes [id number] 1{tbl} Take 1 Univers en-codeine 1-26 tablet by ity of (TYLENOL-CO 00:00: mouth [place] DEINE #3) 00 every 4 Medical 300-30 mg (four) Branch tablet hours as needed for Pain (scale 4-6). acetaminoph Yes [id number] 1{tbl} Take 1 Univers en-codeine 1-26 tablet by ity of (TYLENOL-CO 00:00: mouth [place] DEINE #3) 00 every 4 Medical 300-30 mg (four) Branch tablet hours as needed for Pain (scale 4-6). acetaminoph 2020- No [id number] 1{tbl} Take 1 Univers en-codeine 1-26 03-17 tablet by ity of (TYLENOL-CO 00:00: 00:00 [place] DEINE #3) 00 :00 every 4 Medical 300-30 mg (four) Branch tablet hours as needed for Pain (scale 4-6). acetaminoph 2020- No [id number] 1{tbl} Take 1 Univers en-codeine 1-26 03-17 tablet by ity of (TYLENOL-CO 00:00: 00:00 [place] DEINE #3) 00 :00 every 4 Medical 300-30 mg (four) Branch tablet hours as needed for Pain (scale 4-6). acetaminoph 2020- No [id number] 1{tbl} Take 1 Univers en-codeine 1-26 03-17 tablet by ity of (TYLENOL-CO 00:00: 00:00 [place] DEINE #3) 00 :00 every 4 Medical 300-30 mg (four) Branch tablet hours as needed for Pain (scale 4-6). acetaminoph 2020- No [id number] 1{tbl} Take 1 Univers en-codeine 06-12 tablet by ity of (TYLENOL-CO 00:00: 00:00 [place] DEINE #3) 00 :00 every 4 Medical 300-30 mg (four) Branch tablet hours as needed for Pain (scale 4-6). naproxen Yes [id number] 500mg Take 1 Un ag[place] 500 mg 4-11 tablet by ity of tablet 00:00: mouth 2 (two) Medical times Branch daily with meals. naproxen Yes [id number] 500mg Take 1 Un [place] 500 mg 4-11 tablet by ity of tablet 00:00: mouth 2 00 (two) Medical times Branch daily with meals. naproxen 2020- No [id number] 500mg Take 1 U nivers 500 mg 08-26 tablet by ity of tablet 00:00: 00:00 mouth 2 [place] 00 :00 (two) Medical times Branch daily with meals. naproxen 2020- No [id number] 500mg Take 1 U nivers 500 mg 08-26 tablet by ity of tablet 00:00: 00:00 mouth 2 [place] 00 :00 (two) Medical times Branch daily with meals. naproxen 2020- No [id number] 500mg Take 1 U nivers 500 mg 08-26 tablet by ity of tablet 00:00: 00:00 mouth 2 [place] 00 :00 (two) Medical times Branch daily with meals. naproxen 2020- No [id number] 500mg Take 1 U nivers 500 mg 08-26-17 tablet by ity of tablet 00:00: 00:00 mouth 2 [place] 00 :00 (two) Medical times Branch daily with meals. ondansetron Yes Univer s 4 mg tablet 08-24 ity of 00:00: [place] 00 Medical Branch ondansetron Yes Univer s 4 mg tablet 08-24 ity of 00:00: [place] 00 Medical Branch ondansetron 2020- No Unive rs 4 mg tablet 08-24 ity of 00:00: 00:00 [place] 00 :00 Medical Branch ondansetron 0 2020- No Unive rs 4 mg tablet 08-24 ity of 00:00: 00:00 [place] 00 :00 Medical Branch ondansetron 2016-0 2020- No Unive rs 4 mg tablet 08-24 ity of 00:00: 00:00 [place] 00 :00 Medical Branch ondansetron 2016-0 2020- No Unive rs 4 mg tablet 08-24 ity of 00:00: 00:00 [place] 00 :00 Medical Branch levoFLOXaci 0 Yes Univer s n 500 mg 3-24 ity of tablet 00:00: [place] 00 Medical Branch tamsulosin 2016-0 Yes Univers 0.4 mg 24 3-24 ity of hr capsule 00:00: [place] 00 Medical Branch levoFLOXaci 0 Yes Univer s n 500 mg 3-24 ity of tablet 00:00: [place] 00 Medical Branch tamsulosin 2016-0 Yes Univers 0.4 mg 24 3-24 ity of hr capsule 00:00: [place] 00 Medical Branch levoFLOXaci 2016-0 2020- No Unive rs n 500 mg 08-08-17 ity of tablet 00:00: 00:00 [place] 00 :00 Medical Branch tamsulosin 2017-0 2020- No Univer s 0.4 mg 24 3-24 -17 ity of hr capsule 00:00: 00:00 [place] 00 :00 Medical Branch levoFLOXaci 2016-0 2020- No Unive rs n 500 mg 324 -17 ity of tablet 00:00: 00:00 [place] 00 :00 Medical Branch tamsulosin 2017-0 2020- No Univer s 0.4 mg 24 3-24 03-17 ity of hr capsule 00:00: 00:00 [place] 00 :00 Medical Branch levoFLOXaci 2017-0 2020- No Unive rs n 500 mg 3-24 -17 ity of tablet 00:00: 00:00 [place] 00 :00 Medical Branch tamsulosin 2017-0 2020- No Univer s 0.4 mg 24 3-24 03-17 ity of hr capsule 00:00: 00:00 [place] 00 :00 Medical Branch levoFLOXaci 2017-0 2020- No Unive rs n 500 mg 08-08 ity of tablet 00:00: 00:00 [place] 00 :00 [facility] tamsulosin 2020- No Univer s 0.4 mg 24 08-08 ity of hr capsule 00:00: 00:00 [place] 00 :00 [facility] Vital Signs Vital Name Observation Time Observation Value Comments Source Systolic blood 2021-01-29 155 mm[Hg] University of pressure 14:45:00 [facility] [place] [facility] Diastolic blood 2021-01-29 95 mm[Hg] University o f pressure 14:45:00 [facility] [place] [facility] Heart rate 2021-01-29 94 /min [facility] 14:45:00 [facility] [place] [facility] Body temperature 2021-01-29 37.67 Shannan [facility] 14:45:00 [facility] [place] [facility] Respiratory rate 2021-01-29 18 /min [facility] 14:45:00 [facility] [place] [facility] Body height 2021-01-29 160 cm [facility] 14:45:00 [facility] [place] [facility] Body weight 2021-01-29 113.399 kg University of 14:45:00 [facility] [place] [facility] BMI 2021-01-29 44.29 kg/m2 University of 14:45:00 [facility] [place] [facility] Oxygen saturation 2021-01-29 95 /min [facility] in Arterial blood 14:45:00 [facility] Pulse oximetry [place] Systolic blood 2020-08-01 133 mm[Hg] takig losartan University of pressure 16:12:00 [facility] [place] [facility] Diastolic blood 2020-08-01 90 mm[Hg] takig losartan University of pressure 16:12:00 [facility] [place] [facility] Heart rate 2020-08-01 64 /min University of 16:12:00 [facility] [place] [facility] Body temperature 2020-08-01 36.89 Shannan University of 16:07:00 [facility] [place] [facility] Respiratory rate 2020-08-01 16 /min University of 16:07:00 [facility] [place] [facility] Body weight 2020-08-01 111.948 kg [facility] of 16:07:00 [facility] BMI 2020-08-01 43.72 kg/m2 [facility] 16:07:00 [facility] Systolic blood 2020-08-01 133 mm[Hg] takig losartan [facility] pressure 16:12:00 [facility] Diastolic blood 2020-08-01 90 mm[Hg] takig losartan [facility] pressure 16:12:00 [facility] Heart rate 2020-08-01 64 /min University 16:12:00 [facility] Body temperature 2020-08-01 36.89 Shannan [facility] 16:07:00 [facility] Respiratory rate 2020-08-01 16 /min [facility] 16:07:00 [facility] Body weight 2020-08-01 111.948 kg [facility] 16:07:00 [facility] BMI 2020-08-01 43.72 kg/m2 [facility] 16:07:00 [facility] HEIGHT 2020-07-08 160 cm 13:30:00 WEIGHT 2020-07-08 110.7 kg 13:30:00 HEIGHT 2020-07-08 160 cm 13:30:00 WEIGHT 2020-07-08 110.7 kg 13:30:00 WEIGHT 2020-07-07 111.9 kg 15:14:00 HEIGHT 2020-07-07 160 cm 15:11:00 WEIGHT 2020-07-07 111.9 kg 15:14:00 HEIGHT 2020-07-07 160 cm 15:11:00 Systolic blood 2020-07-09 122 mm[Hg] MD Poon pressure 16:12:00 Diastolic blood 2020-07-09 77 mm[Hg] MD Poon pressure 16:12:00 Heart rate 2020-07-09 71 /min MD Poon 16:12:00 Body temperature 2020-07-09 36.5 Shannan MD Poon 14:03:19 Respiratory rate 2020-07-09 19 /min MD Poon 14:03:19 Oxygen saturation 2020-07-09 96 /min MD Stuart cevallos in Arterial blood 14:03:19 by Pulse oximetry Body height 2020-07-08 160 cm MD Poon 19:30:00 Body weight 2020-07-08 110.7 kg MD Poon 19:30:00 BMI 2020-07-08 43.24 kg/m2 MD Poon 19:30:00 Procedures Procedure Date / Time Performing Clinician Source Performed COVID-19 (ID NOW RAPID 2021-01-29 15:51:00 Nicole Mayers [facility] XR CHEST 2 VW 2021-01-29 15:22:19 Nicole Mayers [place] [facility] NOTICE OF PRIVACY 2021-01-29 14:30:18 Doctor Unassigned, [facility] PRACTICES [facility] CONSENT/REFUSAL FOR 2021-01-29 14:29:59 Doctor [place], [facility] DIAGNOSIS AND TREATMENT [facility] ASSIGNMENT OF BENEFITS 2020-09-12 21:02:43 Doctor Unassigned, [facility] POCT URINALYSIS 2020-08-01 19:07:00 Kunal Truong [facility] [place] ASSIGNMENT OF BENEFITS 2020-08-01 15:26:59 Doctor Unassigned, Un [facility] US LEG VENOUS DOPPLER 2020-07-08 19:42:48 Jaimie Avila MD And valente RIGHT PROTHROMBIN TIME 2020-07-08 16:31:00 Brent Hickey MD APTT 2020-07-08 16:31:00 Brent Hickey MD MANUAL DIFFERENTIAL 2020-07-08 16:31:00 Brent Hickey MD son COMPLETE BLOOD COUNT W/ 2020-07-08 16:31:00 Brent Hickey MD INDICES US ARM VENOUS DOPPLER LEFT 2020-07-08 16:16:57 Brent Hickey COMPLETE BLOOD COUNT W/ 2020-07-08 15:35:00 Brent Hickey MD DIFFERENTIAL COMPREHENSIVE METABOLIC 2020-07-08 15:35:00 Brent Hcikey MD PANEL MAGNESIUM LEVEL 2020-07-08 15:35:00 Brent Hickey MD PHOSPHORUS LEVEL 2020-07-08 15:35:00 Brent Hickey MD Results CBC 2020-07-08 15:35:00 Brent Hickey MD GLUCOSE LEVEL 2020-07-08 15:35:00 Brent Hickey MD BLOOD UREA NITROGEN 2020-07-08 15:35:00 Brent Hickey MD son ELECTROLYTE PANEL 2020-07-08 15:35:00 Brent Hickey MD SERUM CREATININE 2020-07-08 15:35:00 Brent Hickey MD .GLOMERULAR FILTRATION 2020-07-08 15:35:00 Brent Hickey MD RATE CALCIUM LEVEL TOTAL 2020-07-08 15:35:00 Brent Hickey MD Joe son ALBUMIN LEVEL 2020-07-08 15:35:00 Brent Hickey MD ALKALINE PHOSPHATASE 2020-07-08 15:35:00 Brent Hickey MD Joel rson ALANINE AMINOTRANSFERASE 2020-07-08 15:35:00 Brent Hickey MD ASPARTATE AMINOTRANSFERASE 2020-07-08 15:35:00 Brent Hickey TOTAL PROTEIN 2020-07-08 15:35:00 Brent Hickey MD FRACTIONATED BILIRUBIN 2020-07-08 15:35:[address] ABDOMEN PELVIS W 2020-07-08 00:46:15 Brennen Diaz MD CONTRAST XR CHEST 1 VW 2020-07-08 00:40:[address] HEAD WO CONTRAST 2020-07-07 23:24:48 Brennen Diaz MD INFLUENZA A/B + COVID-19 2020-07-07 22:47:00 Luis Antonio Diaz MD ASYMPTOMATIC-L ALBUMIN LEVEL 2020-07-07 22:24:00 Dutch, Lucy Boateng on ALKALINE PHOSPHATASE 2020-07-07 22:24:00 Dutch, Lucy Banda nderson ALANINE AMINOTRANSFERASE 2020-07-07 22:24:00 Dutch, Lucy Poon ASPARTATE AMINOTRANSFERASE 2020-07-07 22:24:00 Dutch, Lucy Poon TOTAL PROTEIN 2020-07-07 22:24:00 Dutch, Lucy Boateng on FRACTIONATED BILIRUBIN 2020-07-07 22:24:00 Dutch, Lucy Poon URINE CULTURE 2020-07-07 22:24:00 Dutch, Lucy Boateng on COMPLETE BLOOD COUNT W/ 2020-07-07 22:24:00 Dutch, Lucy Poon DIFFERENTIAL COMPREHENSIVE METABOLIC 2020-07-07 22:24:00 Dutch, Lucy Poon PANEL MAGNESIUM LEVEL 2020-07-07 22:24:00 [facility], Lucy Boateng on PHOSPHORUS LEVEL 2020-07-07 22:24:00 [facility], Lucy Trammell MD Joe son URINALYSIS WITH 2020-07-07 22:24:00 [facility], Lucy Trammell MD Kilo on MICROSCOPIC IF INDICATED AMYLASE LEVEL 2020-07-07 22:24:00 Brennen Diaz MD Joel rson LIPASE LEVEL 2020-07-07 22:24:00 Brennen Diaz MD Joel rson C REACTIVE PROTEIN 2020-07-07 22:24:00 Brennen Diaz MD nderson Results CBC 2020-07-07 22:24:00 [facility], Lucy Boateng on MANUAL DIFFERENTIAL 2020-07-07 22:24:00 [facility], Lucy Cameron derson GLUCOSE LEVEL 2020-07-07 22:24:00 [facility], Lucy Boateng on BLOOD UREA NITROGEN 2020-07-07 22:24:00 [facility], Lucy Cameron derson ELECTROLYTE PANEL 2020-07-07 22:24:00 [facility], Lucy Trammell MD Joel rson SERUM CREATININE 2020-07-07 22:24:00 [facility], Lucy Trammell MD Oje son .GLOMERULAR FILTRATION 2020-07-07 22:24:00 [facility], Lucy Poon RATE CALCIUM LEVEL TOTAL 2020-07-07 22:24:00 [facility], Lucy weissson EKG, 12-LEAD (PORTABLE) 2020-07-07 00:00:00 Brennen Diaz MD Encounters Start End Encounter Admission Attending Care Care Encounter Source Date/Time Date/Time Type Type Clinicians Facility Department ID 2021-03-18 Emergency [facility] [id number] Univers 22:29:37 ity of [facility] 2021-01-29 2021-01-29 Emergency [facility] [id number] Univers 09:53:00 11:52:00 Nicole Ott [id number] i ty [facility] [id number] [facility] [id number] [facility] 084 Branch 2020-09-12 2020-09-12 [facility] [id number] 16:00:00 23:59:00 Encounter Iliana coronathor Ott [id number] [place] [id number] [place] [id number] 2020-09-12 2020-09-12 [facility] [id number] Univers 16:00:00 23:59:00 Encounter Iliana coronathor Ott [id number] it[place] [id number] [facility] 806 Branch 2020-09-12 2020-09-12 Outpatient R [facility] [id number] Univers 00:00:00 00:00:00 Chloe FAMILIA [id number] ity o [facility] 2020-09-12 2020-09-12 Outpatient R [facility] [id number] Univers 00:00:00 00:00:00 ALLISON CoronaAna Luisa costa o f [facility] 2020-09-12 2020-09-12 Orders Doctor AMAUNEL [id number] 00:00:00 00:00:00 Only Unassigned, KARINA [id number] [place] [facility] 4.2.7.2.686 [id number] 2020-09-12 2020-09-12 Orders Doctor AMANUEL [id number] Univers 00:00:00 00:00:00 Only Unassigned, KARINA [id number] ity of [place] [facility] [id number] [place] [id number] [facility] 009 Branch 2020-08-21 2020-08-21 Outpatient R [facility] [id number] Univers 11:15:00 11:15:00 KUNAL [id number] ity o f [facility] 2020-08-02 2020-08-02 [facility] [id number] 00:00:00 00:00:00 Outreach Wilber PRIMARY [id number] [place] [facility] 4.2.7.2.686 PAVILLION [id number] 2020-08-02 2020-08-02 Patient Abimael [facility] [id number] Univers 00:00:00 00:00:00 Outreach Wilber PRIMARY [id number] i ty of [facility] [place] [id number] Ne dical [address] [place] [address] 2020-08-01 2020-08-01 [facility] [id number] 10:53:21 11:46:20 Visit Tiffaniejudy R 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 2020-08-01 2020-08-01 Outpatient Ana Luisa TRUONG [facility] [id number] Univers 10:45:00 10:45:00 ROSNDA ity o [facility] 2020-08-01 2020-08-01 Outpatient Ana Luisa TRUONG [facility] [id number] Univers 10:15:00 10:15:00 COLLEENNDA ity o [facility] 2020-08-01 2020-08-01 Outpatient R [facility] [id number] Univers 10:15:00 10:15:00 [facility] fredy o [facility] 2020-08-01 2020-08-01 Froylan [facility] [id number] Univers 00:00:00 00:00:00 Only Unassigned, KARINA [id number] it[place] of [place] [facility] 4.2.7.2.[address] [place] [id number] [facility] 009 [place] 2020-07-08 2020-07-09 Outpatient UR [facility] Emergency [id number] 08:14:00 10:47:00 HEATHER cevallos 2020-07-07 2020-07-07 Emergency ER [facility] Emergency [id number] 15:15:00 20:42:00 AVRIL cevallos 2019-11-26 2019-11-26 Nurse Arely Vizcarra [id number] [facility] 00:00:00 00:00:00 Triage KARINA [id number] it y of [facility] 4.2.7.2.686 [place] [id number] [address] 2019-11-10 2019-11-10 [facility] [id number] [facility] 15:30:00 15:30:00 GONSALO [facility] Results Test Description Test Time Test Comments Results Result Comments Source POCT URINALYSIS W SPECIFIC GRAVITY 2020-08-01 19:08:00 Test Item Value Reference Range Interpretation Comme nts POCT U SP GRAV (test code = 3255) . 1.005-1.025 POCT PH U (test code = 3254) 5 mg/dl 5-8 POCT U LEUK EST (test code = 3263) neg Negative - Negative POCT U NIT (test code = 3262) pos Negative - Negative POCT U PROT (test code = 3259) trace Negative - Negative POCT U GLU (test code = 3256) neg Negative - Negative POCT U KETONE (test code = 3258) small Negative - Negative POCT U UROBILI (test code = 3260) . 0.2-1 POCT U BILI (test code = 3261) . Negative - Negative POCT U BLD (test code = 3257) trace Negative - Negative POCT U COLOR (test code = 3266) POCT U APPEAR (test code = 3267) [facility] [id number] 19:08:00 Test Item Value Reference Range Interpretation Comments POCT U SP GRAV (test code = 3255) . 1.005-1.025 POCT PH U (test code = 3254) 5 mg/dl 5-8 POCT U LEUK EST (test code = neg Negative - Negative 3263) POCT U NIT (test code = 3262) pos Negative - Negative POCT U PROT (test code = 3259) trace Negative - Negative POCT U GLU (test code = 3256) neg Negative - Negative POCT U KETONE (test code = 3258) small Negative - Negative POCT U UROBILI (test code = 3260) . 0.2-1 POCT U BILI (test code = 3261) . Negative - Negative POCT U BLD (test code = 3257) trace Negative - Negative POCT U COLOR (test code = 3266) POCT U APPEAR (test code = 3267) [facility] URINALYSIS W SPECIFIC [id number] 19:08:00 Test Item Value Reference Range Interpretation Comments POCT U SP GRAV (test code = 3255) . 1.005-1.025 POCT PH U (test code = 3254) 5 mg/dl 5-8 POCT U LEUK EST (test code = neg Negative - Negative 3263) POCT U NIT (test code = 3262) pos Negative - Negative POCT U PROT (test code = 3259) trace Negative - Negative POCT U GLU (test code = 3256) neg Negative - Negative POCT U KETONE (test code = 3258) small Negative - Negative POCT U UROBILI (test code = 3260) . 0.2-1 POCT U BILI (test code = 3261) . Negative - Negative POCT U BLD (test code = 3257) trace Negative - Negative POCT U COLOR (test code = 3266) POCT U APPEAR (test code = 3267) [facility] URINALYSIS W SPECIFIC [id number] 19:08:00 Test Item Value Reference Range Interpretation Comments POCT U SP GRAV (test code = 3255) . 1.005-1.025 POCT PH U (test code = 3254) 5 mg/dl 5-8 POCT U LEUK EST (test code = neg Negative - Negative 3263) POCT U NIT (test code = 3262) pos Negative - Negative POCT U PROT (test code = 3259) trace Negative - Negative POCT U GLU (test code = 3256) neg Negative - Negative POCT U KETONE (test code = 3258) small Negative - Negative POCT U UROBILI (test code = 3260) . 0.2-1 POCT U BILI (test code = 3261) . Negative - Negative POCT U BLD (test code = 3257) trace Negative - Negative POCT U COLOR (test code = 3266) POCT U APPEAR (test code = 3267) [facility] [id number] 22:12:54 Test Item Value Reference Range Interpretation Comments Final Report (test code <10,000 cfu/ml Gram A = 8488) Negative Rods...10 - 50,000 cfu/ml Normal site star present. Path Review - Urine The results have been A (test code = 8483) reviewed and electronically signed by Pathologist:Lala Coon MD, PhD #[id number] Lab Interpretation Abnormal (test code = 52446-6) MD PoonPartial Thromboplastin [id number] 17:48:46 Test Item Value Reference Range Interpretation Comments aPTT (test code = 28.0 See_Comment [Automate d message] The 6773) system which ge nerated this result transmit esperanza reference range : 24.2 - 36.0 second(s). The reference range was not used to interpr et this result as onelia l/abnormal. MD PoonProthrombin Time with [id number] 17:48:45 Test Item Value Reference Range Interpretation Comments PT (test code = 6746) 13.3 See_Comment [Auto mated message] The system which ge nerated this result transmit esperanza reference range : 12.0 - 14.3 second(s). The reference range was not used to interpr et this result as onelia l/abnormal. INR (test code = 1.04 0.90-1.10 5973) MD PoonComplete Blood Count w/o [id number] 17:24:45 Test Item Value Reference Range Interpretation Comments WBC (test code = 6.0 K/uL 4.0-11.0 6690-2) RBC (test code = 789-8) 4.52 See_Comment [Au tomated message] The system [facility] [employer] generated this result transmitted ref erence range: 4.00 - 5 .50 M/uL. The refer ence range was not u sed to interpret this result as normal/abnor mal. Hgb (test code = 718-7) 10.8 See_Comment L [Au tomated message] The system [facility] [employer] generated this result transmitted ref erence range: 12.0 - 1 6.0 gm/dL. The refe rence range was not u sed to interpret this result as normal/abnor mal. Hct (test code = 35.4 % 37.0-47.0 L 4544-3) MPV (test code = 787-2) 11.6 fL 4.0-10.4 H MCH (test code = 785-6) 23.9 pg 27.0-31.0 L MCHC (test code = 30.5 See_Comment L [Automate d message] 786-4) The system [facility] [employer] generated this result transmitted ref erence range: 31.0 - 3 6.0 gm/dL. The refe rence range was not u sed to interpret this result as normal/abnor mal. RDW-SD (test code = 44.9 fL 35.1-46.3 41535-6) RDW-CV (test code = 15.9 % 12.0-15.5 H 788-0) Platelet count (test 360 K/uL [...] cell differential. [Automated mess age] The system [facility] [employer] generated this result transmitted ref erence range: <=0.0. T he reference range was not used to int erpret this result as normal/abnormal . Lab Interpretation Abnormal (test code = 54568-8) MD [id number] 17:17:55 Test Item Value Reference Range Interpretation Comments Neutrophil % (test code = 63.0 % 42.0-66.0 57760-8) Lymphocyte % (test code = 26.2 % 24.0-44.0 737-7) Monocyte % (test code = 7.8 % 2.0-7.0 H 744-3) Eosinophil % (test code = 2.0 % 1.0-4.0 713-8) Basophil % (test code = 0.8 % 0.0-1.0 707-0) IGRE % (test code = 0.2 % 0.0-0.4 IGRE % c ount 12451-7) includes Metamyelocytes, Myelocytes, and Promyelocytes. Neutrophil Abs (test code 3.88 K/uL 1.70-7.30 = 753-4) Lymphocyte Abs (test code 1.61 K/uL 1.00-4.80 = 732-8) Monocyte Abs (test code = 0.48 K/uL 0.08-0.70 743-5) Eosinophil Abs (test code 0.12 K/uL 0.04-0.40 = 712-0) Basophil Abs (test code = 0.05 K/uL 0.00-0.10 705-4) IG Abs (test code = 0.01 K/uL 0.00-0.04 30902-6) Lab Interpretation (test Abnormal code = 60599-0) MD PoonFractionated [id number] 16:11:33 Test Item Value Reference Range Interpretation [...] 28 g/L. [Automate d message] The system [employer] generated this result transmitted ref erence range: [...] normal/abnormal . Bili Indirect (test See Note 0.0-0.9 Unable t o calculate code = 5095) Indirect Biliru bin result due to some par ameters are outside rep ortable range MD PoonGlomerular Filtration [id number] 16:11:32 Test Item Value Reference Range Interpretation [...] GFR 30-444 Severely decreased GFR 15-295 Kid nadre failure <15 [Automa esperanza message] The system [employer] generated this result tra nsmitted reference range [...] failure <15 [Automa esperanza message] The system [employer] generated this result tra nsmitted reference range : >=60 mL/min/1.73 sq. m. The reference range was not used to interpret th is result as normal/abnormal . MD PoonTotal [id number] 16:11:31 Test Item Value Reference Range Interpretation Comments Total Protein (test code = 7649) 6.9 g/dL 6.4-8.3 MD PoonMagnesium [id number] 16:11:29 Test Item Value Reference Range Interpretation Comments Magnesium (test code = 6359) 1.7 mg/dL 1.6-2.6 MD PoonPhosphorus [id number] 16:11:28 Test Item Value Reference Range Interpretation Comments Phosphorus (test code = 6817) 3.2 mg/dL 2.5-4.5 MD PoonAlkaline [id number] 16:11:27 Test Item Value Reference Range Interpretation Comments Alk Phos (test code = 4768) 67 U/L 35-104 MD PoonCalcium [id number] 16:11:25 Test Item Value Reference Range Interpretation Comments Calcium Lvl (test code = 5258) 9.0 mg/dL 8.4-10.2 MD [id number] 16:11:24 Test Item Value Reference Range Interpretation Comments ALT (test code = 4705) 46 U/L See_Comment H [Aut omated message] The system [employer] generated this result transmitted ref erence range: <=33. Th e reference range was not used to int erpret this result as normal/abnormal . Lab Interpretation (test Abnormal code = 35473-1) MD PoonAlbumin [id number] 16:11:23 Test Item Value Reference Range Interpretation Comments Albumin Lvl (test code 3.5 See_Comment [Aut omated message] The = 8815) system which ge nerated this result tra nsmitted reference range : 3.5 - 5.2 gm/dL. The refe rence range was not used to interpret this result as normal/abnormal . MD Poon.Serum [id number] 16:11:22 Test Item Value Reference Range Interpretation Comments Creatinine (test code = 5399) 0.48 mg/dL 0.51-0.95 L Lab Interpretation (test code = Abnormal 35957-6) MD PoonAspartate [id number] 16:11:21 Test Item Value Reference Range Interpretation [...] mal. Lab Interpretation (test Abnormal code = 84439-3) MD [id number] 16:11:20 Test Item Value Reference Range Interpretation Comments BUN (test code = 5055) 12 mg/dL 6-23 MD PoonElectrolyte [id number] 16:11:19 Test Item Value Reference Range Interpretation Comments Sodium Lvl (test code = 135 See_Comment L [Au tomated message] 9272) The system [employer] generated this result transmitted ref erence range: 136 - 14 5 mEq/L. The refe rence range was not u sed to interpret this result as normal/abnor mal. Potassium Lvl (test code 4.0 See_Comment [A utomated message] = 1616) The system [employer] [facility] generated this result transmitted ref erence range: 3.5 - 5. 1 mEq/L. The refe rence range was not u sed to interpret this result as normal/abnor mal. Chloride (test code = 101 See_Comment [Auto mated message] 2514) The system [employer] [facility] generated this result transmitted ref erence range: 98 - 107 mEq/L. The refe rence range was not u sed to interpret this result as normal/abnor mal. CO2 (test code = 5227) 21 See_Comment L [Aut omated message] The system [employer] [facility] generated this result transmitted ref erence range: 22 - 29 mEq/L. The reference r billie was not used to interpret this result as normal/abnor mal. Anion Gap (test code = 13 See_Comment [Aut omated message] 7642) The system [employer] generated this result transmitted ref erence range: 4 - 14 m Eq/L. The reference r billie was not used to interpret this result as normal/abnor mal. Lab Interpretation (test Abnormal code = 90810-0) MD PoonGlucose [id number] 16:11:18 Test Item Value Reference Range Interpretation [...] diabetes Lab Interpretation (test Abnormal code = 53462-5) MD Poon.[id number] 15:58:44 Test Item Value Reference Range Interpretation Comments WBC (test code = See Note 4.0-11.0 A Clotted roselyn ple. Notified 6690-2) Ligi/RN at 07/08 9:54:34 AM TOOL DESIGN DRAFTER, to recollect RBC (test code = See Note See_Comment A Clotted roselyn ple. Notified 789-8) Ligi/RN at 07/08 9:54:34 AM TOOL DESIGN DRAFTER, to recollectCorrec esperanza from 4.63 M/uL on 9:58:44 TOOL DESIGN DRAFTER by Sushila Isaacs. [Aut omated message] The sy stem which generated this result transmit esperazna reference range : 4.00 - 5.50 M/uL. The reference range was not u sed to interpret this result as normal/abnormal . Hgb (test code = See Note See_Comment A Clotted roselyn ple. Notified 718-7) Ligi/RN at 07/08 9:54:34 AM TOOL DESIGN DRAFTER, to recollectCorrec esperanza from 11.2 gm/dL [LOW ] on 07/08/20 9:58:4 4 TOOL DESIGN DRAFTER by Soo Isaacs. [Automated mess age] The system which ge nerated this result tra nsmitted reference range : 12.0 - 16.0 gm/dL. The reference range was not used to interpr et this result as normal/abnormal . Hct (test code = See Note 37.0-47.0 A Clotted roselyn ple. Notified 4544-3) Ligi/RN at 07/08 9:54:34 AM TOOL DESIGN DRAFTER, to recollectCorrec esperanza from 35.5 % [LOW] on 07/08/20 9:58:44 TOOL DESIGN DRAFTER by Sushila Isaacs. MPV (test code = See Note 4.0-10.4 A Clotted roselyn ple. Notified 787-2) Ligi/RN at 07/08 9:54:34 AM TOOL DESIGN DRAFTER, to recollect MCH (test code = See Note 27.0-31.0 A Clotted roselyn ple. Notified 785-6) Ligi/RN at 07/08 9:54:34 AM TOOL DESIGN DRAFTER, to recollectCorrec esperanza from 24.2 pg [LOW] o n 07/08/20 9:58:4 4 TOOL DESIGN DRAFTER by Soo Isaacs. MCHC (test code = See Note See_Comment A Clotted sa mple. Notified 786-4) Ligi/RN at 07/08 9:54:34 AM TOOL DESIGN DRAFTER, to recollectCorrec esperanza from 31.5 gm/dL on 0 07/08/20 9:58:44 TOOL DESIGN DRAFTER by Sushila Isaacs. [Aut omated message] The sy stem which generated this result transmit esperanza reference range : 31.0 - 36.0 gm/dL. The reference range was not used to interpr et this result as normal/abnormal . RDW-SD (test code = See Note 35.1-46.3 A Clotted sample. Notified 87189-7) Ligi/RN at 07/08 9:54:34 AM TOOL DESIGN DRAFTER, to recollectCorrec esperanza from 43.3 fL on 06/19 06/07 9:58:44 TOOL DESIGN DRAFTER by Sushila Isaacs. RDW-CV (test code = See Note 12.0-15.5 A Clotted sample. Notified 788-0) Ligi/RN at 07/08 9:54:34 AM TOOL DESIGN DRAFTER, to recollectCorrec esperanza from 15.7 % [HI] on 07/08/20 9:58:44 TOOL DESIGN DRAFTER by Sushila Isaacs. Platelet count (test See Note 140-440 A Clotted sample. Notified code = 777-3) Ligi/RN at 06/19 9:54:34 AM TOOL DESIGN DRAFTER, to recollect Lab Interpretation Abnormal (test code = 54217-9) MD PoonInfluenza A/B + COVID-19 Asymptomatic- [id number] 23:31:26 Test Item Value Reference Range Interpretation Comments Influenza A (test Not Detected Not Detected code = 21299-5) Influenza B (test Not Detected Not Detected code = 87571-3) COVID19 Not Detected Not Detected (SARS-CoV-2) (test code = 25038-8) COVID19 SARS Inpatient Indication (test Admission code = 68048) Inf AB+Cov19 See Note The rene SARS- CoV-2 Comment (test & Influenza A/ B code = 91238) nucleic acid t est for use on the jennifer s Anast[employer] System is a mul tiplex real-time RT-PC R assay intended for the [...] sheet for patie nts provided by the center lead consultant ([employer]) can be rev iewed at: https://www.fda .gov/m edia/133362/oksana nloadA fact sheet for Health Care providers is provided by the center lead consultant (Ana Luisa redman [employer]) and can be reviewed at: https://www.fda .gov/m altonia/998090/oksana nload Influenza A and Influenza B neg ative results should be considered presumptive in samples that dowell ve a positive SARS-C oV-2 result. If co-infection wi th influenza A or influenza B vir us is suspected in sa mples with a positive SARS-CoV-2 resu lts, the sample shou ld be re-tested with another approve d influenza test. This assay has been authorized by t[place] x[facility]g [facility] for use only un abhishek Emergency Use Authorization ( EUA) in laboratories that have been CLIA-certified to perform moderate-comple xity and high-comple xity tests. The [facility] at [facility], CLIA Accreditation #[id number] and CAP Accreditation #[id number], verif ied the performance characteristics of this assay. Int ernal controls are us ed to monitor all sta ges of the test proces s. MD [id number] 23:08:03 Test Item Value Reference Range Interpretation Comments CRP (test code = 5.96 mg/L Reference r page hospital for HS CRP 5235) assay are as fo llows: Reference range s when used to assess cardi ac risk: <1.00 mg/L Low cardiovascular risk 1.00-3.00 mg/L Average cardiovascular risk >3.00 mg/L High cardi ovascular risk.Reference ranges when used to assess inflammatory responses: Les s than or equal to 10.00 mg/L. MD [id number] 23:05:14 Test Item Value Reference Range Interpretation Comments Lipase Lvl (test code = 6165) 24 U/L 13-60 MD [id number] 23:05:13 Test Item Value Reference Range Interpretation Comments Amylase Lvl (test code = 4806) 52 U/L 28-100 MD PoonUrinalysis w/Microscopic if [id number] 22:59:11 Test Item Value Reference Range Interpretation Comments UA Color (test code Yellow Yellow = 3632) UA Appear (test code Clear Clear = 2458) UA Glucose (test NEG NEG mg/dL code [...]
[2021-05-27 05:16] LABS: SARS-COV-2 RT PCR POSITIVE (NEGATIVE)
[2021-05-27] MEDS ORDERED: LIDOCAINE VISCOUS 2% SOLN 15 ML UDC ONE (05:25)
--- NOTE | 2021-05-27 06:23 | ER ---
Nurse's Notes [facility] Name: Melody Dominguez Age: 46 yrs Sex: Female : 1975 Arrival Date: 05/27/2021 Time: 03:59 Bed 13 Private MD: Diagnosis: Coronavirus infection, unspecified-COVID 19 POSITIVE;Fever, unspecified;Acute pharyngitis, unspecified Presentation: 05/27 04:02 Chief complaint: Patient states: covid like symptoms started Thursday 05/25.. sore tw5 throat, cough, body aches, headache, ear pain. denies fever at home. Denies SOB. Coronavirus screen: Client denies travel out of the [place] in the last 14 days. chills, congestion, cough unrelated to allergies, fatigue, headache, muscle pain, runny nose, sore throat, Client presents with at least one sign or symptom that may indicate coronavirus-19. Standard/surgical mask placed on the client. Ebola Screen: No symptoms or risks identified at this time. Initial Sepsis Screen: Does the patient meet any 2 criteria? No. Patient's initial sepsis screen is negative. Does the patient have a suspected source of infection? No. Patient's initial sepsis screen is negative. Risk Assessment: Do you want to hurt yourself or someone else? Patient reports no desire to harm self or others. Onset of symptoms was May 25, 2021. 04:02 Method Of Arrival: Ambulatory tw5 04:02 Acuity: ALMA 4 tw5 Triage Assessment: 04:07 General: Appears in no apparent distress. uncomfortable, Behavior is calm, cooperative. tw5 Pain: Complains of pain in throat. EENT: No deficits noted. Neuro: Level of Consciousness is awake, alert, obeys commands, Oriented to person, place, time, situation. Cardiovascular: Capillary refill < 3 seconds JVD is absent Patient's skin is warm and dry. Respiratory: Airway is patent Trachea midline Respiratory effort is even, unlabored, Respiratory pattern is regular, symmetrical. GI: No deficits noted. No signs and/or symptoms were reported involving the gastrointestinal system. : No deficits noted. No signs and/or symptoms were reported regarding the genitourinary system. Derm: No deficits noted. No signs and/or symptoms reported regarding the dermatologic system. Musculoskeletal: No deficits noted. No signs and/or symptoms reported regarding the musculoskeletal system. 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 - Social history:: Smoking status: Patient denies any tobacco usage or history of. Screenin:35 Abuse screen: Denies threats or abuse. Nutritional screening: No deficits noted. tw5 Tuberculosis screening: No symptoms or risk factors identified. Fall Risk None identified. Assessment: 05:34 Reassessment: Patient appears in no apparent distress at this time. No changes from tw5 previously documented assessment. Patient and/or family updated on plan of care and expected duration. Pain level reassessed. Patient is alert, oriented x 3, equal unlabored respirations, skin warm/dry/pink. General: Appears in no apparent distress. uncomfortable, Behavior is calm, cooperative. Pain: Complains of pain in throat. Neuro: Level of Consciousness is awake, alert, obeys commands, Oriented to person, place, time, situation, Gait is steady, Speech is normal. Cardiovascular: Capillary refill < 3 seconds JVD is absent Patient's skin is warm and dry. Respiratory: Airway is patent Trachea midline Respiratory effort is even, unlabored, Respiratory pattern is regular, symmetrical. GI: No deficits noted. No signs and/or symptoms were reported involving the gastrointestinal system. : No deficits noted. No signs and/or symptoms were reported regarding the genitourinary system. Derm: No deficits noted. No signs and/or symptoms reported regarding the dermatologic system. 05:38 EENT: Throat is reddened. tw5 05:38 Respiratory: Breath sounds are clear bilaterally. tw5 Vital Signs: 04:02 BP 174 / 96; Pulse 103; Resp 18; Temp 99.7(TE); Pulse Ox 99% on R/A; Weight 108.86 kg tw5 (R); Height 5 ft. 3 in. (160.02 cm) (R); Pain 10/10; 05:37 BP 162 / 88; Pulse 96; Resp 18; Pulse Ox 99% on R/A; tw5 04:02 Body Mass Index 42.51 (108.86 kg, 160.02 cm) tw ED Course: 03:59 Patient arrived in ED. bp1 04:07 Triage completed. tw 04:07 Arm band placed on. tw 04:18 Dena Pearce is Primary Nurse. 05:35 Patient has correct armband on for positive identification. Bed in low position. Call tw5 light in reach. Side rails up X 1. 05:35 No provider procedures requiring assistance completed. 05:49 Giovanni Poon MD is Attending Physician. [facility] 06:56 Patient did not have IV access during this emergency room visit. Administered Medications: 05:36 Drug: Viscous Lidocaine Liquid (4 %) 10 ml Route: Mucous Membrane; 05:36 Follow up: Response: No adverse reaction 06:50 Follow up: Response: No adverse reaction 06:49 Drug: Aspirin Chewable Tablet 324 mg Route: PO; 06:50 Follow up: Response: No adverse reaction 06:49 Drug: Zithromax (azithromycin) 500 mg Route: PO; 06:49 Follow up: Response: No adverse reaction 06:49 Drug: Pepcid (famotidine) 40 mg Route: PO; 06:49 Follow up: Response: No adverse reaction 06:49 Drug: Tylenol 1000 mg Route: PO; 06:49 Follow up: Response: No adverse reaction Outcome: 06:22 Discharge ordered by . vicente 06:56 Discharged to home 06:56 Condition: stable 06:56 Discharge instructions given to patient, Prescriptions given X 4. 06:56 Patient left the ED. Signatures: Giovanni Poon MD MD cha Paniauga, Brittany bp1 Dena Pearce Corrections: (The following items were deleted from the chart) 04:09 04:07 PMHx: Diabetes - NIDDM; tw
--- NOTE | 2021-05-27 06:23 | EDPHYS ---
Physician Documentation [facility] Name: Melody Dominguez Age: 46 yrs Sex: Female : 1975 Arrival Date: 05/27/2021 Time: 03:59 Bed 13 Private MD: ED Physician Giovanni Poon HPI: 05/27 06:17 This 46 yrs old Female presents to ER via Ambulatory with complaints of Sore vicente Throat, Headache, Neck Pain, >24Hrs Old. 06:17 The patient presents with sore throat. The patient describes throat pain as burning. vicente Onset: The symptoms/episode began/occurred 2 day(s) ago. Severity of symptoms: At their worst the symptoms were mild, moderate, in the emergency department the symptoms have resolved. Modifying factors: The symptoms are alleviated by nothing, the symptoms are aggravated by swallowing. Associated signs and symptoms: Pertinent positives: cough, nausea, rhinorrhea. The patient has not experienced similar symptoms in the past. 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 - Social history:: Smoking status: Patient denies any tobacco usage or history of. ROS: 06:18 Constitutional: Negative for fever, chills, and weight loss, Eyes: Negative for injury, vicente pain, redness, and discharge, Neck: Negative for injury, pain, and swelling, Cardiovascular: Negative for chest pain, palpitations, and edema, Respiratory: Negative for shortness of breath, cough, wheezing, and pleuritic chest pain, Abdomen/GI: Negative for abdominal pain, nausea, vomiting, diarrhea, and constipation, Back: Negative for injury and pain, : Negative for injury, bleeding, discharge, and swelling, MS/Extremity: Negative for injury and deformity, Skin: Negative for injury, rash, and discoloration, Neuro: Negative for headache, weakness, numbness, tingling, and seizure, Psych: Negative for depression, anxiety, suicide ideation, homicidal ideation, and hallucinations, Allergy/Immunology: Negative for hives, rash, and allergies, Endocrine: Negative for neck swelling, polydipsia, polyuria, polyphagia, and marked weight changes, Hematologic/Lymphatic: Negative for swollen nodes, abnormal bleeding, and unusual bruising. 06:18 ENT: Positive for difficulty swallowing. Exam: 06:18 Constitutional: This is a well developed, well nourished patient who is awake, alert, vicente and in no acute distress. Head/Face: Normocephalic, atraumatic. Eyes: Pupils equal round and reactive to light, extra-ocular motions intact. Lids and lashes normal. Conjunctiva and sclera are non-icteric and not injected. Cornea within normal limits. Periorbital areas with no swelling, redness, or edema. Neck: Trachea midline, no thyromegaly or masses palpated, and no cervical lymphadenopathy. Supple, full range of motion without nuchal rigidity, or vertebral point tenderness. No Meningismus. Chest/axilla: Normal chest wall appearance and motion. Nontender with no deformity. No lesions are appreciated. Cardiovascular: Regular rate and rhythm with a normal S1 and S2. No gallops, murmurs, or rubs. Normal PMI, no JVD. No pulse deficits. Respiratory: Lungs have equal breath sounds bilaterally, clear to auscultation and percussion. No rales, rhonchi or wheezes noted. No increased work of breathing, no retractions or nasal flaring. Abdomen/GI: Soft, non-tender, with normal bowel sounds. No distension or tympany. No guarding or rebound. No evidence of tenderness throughout. Back: No spinal tenderness. No costovertebral tenderness. Full range of motion. Female : Normal external genitalia. Skin: Warm, dry with normal turgor. Normal color with no rashes, no lesions, and no evidence of cellulitis. MS/ Extremity: Pulses equal, no cyanosis. Neurovascular intact. Full, normal range of motion. Neuro: Awake and alert, GCS 15, oriented to person, place, time, and situation. Cranial nerves II-XII grossly intact. Motor strength 5/5 in all extremities. Sensory grossly intact. Cerebellar exam normal. Normal gait. Psych: Awake, alert, with orientation to person, place and time. Behavior, mood, and affect are within normal limits. 06:18 ENT: TM's: are normal, Posterior pharynx: Airway: normal, no evidence of obstruction, Tonsils: with erythema, Uvula: midline, non-edematous, erythema, swelling, that is moderate, erythema, that is moderate, exudate, is not appreciated, peritonsillar mass, is not appreciated, pooling of secretions, is not appreciated. Vital Signs: 04:02 BP 174 / 96; Pulse 103; Resp 18; Temp 99.7(TE); Pulse Ox 99% on R/A; Weight 108.86 kg tw5 (R); Height 5 ft. 3 in. (160.02 cm) (R); Pain 02/24; 05:37 BP 162 / 88; Pulse 96; Resp 18; Pulse Ox 99% on R/A; tw5 04:02 Body Mass Index 42.51 (108.86 kg, 160.02 cm) tw MDM: 05:50 Patient medically screened. vicente 05/27 04:12 Order name: COVID-19/FLU A+B (Document "Date of Onset" if Symptomatic) 05/27 04:12 Order name: Strep 05/27 04:51 Order name: Throat Culture EDMS Administered Medications: 05:36 Drug: Viscous Lidocaine Liquid (4 %) 10 ml Route: Mucous Membrane; 05:36 Follow up: Response: No adverse reaction 06:50 Follow up: Response: No adverse reaction 06:49 Drug: Aspirin Chewable Tablet 324 mg Route: PO; 06:50 Follow up: Response: No adverse reaction 06:49 Drug: Zithromax (azithromycin) 500 mg Route: PO; 06:49 Follow up: Response: No adverse reaction 06:49 Drug: Pepcid (famotidine) 40 mg Route: PO; 06:49 Follow up: Response: No adverse reaction 06:49 Drug: Tylenol 1000 mg Route: PO; 06:49 Follow up: Response: No adverse reaction Disposition Summary: 05/27/21 06:22 Discharge Ordered Location: Home vicente Problem: new vicente Symptoms: have improved vicente Condition: Stable vicente Diagnosis - Coronavirus infection, unspecified - COVID 19 POSITIVE vicente - Fever, unspecified [facility] - Acute pharyngitis, unspecified vicente Followup: [facility] - With: Private Physician - When: 2 - 3 days - Reason: Recheck today's complaints, Continuance of care, Re-evaluation by your physician Discharge Instructions: - Discharge Summary Sheet [facility] - Fever, Adult [facility] - Sore Throat [facility] - Upper Respiratory Infection, Adult [facility] - Viral Respiratory Infection [facility] - Upper Respiratory Infection, Adult, Nlbr-uw-Xejy [facility] - Pharyngitis, Afyl-xl-Pbbi [facility] - Viral Respiratory Infection, Blud-Gq-Vuaf [facility] - Aspirin and Your Heart [facility] - Sore Throat, Kqwy-yc-Qljb [facility] - Fever, Adult, Xxiz-vx-Gjrg [facility] - COVID-19 [facility] - COVID-19 Frequently Asked Questions [facility] - Things You Can Do to Manage Your COVID-19 Symptoms at Home - [facility] - Viral Illness, Adult [facility] - COVID-19: Quarantine vs. Isolation - [facility] Forms: - Medication Reconciliation Form [facility] - Thank You Letter [facility] - Antibiotic Education [facility] - Prescription Opioid Use [facility] Prescriptions: - ivermectin 3 mg Oral tablet - take 5 tablet by ORAL route once daily; 15 tablet; Refills: 0, Product [facility] Selection Permitted - Pepcid 20 mg Oral Tablet - take 1 tablet by ORAL route every 12 hours for 30 days; 60 tablet; Refills: 0, [facility] Product Selection Permitted - Singulair 10 mg Oral Tablet - take 1 tablet by ORAL route At bedtime; 30 tablet; Refills: 0, Product [facility] Selection Permitted - Zithromax 500 mg Oral Tablet - take 1 tablet by ORAL route once daily for 4 days; 4 tablet; Refills: 0, [facility] Product Selection Permitted Signatures: Dispatcher [employer] Giovanni Fitzpatrick MD MD cha Wood, Tiffany tw5 Corrections: (The following items were deleted from the chart) 04:09 04:07 PMHx: Diabetes - NIDDM; tw5 tw5
[2021-05-27] MEDS ORDERED: ACETAMINOPHEN 500 MG TAB ONE (06:45)
[2021-05-27] MEDS ORDERED: AZITHROMYCIN 250 MG TAB ONE (06:46)
[2021-05-27] MEDS ORDERED: ASPIRIN 81 MG CHEWABLE TABLET ONE (06:46)
[2021-05-27] MEDS ORDERED: FAMOTIDINE 20 MG TAB ONE (06:46)
[2021-05-27 07:10] VITALS: TEMP 99.7; O2SAT 99
[2021-05-27 07:19] VITALS: BP 162/88
== END 2021-05-27 06:56 | disposition home or self-care (01) ==
LOC: ER 03:54
DX: U07.1 COVID-19 (principal); J02.9 Acute pharyngitis, unspecified; I10 Essential (primary) hypertension; Z98.84 Bariatric surgery status
CPT/HCPCS: 0240U; 87070; 87081; 99283